=== PATIENT | male | born 1965 | race African-American/Black ===

== ENCOUNTER 2017-09-08 05:21 | Inpatient (IN) | payer MEDICARE, MEDICAID ==
[~2017-09-08] VITALS: Ht 170.2 cm; Wt 111.8 kg
[2017-09-08] VITALS (56 sets, daily range): BP systolic 77–166; BP diastolic 42–109
[~2017-09-08 05:21] MED LIST: ASPI-1158; FUROSEMIDE; GLYBURIDE; LISINOPRIL
[2017-09-08] MEDS ORDERED: SODIUM CHLORIDE 0.9% 500 ML IV ONE (05:36)
[2017-09-08] MEDS ORDERED: ONDANSETRON HCL 4MG/2ML VIAL IV STA (05:36)
[2017-09-08] MEDS ORDERED: PHENYTOIN SODIUM 500 MG in SODIUM CHLORIDE 0.9% 50 ML IV ONE (06:15)
[2017-09-08] MEDS ORDERED: NICARDIPINE 100 MG in SODIUM CHLORIDE 0.9% 60 ML IV PRN ×2 (06:15→07:30)
[2017-09-08] MEDS ORDERED: LABETALOL 5MG/ML SYR 20 MG/4 ML SYRINGE IV ONE (06:15)
[2017-09-08] MEDS ORDERED: NICARDIPINE 100 MG in SODIUM CHLORIDE 0.9% 60 ML IV ONE (06:30)
[2017-09-08] MEDS ORDERED: DEXAMETHASONE 10 MG/ML VIAL IV ONE (06:30)
[2017-09-08 06:32] LABS: BASOPHILS % 0.7 % (0.0-2.0); EOSINOPHILS % 0.8 % (0.0-5.0); HEMATOCRIT. 33.3 % (42.0-52.0); HEMOGLOBIN. 11.5 g/dL (14.0-18.0); LYMPHOCYTES % 12.9 % (20.0-50.0); MEAN CORPUSCULAR HEMOGLOBIN 35.4 pg (28.0-32.0); MEAN PLATELET VOLUME 8.3 fl (7.4-10.4); MONOCYTES % 6.3 % (2.0-8.0); NEUTROPHILS % 79.3 % (40.0-76.0); PLATELET 152 x1000/uL (130-400); RED BLOOD CELL COUNT 3.26 mill/uL (4.7-6.1); RED CELL DISTRIBUTION WIDTH 16.7 % (11.6-14.6)
[2017-09-08 06:33] LABS: INR 1.1; PROTHROMBIN TIME 11.7 sec (9.4-11.6)
[2017-09-08 06:52] LABS: CARBON DIOXIDE 28 mEq/L (21-32); CHLORIDE 96 mEq/L (98-107); CREATINE KINASE 124 IU/L (39-308); ETHANOL BLOOD < 10 mg/dL; LDL CHOLESTEROL 98 mg/dL (5-100); TROPONIN I < 0.02 ng/mL (0.00-0.04)
[2017-09-08] MEDS ORDERED: FENTANYL CITRATE/PF 50MCG/ML 2ML VIAL IV ONE (07:00)
[2017-09-08] MEDS ORDERED: ONDANSETRON HCL 4MG/2ML VIAL IV PRN ×2 (07:30→14:15)
[2017-09-08 08:12] LABS: CLARITY URINE CLEAR (CLEAR); COLOR URINE YELLOW (YELLOW); KETONES URINE NEGATIVE (NEGATIVE); LEUKOCYTE ESTERASE URINE NEGATIVE (NEGATIVE); NITRITE URINE NEGATIVE (NEGATIVE); OCCULT BLOOD URINE TRACE (NEGATIVE); PH URINE 8.5 (4.5-8.0); PROTEIN URINE 3+ (NEGATIVE); SPECIFIC GRAVITY URINE 1.011 (1.005-1.030); UROBILINOGEN URINE 0.2 E.U./dL (0.2-1.0)
[2017-09-08] MEDS: DEXT 5%/LACTATED RINGERS 1,000 ML IV SCH (08:49)
[2017-09-08] MEDS ORDERED: DEXTROSE 50% WATER 50ML SYRINGE IV PRN (09:00)
[2017-09-08 09:28] LABS: *AMPHETAMINES SCREEN URINE NEGATIVE (NEGATIVE); *BARBITURATES SCREEN URINE NEGATIVE (NEGATIVE); *BENZODIAZEPINES SCREEN URINE NEGATIVE (NEGATIVE); *COCAINE SCREEN URINE NEGATIVE (NEGATIVE); CANNABINOID URINE SCREEN NEGATIVE (NEGATIVE); METHADONE URINE SCREEN NEGATIVE (NEGATIVE); OPIATES URINE SCREEN PRESUMTIVE POSITIVE (NEGATIVE); PHENCYCLIDINE URINE SCREEN NEGATIVE (NEGATIVE)
[2017-09-08] MEDS: PANTOPRAZOLE SODIUM 40 MG/VIAL IV SCH (11:12)
[2017-09-08] MEDS: MORPHINE SULFATE 2 MG/ML CPJ (NOT FOR IM USE) IV PRN ×2 (11:17→23:51)
[2017-09-08] MEDS: BLOOD SUGAR DIAGNOSTIC STRIP TEST SCH ×4 (11:30→21:00)
[2017-09-08 12:24] LABS: BG BASE EXCESS -2.2 mmol/L (-2.0-2.0); BG CARBOXYHEMOGLOBIN 0.7 % (0.5-1.5); BG DEOXYHEMOGLOBIN 11.1 % (0.0-5.0); BG FRACTION INSPIRED OXYGEN 21; BG HCO3 ACT 23.6 mmol/L (22.0-26.0); BG METHEMOGLOBIN 0.8 % (0.0-1.5); BG OXYGEN SATURATION 88.7 % (92.0-98.5); BG OXYHEMOGLOBIN 87.4 % (94.0-97.0); BG PCO2 44.3 mmHg (35.0-45.0); BG PH 7.344 (7.350-7.450); BG PO2 63.3 mmHg (75.0-100.0); BG SAMPLE SITE RIGHT RADIAL; BG TOTAL HEMOGLOBIN 11.6 g/dL (12.0-18.0); BG VENT MODE ROOM AIR
[2017-09-08] MEDS: NICARDIPINE 100 MG in SODIUM CHLORIDE 0.9% 60 ML IV PRN ×2 (13:13→21:35)
[2017-09-08] MEDS: DEXAMETHASONE 4MG/ML 1ML VIAL IV SCH ×3 (13:48→23:31)
[2017-09-08] MEDS: PHENYTOIN SODIUM 250MG/5ML VIAL IV SCH ×2 (13:51→23:27)
[2017-09-08] MEDS: INSULIN LISPRO 100 UNITS/ML SUBCUT SCH ×3 (13:51→23:34)
[2017-09-08] MEDS ORDERED: SODIUM POLYSTYRENE SULFONATE 15 G/60 ML BOT PR NR (15:15)
[2017-09-08] MEDS ORDERED: INSULIN REGULAR (HUMULIN R) UD 100 UNITS/ML SYR IV NR ×2 (17:15→18:30)
[2017-09-08] MEDS ORDERED: DEXTROSE 50% WATER 50ML SYRINGE IV NR (17:15)
[2017-09-08] MEDS ORDERED: CALCIUM GLUCONATE 1,000 MG in DEXT 5% WATER 90 ML IV NR (17:15)
[2017-09-09] VITALS (90 sets, daily range): BP systolic 76–187; BP diastolic 29–134
[2017-09-09] MEDS: DEXT 5%/LACTATED RINGERS 1,000 ML IV SCH ×3 (03:30→23:30)
[2017-09-09] MEDS: PHENYTOIN SODIUM 250MG/5ML VIAL IV SCH ×3 (05:20→22:13)
[2017-09-09] MEDS: DEXAMETHASONE 4MG/ML 1ML VIAL IV SCH ×3 (05:20→18:07)
[2017-09-09] MEDS: BLOOD SUGAR DIAGNOSTIC STRIP TEST SCH ×4 (05:42→21:00)
[2017-09-09 05:55] LABS: HEMATOCRIT. 29.4 % (42.0-52.0); HEMOGLOBIN. 10.2 g/dL (14.0-18.0); MEAN CORPUSCULAR VOLUME 100.2 fL (80.0-94.0); MEAN PLATELET VOLUME 9.1 fl (7.4-10.4); PLATELET 150 x1000/uL (130-400); RED BLOOD CELL COUNT 2.93 mill/uL (4.7-6.1); RED CELL DISTRIBUTION WIDTH 16.4 % (11.6-14.6)
[2017-09-09] MEDS: INSULIN LISPRO 100 UNITS/ML SUBCUT SCH ×4 (06:24→22:14)
[2017-09-09 06:37] LABS: CARBON DIOXIDE 24 mEq/L (21-32); CHLORIDE 97 mEq/L (98-107)
[2017-09-09 07:18] LABS: PHOSPHORUS 8.7 mg/dL (2.5-4.9)
[2017-09-09] MEDS ORDERED: IPRATROPIUM/ALBUTEROL 0.5-3(2.5)MG/3ML NEB HHN PRN (08:30)
[2017-09-09] MEDS ORDERED: IOHEXOL-350 100 ML BOTTLE ONE (09:03)
[2017-09-09] MEDS: BUDESONIDE 0.5MG/2ML NEB HHN SCH ×2 (09:05→20:33)
[2017-09-09] MEDS: IPRATROPIUM/ALBUTEROL 0.5-3(2.5)MG/3ML NEB HHN SCH ×3 (09:05→20:34)
[2017-09-09] MEDS: PANTOPRAZOLE SODIUM 40 MG/VIAL IV SCH (10:08)
[2017-09-09] MEDS: NICARDIPINE 100 MG in SODIUM CHLORIDE 0.9% 60 ML IV PRN ×2 (13:27→20:22)
[2017-09-09] MEDS: CLONIDINE 0.1MG TABLET PO PRN (18:06)
[2017-09-09 18:56] LABS: ATYPICAL LYMPHOCYTES 2; PLATELET ESTIMATE NORMAL
[2017-09-09] MEDS: MORPHINE SULFATE 2 MG/ML CPJ (NOT FOR IM USE) IV PRN (23:57)
[2017-09-10] VITALS (89 sets, daily range): BP systolic 78–177; BP diastolic 26–120
[2017-09-10] MEDS: DEXAMETHASONE 4MG/ML 1ML VIAL IV SCH ×4 (00:29→17:43)
[2017-09-10] MEDS: IPRATROPIUM/ALBUTEROL 0.5-3(2.5)MG/3ML NEB HHN SCH ×4 (02:03→20:47)
[2017-09-10] MEDS: DEXT 5%/LACTATED RINGERS 1,000 ML IV SCH (04:25)
[2017-09-10 05:54] LABS: HEMATOCRIT. 27.6 % (42.0-52.0); HEMOGLOBIN. 9.4 g/dL (14.0-18.0); MEAN CORPUSCULAR HEMOGLOBIN 34.6 pg (28.0-32.0); MEAN CORPUSCULAR VOLUME 101.4 fL (80.0-94.0); MEAN PLATELET VOLUME 8.7 fl (7.4-10.4); PLATELET 125 x1000/uL (130-400); RED BLOOD CELL COUNT 2.72 mill/uL (4.7-6.1); RED CELL DISTRIBUTION WIDTH 16.5 % (11.6-14.6)
[2017-09-10] MEDS: PHENYTOIN SODIUM 250MG/5ML VIAL IV SCH ×3 (06:41→21:38)
[2017-09-10] MEDS: BLOOD SUGAR DIAGNOSTIC STRIP TEST SCH ×4 (06:48→21:38)
[2017-09-10] MEDS: INSULIN LISPRO 100 UNITS/ML SUBCUT SCH ×4 (06:52→21:44)
[2017-09-10] MEDS: BUDESONIDE 0.5MG/2ML NEB HHN SCH ×2 (08:45→20:48)
[2017-09-10] MEDS: PANTOPRAZOLE SODIUM 40 MG/VIAL IV SCH (09:30)
[2017-09-10] MEDS: AMLODIPINE 5MG TABLET PO SCH (09:30)
[2017-09-10] MEDS ORDERED: SODIUM POLYSTYRENE SULFONATE 15 G/60 ML BOT PO NR (10:30)
[2017-09-10 14:01] LABS: PLATELET ESTIMATE SLIGHTLY DECREASED
[2017-09-10] MEDS: CLONIDINE 0.1MG TABLET PO PRN (14:34)
[2017-09-10] MEDS ORDERED: LORAZEPAM 2MG/ML CPJ IV PRN (17:33)
[2017-09-10] MEDS: LEVETIRACETAM 500MG PREMIX 100 ML IV SCH (18:19)
[2017-09-10] MEDS: MORPHINE SULFATE 2 MG/ML CPJ (NOT FOR IM USE) IV PRN (19:37)
[2017-09-10] MEDS ORDERED: PHENYTOIN SODIUM EXTENDED 100MG CAPSULE PO SCH (22:00)
[2017-09-11] VITALS (92 sets, daily range): BP systolic 88–206; BP diastolic 40–118
[2017-09-11] MEDS: DEXAMETHASONE 4MG/ML 1ML VIAL IV SCH ×5 (00:30→23:34)
[2017-09-11] MEDS: MORPHINE SULFATE 2 MG/ML CPJ (NOT FOR IM USE) IV PRN ×2 (01:23→13:29)
[2017-09-11] MEDS: IPRATROPIUM/ALBUTEROL 0.5-3(2.5)MG/3ML NEB HHN SCH ×4 (01:26→20:29)
[2017-09-11] MEDS: PHENYTOIN SODIUM 250MG/5ML VIAL IV SCH (05:08)
[2017-09-11 05:24] LABS: HEMATOCRIT. 31.8 % (42.0-52.0); HEMOGLOBIN. 10.5 g/dL (14.0-18.0); MEAN CORPUSCULAR HEMOGLOBIN 33.5 pg (28.0-32.0); MEAN CORPUSCULAR VOLUME 100.9 fL (80.0-94.0); MEAN PLATELET VOLUME 9.2 fl (7.4-10.4); PLATELET 137 x1000/uL (130-400); RED BLOOD CELL COUNT 3.15 mill/uL (4.7-6.1); RED CELL DISTRIBUTION WIDTH 16.3 % (11.6-14.6)
[2017-09-11] MEDS: LEVETIRACETAM 500MG PREMIX 100 ML IV SCH ×2 (06:23→17:34)
[2017-09-11] MEDS: BLOOD SUGAR DIAGNOSTIC STRIP TEST SCH ×4 (06:23→21:09)
[2017-09-11] MEDS: INSULIN LISPRO 100 UNITS/ML SUBCUT SCH ×4 (06:36→21:58)
[2017-09-11 07:41] LABS: PLATELET ESTIMATE NORMAL
[2017-09-11] MEDS: BUDESONIDE 0.5MG/2ML NEB HHN SCH ×2 (07:54→20:29)
[2017-09-11] MEDS: AMLODIPINE 5MG TABLET PO SCH (09:00)
[2017-09-11 09:30] LABS: BG CARBOXYHEMOGLOBIN 0.3 % (0.5-1.5); BG DEOXYHEMOGLOBIN 5.4 % (0.0-5.0); BG FRACTION INSPIRED OXYGEN 21; BG HCO3 ACT 22.2 mmol/L (22.0-26.0); BG METHEMOGLOBIN 0.3 % (0.0-1.5); BG OXYGEN SATURATION 94.6 % (92.0-98.5); BG PCO2 40.3 mmHg (35.0-45.0); BG PH 7.359 (7.350-7.450); BG PO2 81.2 mmHg (75.0-100.0); BG SAMPLE SITE RIGHT RADIAL; BG VENT MODE ROOM AIR
[2017-09-11] MEDS: PANTOPRAZOLE SODIUM 40 MG/VIAL IV SCH (09:35)
[2017-09-11] MEDS ORDERED: PHENYTOIN SODIUM 500 MG in SODIUM CHLORIDE 0.9% 50 ML IV NR (14:30)
[2017-09-11] MEDS: PHENYTOIN SODIUM 100MG/2ML VIAL IV SCH ×2 (16:45→21:57)
[2017-09-12] VITALS (99 sets, daily range): BP systolic 82–178; BP diastolic 33–121
[2017-09-12] MEDS: IPRATROPIUM/ALBUTEROL 0.5-3(2.5)MG/3ML NEB HHN SCH ×4 (00:42→20:02)
[2017-09-12] MEDS: PHENYTOIN SODIUM 100MG/2ML VIAL IV SCH ×3 (05:20→21:21)
[2017-09-12] MEDS: DEXAMETHASONE 4MG/ML 1ML VIAL IV SCH ×3 (05:20→17:01)
[2017-09-12] MEDS: BLOOD SUGAR DIAGNOSTIC STRIP TEST SCH ×4 (05:37→21:35)
[2017-09-12 05:58] LABS: HEMATOCRIT. 29.9 % (42.0-52.0); MEAN CORPUSCULAR HEMOGLOBIN 33.5 pg (28.0-32.0); MEAN CORPUSCULAR VOLUME 100.7 fL (80.0-94.0); MEAN PLATELET VOLUME 9.1 fl (7.4-10.4); PLATELET 124 x1000/uL (130-400); RED BLOOD CELL COUNT 2.97 mill/uL (4.7-6.1)
[2017-09-12] MEDS: LEVETIRACETAM 500MG PREMIX 100 ML IV SCH (06:09)
[2017-09-12] MEDS: INSULIN LISPRO 100 UNITS/ML SUBCUT SCH ×4 (06:09→21:43)
[2017-09-12] MEDS: MORPHINE SULFATE 2 MG/ML CPJ (NOT FOR IM USE) IV PRN (06:32)
[2017-09-12] MEDS: CLONIDINE 0.1MG TABLET PO PRN (06:33)
[2017-09-12] MEDS: BUDESONIDE 0.5MG/2ML NEB HHN SCH (08:19)
[2017-09-12 08:53] LABS: BG BASE EXCESS -1.5 mmol/L (-2.0-2.0); BG CARBOXYHEMOGLOBIN 0.4 % (0.5-1.5); BG DEOXYHEMOGLOBIN 5.9 % (0.0-5.0); BG HCO3 ACT 24.8 mmol/L (22.0-26.0); BG METHEMOGLOBIN 0.3 % (0.0-1.5); BG OXYGEN SATURATION 94.1 % (92.0-98.5); BG OXYHEMOGLOBIN 93.4 % (94.0-97.0); BG PCO2 48.3 mmHg (35.0-45.0); BG PH 7.328 (7.350-7.450); BG PO2 78.8 mmHg (75.0-100.0); BG SAMPLE SITE RIGHT BRACHIAL; BG TOTAL HEMOGLOBIN 11.2 g/dL (12.0-18.0); BG VENT MODE ROOM AIR
[2017-09-12] MEDS: AMLODIPINE 5MG TABLET PO SCH (09:00)
[2017-09-12 09:07] LABS: PLATELET ESTIMATE SLIGHTLY DECREASED
[2017-09-12] MEDS ORDERED: ACETAMINOPHEN 650MG SUPP PR PRN ×2 (09:30→09:45)
[2017-09-12] MEDS: PANTOPRAZOLE SODIUM 40 MG/VIAL IV SCH (10:23)
[2017-09-12] MEDS ORDERED: LEVETIRACETAM 500MG PREMIX 100 ML IV SCH (14:15)
[2017-09-12] MEDS ORDERED: LEVETIRACETAM 1,000 MG in SODIUM CHLORIDE 0.9% 100 ML IV SCH (14:30)
[2017-09-12] MEDS ORDERED: PHENYTOIN SODIUM 500 MG in SODIUM CHLORIDE 0.9% 50 ML IV NR (16:30)
[2017-09-12] MEDS: LEVETIRACETAM 1000MG PREMIX 100 ML IV SCH (21:21)
[2017-09-13] VITALS (106 sets, daily range): BP systolic 59–208; BP diastolic 39–111
[2017-09-13] MEDS: IPRATROPIUM/ALBUTEROL 0.5-3(2.5)MG/3ML NEB HHN SCH ×3 (01:59→20:41)
[2017-09-13] MEDS ORDERED: LEVETIRACETAM 1,000 MG in SODIUM CHLORIDE 0.9% 100 ML IV SCH ×2 (02:30→22:00)
[2017-09-13] MEDS ORDERED: SODIUM CHLORIDE 0.9% IV NR (04:30)
[2017-09-13] MEDS ORDERED: PHENYTOIN SODIUM IV NR (04:30)
[2017-09-13] MEDS: BLOOD SUGAR DIAGNOSTIC STRIP TEST SCH ×4 (05:56→21:16)
[2017-09-13] MEDS: PHENYTOIN SODIUM 100MG/2ML VIAL IV SCH ×3 (05:58→22:06)
[2017-09-13] MEDS: INSULIN LISPRO 100 UNITS/ML SUBCUT SCH ×4 (05:59→21:53)
[2017-09-13] MEDS ORDERED: SODIUM BICARBONATE 4% (2.4MEQ) 5ML VIAL IV ONE (07:21)
[2017-09-13 08:28] LABS: PHOSPHORUS 9.4 mg/dL (2.5-4.9)
[2017-09-13] MEDS: LEVETIRACETAM 1000MG PREMIX 100 ML IV SCH (08:30)
[2017-09-13] MEDS: DEXAMETHASONE 4MG/ML 1ML VIAL IV SCH ×2 (08:58→21:01)
[2017-09-13] MEDS: PANTOPRAZOLE SODIUM 40 MG/VIAL IV SCH (08:59)
[2017-09-13] MEDS: AMLODIPINE 5MG TABLET PO SCH (09:00)
[2017-09-13 10:38] LABS: INR 1.2; PROTHROMBIN TIME 12.4 sec (9.4-11.6)
[2017-09-13] MEDS ORDERED: LIDOCAINE 1%/EPI 1:200,000 10 ML VIAL IJ ONE (10:52)
[2017-09-13] MEDS ORDERED: GELATIN SPONGE,ABSORBABLE SZ 100 ONE (10:52)
[2017-09-13] MEDS ORDERED: THROMBIN (BOVINE) 5000 UNITS/VIAL TOP ONE (10:52)
[2017-09-13] MEDS ORDERED: PHENYTOIN SODIUM 250MG/5ML VIAL IV ONE (10:53)
[2017-09-13] MEDS ORDERED: NORMAL SALINE 0.9% 10 ML SYR ONE (10:53)
[2017-09-13] MEDS ORDERED: BACITRACIN ZINC 15GM TUBE TOP ONE (10:53)
[2017-09-13] MEDS ORDERED: BACITRACIN 50,000 UNITS/VIAL ONE (10:53)
[2017-09-13] MEDS ORDERED: PHENYTOIN SODIUM 500 MG in SODIUM CHLORIDE 0.9% 50 ML IV SCH (11:00)
[2017-09-13] MEDS ORDERED: PROPOFOL 200MG/20ML VIAL IV ONE (11:04)
[2017-09-13] MEDS ORDERED: CEFAZOLIN SODIUM 1000MG/VIAL ONE (11:37)
[2017-09-13] MEDS ORDERED: SODIUM CHLORIDE 0.9% 10ML VIAL ONE (11:37)
[2017-09-13] MEDS ORDERED: MIDAZOLAM HCL 2 MG/2 ML VIAL ONE (11:44)
[2017-09-13] MEDS ORDERED: FENTANYL CITRATE/PF 50MCG/ML 5ML VIAL ONE (11:47)
[2017-09-13] MEDS ORDERED: ONDANSETRON HCL 4MG/2ML VIAL ONE (12:13)
[2017-09-13] MEDS ORDERED: ROCURONIUM BROMIDE 10MG/ML VIAL 5ML IV ONE (12:32)
[2017-09-13] MEDS: NICARDIPINE 100 MG in SODIUM CHLORIDE 0.9% 60 ML IV PRN (13:11)
[2017-09-13] MEDS ORDERED: MORPHINE SULFATE 10 MG/ML CPJ ONE (13:28)
[2017-09-13] MEDS ORDERED: HYDRALAZINE 20MG/ML VIAL ONE (13:28)
[2017-09-13] MEDS ORDERED: HYDRALAZINE 20MG/ML VIAL IV ONE (13:30)
[2017-09-13] MEDS ORDERED: MORPHINE SULFATE 2 MG/ML CPJ (NOT FOR IM USE) IV PRN (13:30)
[2017-09-13] MEDS: PROPOFOL 10MG/ML 100ML 100 ML IV PRN ×3 (13:40→20:57)
[2017-09-13] MEDS ORDERED: CEFAZOLIN SODIUM 1000MG/VIAL IV SCH (14:00)
[2017-09-13 14:08] LABS: BG BASE EXCESS -5.4 mmol/L (-2.0-2.0); BG CARBOXYHEMOGLOBIN 0.4 % (0.5-1.5); BG DEOXYHEMOGLOBIN 6.5 % (0.0-5.0); BG FRACTION INSPIRED OXYGEN 50; BG HCO3 ACT 18.6 mmol/L (22.0-26.0); BG METHEMOGLOBIN 0.1 % (0.0-1.5); BG OXYGEN SATURATION 93.5 % (92.0-98.5); BG PCO2 31.3 mmHg (35.0-45.0); BG PH 7.392 (7.350-7.450); BG PO2 72.1 mmHg (75.0-100.0); BG SAMPLE SITE RIGHT BRACHIAL; BG TIDAL VOLUME(mL) 600 mL; BG TOTAL HEMOGLOBIN 11.1 g/dL (12.0-18.0); BG VENT MODE VENT - A/C; BG VENT RATE 14 set
[2017-09-13] MEDS: FENTANYL CITRATE/PF 500 MCG in SODIUM CHLORIDE 0.9% 40 ML IV PRN (20:30)
[2017-09-14] VITALS (94 sets, daily range): BP systolic 90–162; BP diastolic 48–85
[2017-09-14] MEDS: PROPOFOL 10MG/ML 100ML 100 ML IV PRN ×4 (00:07→08:53)
[2017-09-14] MEDS: IPRATROPIUM/ALBUTEROL 0.5-3(2.5)MG/3ML NEB HHN SCH ×4 (02:31→20:23)
[2017-09-14 05:29] LABS: BASOPHILS % 0.1 % (0.0-2.0); EOSINOPHILS % 0.2 % (0.0-5.0); HEMOGLOBIN. 9.3 g/dL (14.0-18.0); LYMPHOCYTES % 7.4 % (20.0-50.0); MEAN CORPUSCULAR HEMOGLOBIN 33.1 pg (28.0-32.0); MEAN CORPUSCULAR VOLUME 99.3 fL (80.0-94.0); MEAN PLATELET VOLUME 9.1 fl (7.4-10.4); MONOCYTES % 4.4 % (2.0-8.0); NEUTROPHILS % 87.9 % (40.0-76.0); PLATELET 129 x1000/uL (130-400); RED BLOOD CELL COUNT 2.82 mill/uL (4.7-6.1); RED CELL DISTRIBUTION WIDTH 15.8 % (11.6-14.6)
[2017-09-14] MEDS: PHENYTOIN SODIUM 100MG/2ML VIAL IV SCH ×3 (06:51→21:18)
[2017-09-14] MEDS: NICARDIPINE 100 MG in SODIUM CHLORIDE 0.9% 60 ML IV PRN (06:52)
[2017-09-14] MEDS: BLOOD SUGAR DIAGNOSTIC STRIP TEST SCH ×5 (06:57→23:45)
[2017-09-14] MEDS: INSULIN LISPRO 100 UNITS/ML SUBCUT SCH ×4 (07:00→23:54)
[2017-09-14 07:48] LABS: PHOSPHORUS 8.1 mg/dL (2.5-4.9)
[2017-09-14] MEDS: FENTANYL CITRATE/PF 500 MCG in SODIUM CHLORIDE 0.9% 40 ML IV PRN ×2 (08:55→18:42)
[2017-09-14] MEDS: DEXAMETHASONE 4MG/ML 1ML VIAL IV SCH ×2 (08:56→20:30)
[2017-09-14] MEDS: LEVETIRACETAM 1000MG PREMIX 100 ML IV SCH ×2 (08:56→20:30)
[2017-09-14] MEDS: AMLODIPINE 5MG TABLET PO SCH (09:00)
[2017-09-14] MEDS: CEFAZOLIN 1000MG PREMIX 50 ML IV SCH (10:00)
[2017-09-14] MEDS: PANTOPRAZOLE SODIUM 40 MG/VIAL IV SCH (11:15)
[2017-09-14] MEDS ORDERED: MIDAZOLAM HCL 100 MG in DEXT 5% WATER 80 ML IV PRN (11:45)
[2017-09-14 12:16] LABS: BG CARBOXYHEMOGLOBIN 0.3 % (0.5-1.5); BG DEOXYHEMOGLOBIN 4.4 % (0.0-5.0); BG FRACTION INSPIRED OXYGEN 50; BG HCO3 ACT 22.3 mmol/L (22.0-26.0); BG METHEMOGLOBIN 0.3 % (0.0-1.5); BG OXYGEN SATURATION 95.6 % (92.0-98.5); BG PCO2 28.7 mmHg (35.0-45.0); BG PH 7.509 (7.350-7.450); BG SAMPLE SITE RIGHT RADIAL; BG TIDAL VOLUME(mL) 500 mL; BG TOTAL HEMOGLOBIN 10.7 g/dL (12.0-18.0); BG VENT MODE VENT - A/C; BG VENT RATE 14 set
[2017-09-14] MEDS: MIDAZOLAM HCL 100 MG in SODIUM CHLORIDE 0.9% 80 ML IV PRN ×2 (12:52→21:26)
[2017-09-15] VITALS (97 sets, daily range): BP systolic 102–165; BP diastolic 39–77
[2017-09-15] MEDS: IPRATROPIUM/ALBUTEROL 0.5-3(2.5)MG/3ML NEB HHN SCH ×2 (01:45→20:27)
[2017-09-15] MEDS: FENTANYL CITRATE/PF 500 MCG in SODIUM CHLORIDE 0.9% 40 ML IV PRN (02:37)
[2017-09-15 05:49] LABS: BASOPHILS % 0.1 % (0.0-2.0); EOSINOPHILS % 0.7 % (0.0-5.0); HEMATOCRIT. 27.3 % (42.0-52.0); HEMOGLOBIN. 9.1 g/dL (14.0-18.0); LYMPHOCYTES % 8.8 % (20.0-50.0); MEAN CORPUSCULAR HEMOGLOBIN 32.9 pg (28.0-32.0); MEAN CORPUSCULAR VOLUME 98.7 fL (80.0-94.0); MEAN PLATELET VOLUME 9.5 fl (7.4-10.4); NEUTROPHILS % 86.4 % (40.0-76.0); PLATELET 121 x1000/uL (130-400); RED BLOOD CELL COUNT 2.76 mill/uL (4.7-6.1); RED CELL DISTRIBUTION WIDTH 16.3 % (11.6-14.6)
[2017-09-15] MEDS: BLOOD SUGAR DIAGNOSTIC STRIP TEST SCH ×4 (06:07→23:48)
[2017-09-15] MEDS: PHENYTOIN SODIUM 100MG/2ML VIAL IV SCH ×3 (06:09→21:11)
[2017-09-15] MEDS: INSULIN LISPRO 100 UNITS/ML SUBCUT SCH ×4 (06:09→23:48)
[2017-09-15 06:11] LABS: PHOSPHORUS 6.9 mg/dL (2.5-4.9)
[2017-09-15] MEDS: NICARDIPINE 100 MG in SODIUM CHLORIDE 0.9% 60 ML IV PRN (08:30)
[2017-09-15] MEDS: AMLODIPINE 5MG TABLET PO SCH (09:00)
[2017-09-15] MEDS: LEVETIRACETAM 1000MG PREMIX 100 ML IV SCH ×2 (09:12→21:13)
[2017-09-15] MEDS: PANTOPRAZOLE SODIUM 40 MG/VIAL IV SCH (09:12)
[2017-09-15] MEDS: DEXAMETHASONE 4MG/ML 1ML VIAL IV SCH ×2 (09:13→20:40)
[2017-09-15] MEDS: CEFAZOLIN 1000MG PREMIX 50 ML IV SCH (10:40)
[2017-09-15] MEDS ORDERED: CLOPIDOGREL 75MG TABLET PO ONE (13:45)
[2017-09-15] MEDS: METRONIDAZOLE 500 MG PREMIX 100 ML IV SCH ×2 (14:00→21:11)
[2017-09-15] MEDS: CEFEPIME 2,000 MG in DEXTROSE 5% WATER 50 ML IV SCH (20:40)
[2017-09-16] VITALS (84 sets, daily range): BP systolic 111–168; BP diastolic 50–96
[2017-09-16] MEDS: IPRATROPIUM/ALBUTEROL 0.5-3(2.5)MG/3ML NEB HHN SCH ×4 (03:14→21:05)
[2017-09-16] MEDS: METRONIDAZOLE 500 MG PREMIX 100 ML IV SCH ×3 (05:28→21:50)
[2017-09-16] MEDS: PHENYTOIN SODIUM 100MG/2ML VIAL IV SCH ×3 (05:28→21:35)
[2017-09-16] MEDS: BLOOD SUGAR DIAGNOSTIC STRIP TEST SCH ×3 (05:29→18:15)
[2017-09-16] MEDS: INSULIN LISPRO 100 UNITS/ML SUBCUT SCH ×3 (05:29→18:00)
[2017-09-16 05:44] LABS: BASOPHILS % 0.3 % (0.0-2.0); EOSINOPHILS % 2.4 % (0.0-5.0); HEMATOCRIT. 27.2 % (42.0-52.0); HEMOGLOBIN. 9.2 g/dL (14.0-18.0); LYMPHOCYTES % 7.7 % (20.0-50.0); MEAN CORPUSCULAR VOLUME 99.9 fL (80.0-94.0); MEAN PLATELET VOLUME 9.6 fl (7.4-10.4); MONOCYTES % 4.3 % (2.0-8.0); NEUTROPHILS % 85.3 % (40.0-76.0); PLATELET 114 x1000/uL (130-400); RED BLOOD CELL COUNT 2.72 mill/uL (4.7-6.1); RED CELL DISTRIBUTION WIDTH 16.4 % (11.6-14.6)
[2017-09-16 06:11] LABS: PHOSPHORUS 7.5 mg/dL (2.5-4.9)
[2017-09-16 08:37] LABS: BG BASE EXCESS -0.9 mmol/L (-2.0-2.0); BG CARBOXYHEMOGLOBIN 0.3 % (0.5-1.5); BG DEOXYHEMOGLOBIN 2.3 % (0.0-5.0); BG METHEMOGLOBIN 0.3 % (0.0-1.5); BG OXYGEN SATURATION 97.7 % (92.0-98.5); BG OXYHEMOGLOBIN 97.1 % (94.0-97.0); BG PCO2 30.1 mmHg (35.0-45.0); BG PH 7.482 (7.350-7.450); BG PO2 107.4 mmHg (75.0-100.0); BG SAMPLE SITE RIGHT RADIAL; BG TIDAL VOLUME(mL) 500 mL; BG TOTAL HEMOGLOBIN 9.2 g/dL (12.0-18.0); BG VENT MODE VENT - A/C
[2017-09-16 08:40] LABS: BG FRACTION INSPIRED OXYGEN 50; BG VENT RATE 14 set
[2017-09-16 08:41] LABS: BG PEEP (cmH2O) 5 cmH2O; BG TOTAL RESPIRATORY RATE 22 b/min
[2017-09-16] MEDS: AMLODIPINE 5MG TABLET PO SCH (09:00)
[2017-09-16] MEDS ORDERED: CLOPIDOGREL 75MG TABLET PO SCH (09:00)
[2017-09-16] MEDS: DEXAMETHASONE 4MG/ML 1ML VIAL IV SCH ×2 (09:12→21:35)
[2017-09-16] MEDS: LEVETIRACETAM 1000MG PREMIX 100 ML IV SCH ×2 (09:12→21:07)
[2017-09-16] MEDS: CEFEPIME 2,000 MG in DEXTROSE 5% WATER 50 ML IV SCH (20:00)
[2017-09-16] MEDS: NICARDIPINE 100 MG in SODIUM CHLORIDE 0.9% 60 ML IV PRN (20:19)
[2017-09-16] MEDS ORDERED: MORPHINE SULFATE 2 MG/ML CPJ (NOT FOR IM USE) IV PRN (21:30)
[2017-09-16] MEDS: FENTANYL CITRATE/PF 500 MCG in SODIUM CHLORIDE 0.9% 40 ML IV PRN (22:43)
[2017-09-17] VITALS (94 sets, daily range): BP systolic 98–160; BP diastolic 47–93
[2017-09-17] MEDS: BLOOD SUGAR DIAGNOSTIC STRIP TEST SCH ×4 (00:54→18:47)
[2017-09-17] MEDS: INSULIN LISPRO 100 UNITS/ML SUBCUT SCH ×4 (00:54→18:47)
[2017-09-17] MEDS: IPRATROPIUM/ALBUTEROL 0.5-3(2.5)MG/3ML NEB HHN SCH ×4 (02:20→20:41)
[2017-09-17] MEDS: METRONIDAZOLE 500 MG PREMIX 100 ML IV SCH ×3 (06:47→22:22)
[2017-09-17] MEDS: PHENYTOIN SODIUM 100MG/2ML VIAL IV SCH ×3 (06:50→22:22)
[2017-09-17] MEDS: FENTANYL CITRATE/PF 500 MCG in SODIUM CHLORIDE 0.9% 40 ML IV PRN (08:40)
[2017-09-17] MEDS: AMLODIPINE 5MG TABLET PO SCH (08:45)
[2017-09-17] MEDS: DEXAMETHASONE 4MG/ML 1ML VIAL IV SCH ×2 (08:53→22:22)
[2017-09-17] MEDS: LEVETIRACETAM 1000MG PREMIX 100 ML IV SCH ×2 (08:54→21:19)
[2017-09-17 11:48] LABS: BG BASE EXCESS -1.9 mmol/L (-2.0-2.0); BG CARBOXYHEMOGLOBIN 0.3 % (0.5-1.5); BG FRACTION INSPIRED OXYGEN 40; BG HCO3 ACT 23.7 mmol/L (22.0-26.0); BG METHEMOGLOBIN 0.3 % (0.0-1.5); BG OXYHEMOGLOBIN 95.4 % (94.0-97.0); BG PO2 95.7 mmHg (75.0-100.0); BG PRESSURE SUPPORT 8; BG SAMPLE SITE RIGHT RADIAL; BG TOTAL HEMOGLOBIN 10.5 g/dL (12.0-18.0); BG VENT MODE VENT - CPAP
[2017-09-17] MEDS: RACEPINEPHRINE 2.25% 0.5ML NEB VIAL HHN PRN (12:39)
[2017-09-17] MEDS: NICARDIPINE 100 MG in SODIUM CHLORIDE 0.9% 60 ML IV PRN (13:28)
[2017-09-17] MEDS ORDERED: LORAZEPAM 2MG/ML CPJ IV PRN (17:15)
[2017-09-17] MEDS ORDERED: DEXAMETHASONE 4MG TABLET PO SCH (18:00)
[2017-09-17] MEDS: CEFEPIME 2,000 MG in DEXTROSE 5% WATER 50 ML IV SCH (20:22)
[2017-09-18] VITALS (96 sets, daily range): BP systolic 100–167; BP diastolic 54–94
[2017-09-18] MEDS: INSULIN LISPRO 100 UNITS/ML SUBCUT SCH ×4 (00:55→17:27)
[2017-09-18] MEDS: BLOOD SUGAR DIAGNOSTIC STRIP TEST SCH ×4 (00:55→17:23)
[2017-09-18] MEDS: IPRATROPIUM/ALBUTEROL 0.5-3(2.5)MG/3ML NEB HHN SCH ×4 (02:15→19:53)
[2017-09-18] MEDS: FENTANYL CITRATE/PF 500 MCG in SODIUM CHLORIDE 0.9% 40 ML IV PRN (04:01)
[2017-09-18 04:42] LABS: BASOPHILS % 0.4 % (0.0-2.0); HEMATOCRIT. 28.2 % (42.0-52.0); HEMOGLOBIN. 9.3 g/dL (14.0-18.0); LYMPHOCYTES % 7.5 % (20.0-50.0); MEAN CORPUSCULAR HEMOGLOBIN 32.7 pg (28.0-32.0); MEAN CORPUSCULAR VOLUME 99.6 fL (80.0-94.0); MEAN PLATELET VOLUME 9.2 fl (7.4-10.4); MONOCYTES % 7.3 % (2.0-8.0); NEUTROPHILS % 79.8 % (40.0-76.0); PLATELET 115 x1000/uL (130-400); RED BLOOD CELL COUNT 2.83 mill/uL (4.7-6.1); RED CELL DISTRIBUTION WIDTH 16.1 % (11.6-14.6)
[2017-09-18] MEDS: METRONIDAZOLE 500 MG PREMIX 100 ML IV SCH ×3 (05:23→22:54)
[2017-09-18] MEDS: PHENYTOIN SODIUM 100MG/2ML VIAL IV SCH ×2 (05:23→13:05)
[2017-09-18 07:57] LABS: BG BASE EXCESS -2.6 mmol/L (-2.0-2.0); BG CARBOXYHEMOGLOBIN 0.3 % (0.5-1.5); BG FRACTION INSPIRED OXYGEN 40; BG HCO3 ACT 23.2 mmol/L (22.0-26.0); BG OXYHEMOGLOBIN 95.7 % (94.0-97.0); BG PCO2 43.9 mmHg (35.0-45.0); BG PRESSURE SUPPORT 6; BG SAMPLE SITE RIGHT RADIAL; BG TIDAL VOLUME(mL) 500 mL; BG VENT MODE VENT - SIMV; BG VENT RATE 8 set
[2017-09-18] MEDS: AMLODIPINE 5MG TABLET PO SCH (08:29)
[2017-09-18] MEDS: DEXAMETHASONE 4MG/ML 1ML VIAL IV SCH ×2 (09:07→21:45)
[2017-09-18] MEDS: LEVETIRACETAM 1000MG PREMIX 100 ML IV SCH (09:08)
[2017-09-18 14:40] LABS: BG BASE EXCESS -1.1 mmol/L (-2.0-2.0); BG CARBOXYHEMOGLOBIN 0.3 % (0.5-1.5); BG DEOXYHEMOGLOBIN 4.9 % (0.0-5.0); BG FRACTION INSPIRED OXYGEN 40; BG HCO3 ACT 24.3 mmol/L (22.0-26.0); BG METHEMOGLOBIN 0.3 % (0.0-1.5); BG OXYGEN SATURATION 95.1 % (92.0-98.5); BG OXYHEMOGLOBIN 94.5 % (94.0-97.0); BG PCO2 43.3 mmHg (35.0-45.0); BG PH 7.367 (7.350-7.450); BG PO2 82.6 mmHg (75.0-100.0); BG PRESSURE SUPPORT 8; BG SAMPLE SITE RIGHT RADIAL; BG TOTAL HEMOGLOBIN 10.8 g/dL (12.0-18.0); BG VENT MODE VENT - CPAP
[2017-09-18] MEDS: RACEPINEPHRINE 2.25% 0.5ML NEB VIAL HHN PRN ×2 (15:36→20:16)
[2017-09-18 16:30] LABS: BG BASE EXCESS 1.7 mmol/L (-2.0-2.0); BG CARBOXYHEMOGLOBIN 0.3 % (0.5-1.5); BG DEOXYHEMOGLOBIN 4.1 % (0.0-5.0); BG FRACTION INSPIRED OXYGEN 50; BG HCO3 ACT 27.1 mmol/L (22.0-26.0); BG METHEMOGLOBIN 0.1 % (0.0-1.5); BG OXYGEN SATURATION 95.9 % (92.0-98.5); BG OXYHEMOGLOBIN 95.5 % (94.0-97.0); BG PCO2 46.3 mmHg (35.0-45.0); BG PH 7.386 (7.350-7.450); BG PO2 86.2 mmHg (75.0-100.0); BG SAMPLE SITE RIGHT RADIAL; BG TOTAL HEMOGLOBIN 10.7 g/dL (12.0-18.0); BG VENT MODE MASK - VENTI
[2017-09-18] MEDS ORDERED: MORPHINE SULFATE 10 MG/ML CPJ IV PRN (20:30)
[2017-09-18] MEDS: CEFEPIME 2,000 MG in DEXTROSE 5% WATER 50 ML IV SCH (20:37)
[2017-09-18] MEDS: LEVETIRACETAM 500MG/5ML CUP PO SCH (21:45)
[2017-09-18] MEDS: PHENYTOIN 100 MG/4 ML UDC NG SCH (22:53)
[2017-09-19] VITALS (79 sets, daily range): BP systolic 97–154; BP diastolic 24–102
[2017-09-19] MEDS: IPRATROPIUM/ALBUTEROL 0.5-3(2.5)MG/3ML NEB HHN SCH ×7 (00:14→23:58)
[2017-09-19] MEDS: BLOOD SUGAR DIAGNOSTIC STRIP TEST SCH ×5 (00:38→23:43)
[2017-09-19] MEDS: INSULIN LISPRO 100 UNITS/ML SUBCUT SCH ×5 (00:41→23:49)
[2017-09-19] MEDS: METRONIDAZOLE 500 MG PREMIX 100 ML IV SCH ×3 (05:00→22:27)
[2017-09-19] MEDS: PHENYTOIN 100 MG/4 ML UDC NG SCH ×3 (05:00→22:26)
[2017-09-19 05:34] LABS: BASOPHILS % 0.4 % (0.0-2.0); EOSINOPHILS % 4.7 % (0.0-5.0); HEMOGLOBIN. 9.8 g/dL (14.0-18.0); LYMPHOCYTES % 12.5 % (20.0-50.0); MEAN CORPUSCULAR HEMOGLOBIN 32.6 pg (28.0-32.0); MEAN CORPUSCULAR VOLUME 100.2 fL (80.0-94.0); MEAN PLATELET VOLUME 9.2 fl (7.4-10.4); MONOCYTES % 8.8 % (2.0-8.0); NEUTROPHILS % 73.6 % (40.0-76.0); PLATELET 129 x1000/uL (130-400); RED BLOOD CELL COUNT 2.99 mill/uL (4.7-6.1); RED CELL DISTRIBUTION WIDTH 16.2 % (11.6-14.6)
[2017-09-19] MEDS: LEVETIRACETAM 500MG/5ML CUP PO SCH ×2 (09:13→21:19)
[2017-09-19] MEDS: AMLODIPINE 5MG TABLET PO SCH (09:14)
[2017-09-19] MEDS: DEXAMETHASONE 4MG/ML 1ML VIAL IV SCH ×2 (09:15→22:27)
[2017-09-19 12:18] LABS: BG DEOXYHEMOGLOBIN 5.5 % (0.0-5.0); BG FRACTION INSPIRED OXYGEN 35; BG HCO3 ACT 26.9 mmol/L (22.0-26.0); BG METHEMOGLOBIN 0.2 % (0.0-1.5); BG OXYGEN SATURATION 94.5 % (92.0-98.5); BG OXYHEMOGLOBIN 94.3 % (94.0-97.0); BG PCO2 48.7 mmHg (35.0-45.0); BG PO2 78.9 mmHg (75.0-100.0); BG SAMPLE SITE RIGHT RADIAL; BG TOTAL HEMOGLOBIN 10.3 g/dL (12.0-18.0); BG VENT MODE MASK - VENTI
[2017-09-19] MEDS: CEFEPIME 2,000 MG in DEXTROSE 5% WATER 50 ML IV SCH (21:19)
[2017-09-20] VITALS (66 sets, daily range): BP systolic 91–186; BP diastolic 45–117
[2017-09-20] MEDS: IPRATROPIUM/ALBUTEROL 0.5-3(2.5)MG/3ML NEB HHN SCH ×5 (04:08→20:44)
[2017-09-20 04:37] LABS: BASOPHILS % 0.5 % (0.0-2.0); EOSINOPHILS % 4.9 % (0.0-5.0); HEMATOCRIT. 29.4 % (42.0-52.0); HEMOGLOBIN. 9.5 g/dL (14.0-18.0); LYMPHOCYTES % 8.2 % (20.0-50.0); MEAN CORPUSCULAR HEMOGLOBIN 32.4 pg (28.0-32.0); MEAN CORPUSCULAR VOLUME 100.5 fL (80.0-94.0); MEAN PLATELET VOLUME 9.3 fl (7.4-10.4); NEUTROPHILS % 79.4 % (40.0-76.0); PLATELET 114 x1000/uL (130-400); RED BLOOD CELL COUNT 2.92 mill/uL (4.7-6.1); RED CELL DISTRIBUTION WIDTH 16.3 % (11.6-14.6)
[2017-09-20 04:53] LABS: PHOSPHORUS 7.1 mg/dL (2.5-4.9)
[2017-09-20] MEDS: METRONIDAZOLE 500 MG PREMIX 100 ML IV SCH ×3 (05:54→22:38)
[2017-09-20] MEDS: PHENYTOIN 100 MG/4 ML UDC NG SCH ×3 (05:54→22:38)
[2017-09-20] MEDS: BLOOD SUGAR DIAGNOSTIC STRIP TEST SCH ×3 (05:55→18:20)
[2017-09-20] MEDS: INSULIN LISPRO 100 UNITS/ML SUBCUT SCH ×3 (05:55→18:21)
[2017-09-20] MEDS: AMLODIPINE 5MG TABLET PO SCH (09:29)
[2017-09-20] MEDS: LEVETIRACETAM 500MG/5ML CUP PO SCH ×2 (09:29→21:11)
[2017-09-20] MEDS: CEFEPIME 2,000 MG in DEXTROSE 5% WATER 50 ML IV SCH (21:11)
[2017-09-21] VITALS (38 sets, daily range): BP systolic 105–196; BP diastolic 44–106
[2017-09-21] MEDS: BLOOD SUGAR DIAGNOSTIC STRIP TEST SCH ×5 (00:02→23:35)
[2017-09-21] MEDS: INSULIN LISPRO 100 UNITS/ML SUBCUT SCH ×5 (00:06→23:44)
[2017-09-21] MEDS: IPRATROPIUM/ALBUTEROL 0.5-3(2.5)MG/3ML NEB HHN SCH ×6 (01:04→19:57)
[2017-09-21 05:42] LABS: BASOPHILS % 0.4 % (0.0-2.0); EOSINOPHILS % 4.5 % (0.0-5.0); HEMOGLOBIN. 9.1 g/dL (14.0-18.0); LYMPHOCYTES % 10.3 % (20.0-50.0); MEAN CORPUSCULAR HEMOGLOBIN 32.4 pg (28.0-32.0); MEAN CORPUSCULAR VOLUME 99.5 fL (80.0-94.0); MEAN PLATELET VOLUME 9.4 fl (7.4-10.4); MONOCYTES % 9.3 % (2.0-8.0); NEUTROPHILS % 75.5 % (40.0-76.0); PLATELET 121 x1000/uL (130-400); RED BLOOD CELL COUNT 2.82 mill/uL (4.7-6.1)
[2017-09-21] MEDS: PHENYTOIN 100 MG/4 ML UDC NG SCH ×3 (05:59→21:23)
[2017-09-21] MEDS: METRONIDAZOLE 500 MG PREMIX 100 ML IV SCH ×3 (06:00→20:55)
[2017-09-21 08:11] LABS: BG BASE EXCESS 1.1 mmol/L (-2.0-2.0); BG CARBOXYHEMOGLOBIN 0.1 % (0.5-1.5); BG DEOXYHEMOGLOBIN 1.9 % (0.0-5.0); BG FRACTION INSPIRED OXYGEN 35; BG HCO3 ACT 26.2 mmol/L (22.0-26.0); BG METHEMOGLOBIN 0.5 % (0.0-1.5); BG OXYGEN SATURATION 98.1 % (92.0-98.5); BG OXYHEMOGLOBIN 97.5 % (94.0-97.0); BG PCO2 44.2 mmHg (35.0-45.0); BG PH 7.391 (7.350-7.450); BG SAMPLE SITE RIGHT RADIAL; BG TOTAL HEMOGLOBIN 8.5 g/dL (12.0-18.0); BG VENT MODE MASK - VENTI
[2017-09-21] MEDS: AMLODIPINE 5MG TABLET PO SCH ×2 (09:18→20:54)
[2017-09-21] MEDS: CLONIDINE 0.1MG TABLET PO PRN (09:18)
[2017-09-21] MEDS: LEVETIRACETAM 500MG/5ML CUP PO SCH ×2 (09:18→20:54)
[2017-09-21] MEDS: LOSARTAN POTASSIUM 50 MG TABLET PO SCH (10:09)
[2017-09-21] MEDS: CEFEPIME 2,000 MG in DEXTROSE 5% WATER 50 ML IV SCH (20:06)
[2017-09-22] VITALS (12 sets, daily range): BP systolic 106–171; BP diastolic 54–80
[2017-09-22] MEDS: IPRATROPIUM/ALBUTEROL 0.5-3(2.5)MG/3ML NEB HHN SCH ×6 (00:35→20:48)
[2017-09-22] MEDS: PHENYTOIN 100 MG/4 ML UDC NG SCH ×3 (04:35→22:00)
[2017-09-22] MEDS: METRONIDAZOLE 500 MG PREMIX 100 ML IV SCH ×3 (04:35→21:53)
[2017-09-22] MEDS: BLOOD SUGAR DIAGNOSTIC STRIP TEST SCH ×4 (06:00→23:58)
[2017-09-22] MEDS: INSULIN LISPRO 100 UNITS/ML SUBCUT SCH ×3 (06:19→18:39)
[2017-09-22 06:43] LABS: BASOPHILS % 0.7 % (0.0-2.0); EOSINOPHILS % 5.3 % (0.0-5.0); HEMATOCRIT. 27.6 % (42.0-52.0); HEMOGLOBIN. 9.2 g/dL (14.0-18.0); LYMPHOCYTES % 11.5 % (20.0-50.0); MEAN CORPUSCULAR HEMOGLOBIN 33.5 pg (28.0-32.0); MEAN CORPUSCULAR VOLUME 100.3 fL (80.0-94.0); MONOCYTES % 8.8 % (2.0-8.0); NEUTROPHILS % 73.7 % (40.0-76.0); PLATELET 108 x1000/uL (130-400); RED BLOOD CELL COUNT 2.75 mill/uL (4.7-6.1); RED CELL DISTRIBUTION WIDTH 15.9 % (11.6-14.6)
[2017-09-22 08:32] LABS: BG BASE EXCESS 0.5 mmol/L (-2.0-2.0); BG CARBOXYHEMOGLOBIN 0.1 % (0.5-1.5); BG DEOXYHEMOGLOBIN 2.5 % (0.0-5.0); BG FRACTION INSPIRED OXYGEN 35; BG HCO3 ACT 26.4 mmol/L (22.0-26.0); BG METHEMOGLOBIN 0.4 % (0.0-1.5); BG OXYGEN SATURATION 97.5 % (92.0-98.5); BG PCO2 48.5 mmHg (35.0-45.0); BG PH 7.353 (7.350-7.450); BG PO2 110.8 mmHg (75.0-100.0); BG SAMPLE SITE RIGHT RADIAL; BG TOTAL HEMOGLOBIN 9.5 g/dL (12.0-18.0); BG VENT MODE MASK - VENTI
[2017-09-22] MEDS: AMLODIPINE 5MG TABLET PO SCH ×2 (09:00→21:00)
[2017-09-22] MEDS: LOSARTAN POTASSIUM 50 MG TABLET PO SCH (09:00)
[2017-09-22] MEDS: LEVETIRACETAM 500MG/5ML CUP PO SCH ×2 (09:00→21:00)
[2017-09-22] MEDS: LEVETIRACETAM 500MG PREMIX 100 ML IV PRN (16:05)
[2017-09-22 17:56] LABS: BG BASE EXCESS 1.6 mmol/L (-2.0-2.0); BG DEOXYHEMOGLOBIN 4.7 % (0.0-5.0); BG METHEMOGLOBIN 0.3 % (0.0-1.5); BG OXYGEN SATURATION 95.3 % (92.0-98.5); BG PCO2 46.3 mmHg (35.0-45.0); BG PH 7.384 (7.350-7.450); BG PO2 83.4 mmHg (75.0-100.0); BG SAMPLE SITE RIGHT RADIAL; BG TOTAL HEMOGLOBIN 10.3 g/dL (12.0-18.0); BG VENT MODE MASK - VENTI
[2017-09-22] MEDS: CEFEPIME 2,000 MG in DEXTROSE 5% WATER 50 ML IV SCH (20:27)
[2017-09-22] MEDS: DEXT 5%/0.45% NACL 1000ML 1,000 ML IV SCH (20:28)
[2017-09-23] VITALS (16 sets, daily range): BP systolic 110–169; BP diastolic 53–91
[2017-09-23] MEDS: INSULIN LISPRO 100 UNITS/ML SUBCUT SCH ×5 (00:23→23:49)
[2017-09-23] MEDS: IPRATROPIUM/ALBUTEROL 0.5-3(2.5)MG/3ML NEB HHN SCH ×6 (00:51→20:58)
[2017-09-23] MEDS: BLOOD SUGAR DIAGNOSTIC STRIP TEST SCH ×4 (06:00→23:34)
[2017-09-23] MEDS: PHENYTOIN 100 MG/4 ML UDC NG SCH ×3 (06:00→21:55)
[2017-09-23 06:43] LABS: BASOPHILS % 0.7 % (0.0-2.0); EOSINOPHILS % 4.2 % (0.0-5.0); HEMATOCRIT. 28.3 % (42.0-52.0); HEMOGLOBIN. 9.4 g/dL (14.0-18.0); LYMPHOCYTES % 14.1 % (20.0-50.0); MEAN CORPUSCULAR HEMOGLOBIN 33.2 pg (28.0-32.0); MEAN CORPUSCULAR VOLUME 99.8 fL (80.0-94.0); MEAN PLATELET VOLUME 9.5 fl (7.4-10.4); MONOCYTES % 9.8 % (2.0-8.0); NEUTROPHILS % 71.2 % (40.0-76.0); PLATELET 110 x1000/uL (130-400); RED BLOOD CELL COUNT 2.84 mill/uL (4.7-6.1); RED CELL DISTRIBUTION WIDTH 16.1 % (11.6-14.6)
[2017-09-23] MEDS: METRONIDAZOLE 500 MG PREMIX 100 ML IV SCH ×3 (07:36→21:13)
[2017-09-23] MEDS: LEVETIRACETAM 500MG/5ML CUP PO SCH ×2 (09:00→21:00)
[2017-09-23] MEDS: AMLODIPINE 5MG TABLET PO SCH ×2 (09:00→21:00)
[2017-09-23] MEDS: LOSARTAN POTASSIUM 50 MG TABLET PO SCH (09:00)
[2017-09-23] MEDS: LEVETIRACETAM 500MG PREMIX 100 ML IV PRN (12:52)
[2017-09-23] MEDS: CEFEPIME 2,000 MG in DEXTROSE 5% WATER 50 ML IV SCH (21:02)
[2017-09-23] MEDS: PANTOPRAZOLE SODIUM 40 MG/VIAL IV SCH (21:12)
[2017-09-24] VITALS (17 sets, daily range): BP systolic 85–180; BP diastolic 56–104
[2017-09-24] MEDS: IPRATROPIUM/ALBUTEROL 0.5-3(2.5)MG/3ML NEB HHN SCH ×7 (00:51→23:59)
[2017-09-24] MEDS: BLOOD SUGAR DIAGNOSTIC STRIP TEST SCH ×4 (06:00→23:32)
[2017-09-24] MEDS: PHENYTOIN 100 MG/4 ML UDC NG SCH ×3 (06:00→21:34)
[2017-09-24] MEDS: METRONIDAZOLE 500 MG PREMIX 100 ML IV SCH ×2 (06:54→14:00)
[2017-09-24] MEDS: INSULIN LISPRO 100 UNITS/ML SUBCUT SCH ×4 (07:03→23:32)
[2017-09-24 07:05] LABS: INR 1.2; PROTHROMBIN TIME 12.5 sec (9.4-11.6)
[2017-09-24 07:36] LABS: HEMATOCRIT. 26.9 % (42.0-52.0); MEAN CORPUSCULAR HEMOGLOBIN 33.4 pg (28.0-32.0); MEAN CORPUSCULAR VOLUME 99.7 fL (80.0-94.0); MEAN PLATELET VOLUME 8.9 fl (7.4-10.4); PLATELET 105 x1000/uL (130-400); RED CELL DISTRIBUTION WIDTH 15.8 % (11.6-14.6)
[2017-09-24] MEDS: PANTOPRAZOLE SODIUM 40 MG/VIAL IV SCH ×2 (08:47→21:34)
[2017-09-24] MEDS: LOSARTAN POTASSIUM 50 MG TABLET PO SCH (08:55)
[2017-09-24] MEDS: LEVETIRACETAM 500MG/5ML CUP PO SCH ×2 (08:56→21:34)
[2017-09-24] MEDS: AMLODIPINE 5MG TABLET PO SCH ×2 (08:56→21:34)
[2017-09-24 12:39] LABS: NUCLEATED RED BLOOD CELLS 1 /100 WBC
[2017-09-24 12:40] LABS: PLATELET ESTIMATE SLIGHTLY DECREASED
[2017-09-24] MEDS ORDERED: GELATIN SPONGE,ABSORBABLE SZ 100 ONE (13:37)
[2017-09-24] MEDS ORDERED: MIDAZOLAM HCL 5 MG/5 ML VIAL ONE (15:38)
[2017-09-24] MEDS ORDERED: FENTANYL CITRATE/PF 50MCG/ML 2ML VIAL ONE (15:38)
[2017-09-24] MEDS ORDERED: MIDAZOLAM HCL 5 MG/5 ML VIAL IV PRN (15:45)
[2017-09-24] MEDS: CEFEPIME 2,000 MG in DEXTROSE 5% WATER 50 ML IV SCH (21:32)
[2017-09-25] VITALS (10 sets, daily range): BP systolic 112–171; BP diastolic 62–85
[2017-09-25] MEDS: METRONIDAZOLE 500 MG PREMIX 100 ML IV SCH ×4 (01:44→21:46)
[2017-09-25] MEDS: DEXT 5%/0.45% NACL 1000ML 1,000 ML IV SCH ×2 (02:17→21:48)
[2017-09-25] MEDS: IPRATROPIUM/ALBUTEROL 0.5-3(2.5)MG/3ML NEB HHN SCH ×5 (04:55→20:22)
[2017-09-25] MEDS: BLOOD SUGAR DIAGNOSTIC STRIP TEST SCH ×4 (05:46→23:15)
[2017-09-25] MEDS: INSULIN LISPRO 100 UNITS/ML SUBCUT SCH ×4 (05:46→23:26)
[2017-09-25] MEDS: PHENYTOIN 100 MG/4 ML UDC NG SCH ×3 (05:46→21:45)
[2017-09-25] MEDS ORDERED: SODIUM CHLORIDE 0.9% 10ML VIAL ONE (08:07)
[2017-09-25] MEDS ORDERED: SIMETHICONE 40 MG/0.6 ML 30ML ONE (08:07)
[2017-09-25] MEDS: PANTOPRAZOLE SODIUM 40 MG/VIAL IV SCH ×2 (08:18→21:44)
[2017-09-25] MEDS: LEVETIRACETAM 500MG/5ML CUP PO SCH ×2 (08:18→21:45)
[2017-09-25] MEDS: LOSARTAN POTASSIUM 50 MG TABLET PO SCH (08:18)
[2017-09-25] MEDS: AMLODIPINE 5MG TABLET PO SCH ×2 (08:18→21:44)
[2017-09-25] MEDS: METOCLOPRAMIDE HCL 10MG/2ML VIAL IV SCH ×3 (12:30→23:15)
[2017-09-25] MEDS: CEFEPIME 2,000 MG in DEXTROSE 5% WATER 50 ML IV SCH (21:43)
[2017-09-26] VITALS (8 sets, daily range): BP systolic 120–178; BP diastolic 66–80
[2017-09-26] MEDS: IPRATROPIUM/ALBUTEROL 0.5-3(2.5)MG/3ML NEB HHN SCH ×6 (00:09→20:36)
[2017-09-26] MEDS: METRONIDAZOLE 500 MG PREMIX 100 ML IV SCH ×2 (05:57→14:15)
[2017-09-26] MEDS: PHENYTOIN 100 MG/4 ML UDC NG SCH ×3 (05:57→21:20)
[2017-09-26] MEDS: METOCLOPRAMIDE HCL 10MG/2ML VIAL IV SCH ×4 (05:57→23:20)
[2017-09-26] MEDS: BLOOD SUGAR DIAGNOSTIC STRIP TEST SCH ×4 (06:11→23:16)
[2017-09-26] MEDS: INSULIN LISPRO 100 UNITS/ML SUBCUT SCH ×4 (06:23→23:21)
[2017-09-26 07:13] LABS: EOSINOPHILS % 4.1 % (0.0-5.0); HEMATOCRIT. 26.4 % (42.0-52.0); HEMOGLOBIN. 8.9 g/dL (14.0-18.0); LYMPHOCYTES % 15.8 % (20.0-50.0); MEAN CORPUSCULAR HEMOGLOBIN 33.6 pg (28.0-32.0); MEAN CORPUSCULAR VOLUME 99.6 fL (80.0-94.0); MEAN PLATELET VOLUME 9.8 fl (7.4-10.4); MONOCYTES % 8.2 % (2.0-8.0); NEUTROPHILS % 70.9 % (40.0-76.0); PLATELET 122 x1000/uL (130-400); RED BLOOD CELL COUNT 2.65 mill/uL (4.7-6.1); RED CELL DISTRIBUTION WIDTH 15.8 % (11.6-14.6)
[2017-09-26] MEDS: AMLODIPINE 5MG TABLET PO SCH ×2 (08:44→20:23)
[2017-09-26] MEDS: LOSARTAN POTASSIUM 50 MG TABLET PO SCH (08:44)
[2017-09-26] MEDS: LEVETIRACETAM 500MG/5ML CUP PO SCH ×2 (08:48→20:22)
[2017-09-26] MEDS: PANTOPRAZOLE SODIUM 40 MG/VIAL IV SCH ×2 (08:48→20:30)
[2017-09-26] MEDS: CLONIDINE 0.1MG TABLET PO PRN (12:46)
[2017-09-26] MEDS: CEFEPIME 2,000 MG in DEXTROSE 5% WATER 50 ML IV SCH (20:22)
[2017-09-26] MEDS: METRONIDAZOLE 500MG TABLET NG SCH (21:20)
[2017-09-26] MEDS: DEXT 5%/0.45% NACL 1000ML 1,000 ML IV SCH (23:31)
[2017-09-27] VITALS (14 sets, daily range): BP systolic 135–174; BP diastolic 69–89
[2017-09-27] MEDS: IPRATROPIUM/ALBUTEROL 0.5-3(2.5)MG/3ML NEB HHN SCH ×6 (00:28→20:50)
[2017-09-27] MEDS: PHENYTOIN 100 MG/4 ML UDC NG SCH ×3 (05:35→20:54)
[2017-09-27] MEDS: METRONIDAZOLE 500MG TABLET NG SCH ×3 (05:35→20:54)
[2017-09-27] MEDS: BLOOD SUGAR DIAGNOSTIC STRIP TEST SCH ×3 (05:35→18:12)
[2017-09-27] MEDS: METOCLOPRAMIDE HCL 10MG/2ML VIAL IV SCH ×3 (05:35→18:15)
[2017-09-27] MEDS: INSULIN LISPRO 100 UNITS/ML SUBCUT SCH ×3 (05:37→18:15)
[2017-09-27 07:47] LABS: BASOPHILS % 1.2 % (0.0-2.0); EOSINOPHILS % 4.8 % (0.0-5.0); HEMATOCRIT. 27.8 % (42.0-52.0); HEMOGLOBIN. 9.2 g/dL (14.0-18.0); LYMPHOCYTES % 14.8 % (20.0-50.0); MEAN CORPUSCULAR HEMOGLOBIN 32.5 pg (28.0-32.0); MEAN CORPUSCULAR VOLUME 98.6 fL (80.0-94.0); MEAN PLATELET VOLUME 10.3 fl (7.4-10.4); MONOCYTES % 6.3 % (2.0-8.0); NEUTROPHILS % 72.9 % (40.0-76.0); PLATELET 130 x1000/uL (130-400); RED BLOOD CELL COUNT 2.82 mill/uL (4.7-6.1); RED CELL DISTRIBUTION WIDTH 15.7 % (11.6-14.6)
[2017-09-27] MEDS: PANTOPRAZOLE SODIUM 40 MG/VIAL IV SCH ×2 (09:12→20:31)
[2017-09-27] MEDS: LOSARTAN POTASSIUM 50 MG TABLET PO SCH (09:12)
[2017-09-27] MEDS: AMLODIPINE 5MG TABLET PO SCH ×2 (09:12→20:31)
[2017-09-27] MEDS: LEVETIRACETAM 500MG/5ML CUP PO SCH ×2 (09:13→20:31)
[2017-09-27 11:34] LABS: BG BASE EXCESS 0.9 mmol/L (-2.0-2.0); BG CARBOXYHEMOGLOBIN 0.3 % (0.5-1.5); BG DEOXYHEMOGLOBIN 5.2 % (0.0-5.0); BG FRACTION INSPIRED OXYGEN 21; BG HCO3 ACT 25.7 mmol/L (22.0-26.0); BG METHEMOGLOBIN 0.3 % (0.0-1.5); BG OXYGEN SATURATION 94.8 % (92.0-98.5); BG OXYHEMOGLOBIN 94.2 % (94.0-97.0); BG PCO2 41.8 mmHg (35.0-45.0); BG PH 7.406 (7.350-7.450); BG PO2 76.7 mmHg (75.0-100.0); BG SAMPLE SITE RIGHT BRACHIAL; BG TOTAL HEMOGLOBIN 9.9 g/dL (12.0-18.0); BG VENT MODE ROOM AIR
[2017-09-27] MEDS: CEFEPIME 2,000 MG in DEXTROSE 5% WATER 50 ML IV SCH (20:31)
[2017-09-28] VITALS (23 sets, daily range): BP systolic 119–190; BP diastolic 61–96
[2017-09-28] MEDS: IPRATROPIUM/ALBUTEROL 0.5-3(2.5)MG/3ML NEB HHN SCH ×6 (00:35→20:42)
[2017-09-28] MEDS: BLOOD SUGAR DIAGNOSTIC STRIP TEST SCH ×4 (00:35→18:00)
[2017-09-28] MEDS: METOCLOPRAMIDE HCL 10MG/2ML VIAL IV SCH ×4 (00:41→17:53)
[2017-09-28] MEDS: INSULIN LISPRO 100 UNITS/ML SUBCUT SCH ×4 (00:41→17:59)
[2017-09-28] MEDS: CLONIDINE 0.1MG TABLET PO PRN ×3 (04:38→18:54)
[2017-09-28] MEDS: PHENYTOIN 100 MG/4 ML UDC NG SCH ×3 (05:08→21:50)
[2017-09-28] MEDS: METRONIDAZOLE 500MG TABLET NG SCH ×3 (05:08→21:51)
[2017-09-28 07:51] LABS: HEMATOCRIT. 28.3 % (42.0-52.0); HEMOGLOBIN. 9.6 g/dL (14.0-18.0); MEAN CORPUSCULAR HEMOGLOBIN 34.8 pg (28.0-32.0); MEAN CORPUSCULAR VOLUME 103.2 fL (80.0-94.0); PLATELET 118 x1000/uL (130-400); RED BLOOD CELL COUNT 2.75 mill/uL (4.7-6.1); RED CELL DISTRIBUTION WIDTH 15.7 % (11.6-14.6)
[2017-09-28] MEDS: PANTOPRAZOLE SODIUM 40 MG/VIAL IV SCH ×2 (08:52→21:50)
[2017-09-28] MEDS: LEVETIRACETAM 500MG/5ML CUP PO SCH ×2 (08:53→21:51)
[2017-09-28] MEDS: LOSARTAN POTASSIUM 50 MG TABLET PO SCH (08:53)
[2017-09-28] MEDS: AMLODIPINE 5MG TABLET PO SCH ×2 (08:54→21:51)
[2017-09-28 09:40] LABS: VITAMIN B12 SERUM 1770 pg/mL (211-911)
[2017-09-28 14:52] LABS: PLATELET ESTIMATE SLIGHTLY DECREASED
[2017-09-28] MEDS: CEFEPIME 2,000 MG in DEXTROSE 5% WATER 50 ML IV SCH (20:29)
[2017-09-29] VITALS (16 sets, daily range): BP systolic 100–185; BP diastolic 44–96
[2017-09-29] MEDS: METOCLOPRAMIDE HCL 10MG/2ML VIAL IV SCH ×4 (00:17→17:40)
[2017-09-29] MEDS: INSULIN LISPRO 100 UNITS/ML SUBCUT SCH ×4 (00:18→18:33)
[2017-09-29] MEDS: BLOOD SUGAR DIAGNOSTIC STRIP TEST SCH ×4 (00:19→18:11)
[2017-09-29] MEDS: IPRATROPIUM/ALBUTEROL 0.5-3(2.5)MG/3ML NEB HHN SCH ×6 (00:47→20:23)
[2017-09-29] MEDS: PHENYTOIN 100 MG/4 ML UDC NG SCH ×3 (05:59→21:37)
[2017-09-29] MEDS: METRONIDAZOLE 500MG TABLET NG SCH ×3 (05:59→21:37)
[2017-09-29] MEDS: CLONIDINE 0.1MG TABLET PO PRN (05:59)
[2017-09-29] MEDS: PANTOPRAZOLE SODIUM 40 MG/VIAL IV SCH ×3 (09:00→21:37)
[2017-09-29] MEDS: AMLODIPINE 5MG TABLET PO SCH ×2 (09:00→21:38)
[2017-09-29] MEDS: LOSARTAN POTASSIUM 50 MG TABLET PO SCH (09:00)
[2017-09-29] MEDS: LEVETIRACETAM 500MG/5ML CUP PO SCH ×3 (09:00→21:37)
[2017-09-29] MEDS ORDERED: PHENYTOIN SODIUM 500 MG in SODIUM CHLORIDE 0.9% 50 ML IV NR (16:00)
[2017-09-29] MEDS ORDERED: INSULIN DETEMIR UD 100 UNITS/ML SYR SUBCUT SCH (22:00)
[2017-09-29] MEDS: CEFEPIME 2,000 MG in DEXTROSE 5% WATER 50 ML IV SCH (22:03)
[2017-09-30] VITALS (14 sets, daily range): BP systolic 129–186; BP diastolic 51–96
[2017-09-30] MEDS: METOCLOPRAMIDE HCL 10MG/2ML VIAL IV SCH ×4 (00:49→17:58)
[2017-09-30] MEDS: INSULIN LISPRO 100 UNITS/ML SUBCUT SCH ×4 (00:50→18:01)
[2017-09-30] MEDS: BLOOD SUGAR DIAGNOSTIC STRIP TEST SCH ×4 (00:51→17:50)
[2017-09-30] MEDS: IPRATROPIUM/ALBUTEROL 0.5-3(2.5)MG/3ML NEB HHN SCH ×5 (04:03→15:22)
[2017-09-30] MEDS: PHENYTOIN 100 MG/4 ML UDC NG SCH (05:33)
[2017-09-30 07:09] LABS: BASOPHILS % 1.5 % (0.0-2.0); EOSINOPHILS % 7.6 % (0.0-5.0); HEMATOCRIT. 28.3 % (42.0-52.0); HEMOGLOBIN. 9.8 g/dL (14.0-18.0); LYMPHOCYTES % 13.1 % (20.0-50.0); MEAN CORPUSCULAR HEMOGLOBIN 34.5 pg (28.0-32.0); MEAN CORPUSCULAR VOLUME 99.4 fL (80.0-94.0); MEAN PLATELET VOLUME 9.5 fl (7.4-10.4); MONOCYTES % 7.7 % (2.0-8.0); NEUTROPHILS % 70.1 % (40.0-76.0); PLATELET 146 x1000/uL (130-400); RED BLOOD CELL COUNT 2.84 mill/uL (4.7-6.1); RED CELL DISTRIBUTION WIDTH 16.2 % (11.6-14.6)
[2017-09-30] MEDS: LOSARTAN POTASSIUM 50 MG TABLET PO SCH (10:08)
[2017-09-30] MEDS: PANTOPRAZOLE SODIUM 40 MG/VIAL IV SCH (10:08)
[2017-09-30] MEDS: AMLODIPINE 5MG TABLET PO SCH (10:08)
[2017-09-30] MEDS: LEVETIRACETAM 500MG/5ML CUP PO SCH (10:08)
[2017-09-30] MEDS: CLONIDINE 0.1MG TABLET PO PRN (11:43)
[2017-09-30] MEDS ORDERED: PHENYTOIN 100 MG/4 ML UDC NG SCH (17:00)
== END 2017-09-30 23:06 | DRG 853 ==
LOC: ER 05:21 → EDBEDREQTM 06:25 → EDBEDREQSVC 06:25 → EDBEDREQ 06:25 → ENRESERV 06:37 → EDBEDREQTM 06:54 → EDBEDREQ 06:54 → MICUNO 06:55 → EDBEDREQ 06:57 → MICUSO 11:30 → 5EST 09-21 17:10
PROVIDERS: ADMIT Internal Medicine Nephrology; ATTEND Internal Medicine Nephrology
PROC: 5A09457 Assistance with Respiratory Ventilation, 24-96 Consecutive Hours, Continuous Positive Airway Pressure (ICD-10-PCS; 2017-09-09)
PROC: 5A1D70Z Performance of Urinary Filtration, Intermittent, Less than 6 Hours Per Day (ICD-10-PCS; 2017-09-09)
PROC: 5A1D70Z Performance of Urinary Filtration, Intermittent, Less than 6 Hours Per Day (ICD-10-PCS; 2017-09-11)
PROC: 5A1955Z Respiratory Ventilation, Greater than 96 Consecutive Hours (ICD-10-PCS; 2017-09-13)
PROC: 0BH17EZ Insertion of Endotracheal Airway into Trachea, Via Natural or Artificial Opening (ICD-10-PCS; 2017-09-13)
PROC: 00U207Z Supplement Dura Mater with Autologous Tissue Substitute, Open Approach (ICD-10-PCS; 2017-09-13)
PROC: 02HV33Z Insertion of Infusion Device into Superior Vena Cava, Percutaneous Approach (ICD-10-PCS; 2017-09-13)
PROC: B548ZZA Ultrasonography of Superior Vena Cava, Guidance (ICD-10-PCS; 2017-09-13)
PROC: 009700Z Drainage of Cerebral Hemisphere with Drainage Device, Open Approach (ICD-10-PCS; principal; 2017-09-13 11:00)
PROC: 5A1D70Z Performance of Urinary Filtration, Intermittent, Less than 6 Hours Per Day (ICD-10-PCS; 2017-09-14)
PROC: 5A1D70Z Performance of Urinary Filtration, Intermittent, Less than 6 Hours Per Day (ICD-10-PCS; 2017-09-16)
PROC: 5A1D70Z Performance of Urinary Filtration, Intermittent, Less than 6 Hours Per Day (ICD-10-PCS; 2017-09-18)
PROC: 5A1D70Z Performance of Urinary Filtration, Intermittent, Less than 6 Hours Per Day (ICD-10-PCS; 2017-09-22)
PROC: 0DH64UZ Insertion of Feeding Device into Stomach, Percutaneous Endoscopic Approach (ICD-10-PCS; 2017-09-24)
PROC: 5A1D70Z Performance of Urinary Filtration, Intermittent, Less than 6 Hours Per Day (ICD-10-PCS; 2017-09-24)
PROC: 5A1D70Z Performance of Urinary Filtration, Intermittent, Less than 6 Hours Per Day (ICD-10-PCS; 2017-09-26)
PROC: 5A1D70Z Performance of Urinary Filtration, Intermittent, Less than 6 Hours Per Day (ICD-10-PCS; 2017-09-29)
PROC: 5A1D70Z Performance of Urinary Filtration, Intermittent, Less than 6 Hours Per Day (ICD-10-PCS; 2017-09-30)
DX: A41.9 Sepsis, unspecified organism (principal); J96.01 Acute respiratory failure with hypoxia; J69.0 Pneumonitis due to inhalation of food and vomit; G93.40 Encephalopathy, unspecified; I13.2 Hypertensive heart and chronic kidney disease with heart failure and with stage 5 chronic kidney disease, or end stage renal disease; N18.6 End stage renal disease; S06.340A Traumatic hemorrhage of right cerebrum without loss of consciousness, initial encounter; I69.354 Hemiplegia and hemiparesis following cerebral infarction affecting left non-dominant side; E87.0 Hyperosmolality and hypernatremia; Z68.41 Body mass index [BMI] 40.0-44.9, adult; E46 Unspecified protein-calorie malnutrition; J84.9 Interstitial pulmonary disease, unspecified; R47.01 Aphasia; W19.XXXA Unspecified fall, initial encounter; Z99.2 Dependence on renal dialysis; E66.01 Morbid (severe) obesity due to excess calories; D53.9 Nutritional anemia, unspecified; D63.8 Anemia in other chronic diseases classified elsewhere; E11.22 Type 2 diabetes mellitus with diabetic chronic kidney disease; E78.1 Pure hyperglyceridemia; E83.39 Other disorders of phosphorus metabolism; E87.5 Hyperkalemia; F17.210 Nicotine dependence, cigarettes, uncomplicated; H70.91 Unspecified mastoiditis, right ear; I50.9 Heart failure, unspecified; R47.1 Dysarthria and anarthria; M24.50 Contracture, unspecified joint; S06.300A Unspecified focal traumatic brain injury without loss of consciousness, initial encounter; I70.0 Atherosclerosis of aorta; J32.3 Chronic sphenoidal sinusitis; R13.12 Dysphagia, oropharyngeal phase; R29.810 Facial weakness; R62.7 Adult failure to thrive; Z79.82 Long term (current) use of aspirin; Z82.3 Family history of stroke; Z91.14 Patient's other noncompliance with medication regimen; Z71.6 Tobacco abuse counseling; Y93.89 Activity, other specified; Y92.89 Other specified places as the place of occurrence of the external cause; Y99.8 Other external cause status
CPT/HCPCS: 36415; 36569; 36600; 70450; 70496; 71010; 71045; 73030; 74000; 76700; 76937; 80048; 80051; 80053; 80076; 80185; 80305; 81001; 82330; 82375; 82550; 82607; 82805; 82962; 83036; 83605; 83690; 83721; 83735; 83880; 83970; 84100; 84443; 84478; 84484; 85025; 85610; 85730; 86850; 86900; 88304; 92610; 93005; 93970; 93971; 94003; 94640; 94660; 94664; 96365; 96367; 96375; 97110; 97162; 97166; 97530; 99152; 99291; A4216; A6261; C1713; C1725; C9113; G0482; J0360; J0610; J0690; J0692; J1100; J1165; J1815; J1953; J2060; J2250; J2270; J2405; J2704; J2765; J3010; J3490; J7030; J7040; J7050; J7060; J7620; J7626; Q9967

== ENCOUNTER 2017-10-22 17:30 | Inpatient (IN) | payer MEDICARE, MEDICAID ==
[~2017-10-22] VITALS: Ht 170.2 cm; Wt 105.4 kg
[2017-10-22] MEDS ORDERED: METOCLOPRAMIDE 10MG/10 ML UDC PO PRN (18:45)
[2017-10-22] MEDS ORDERED: DEXTROSE 50% WATER 50ML SYRINGE IV PRN (18:45)
[2017-10-22] MEDS ORDERED: LORAZEPAM 2MG/ML CPJ IV PRN (18:45)
[2017-10-22] MEDS ORDERED: CLONIDINE 0.1MG TABLET GT PRN (18:45)
[2017-10-22 20:00] VITALS: BP_SYST 123; BP_SYST 142; BP_DIAS 68; BP_DIAS 71
[2017-10-22] MEDS: BLOOD SUGAR DIAGNOSTIC STRIP TEST SCH (21:05)
[2017-10-22] MEDS: LEVETIRACETAM 500MG/5ML CUP GT SCH (21:53)
[2017-10-22] MEDS: AMLODIPINE 5MG TABLET GT SCH (21:53)
[2017-10-22] MEDS: INSULIN GLARGINE UD 100 UNITS/ML SYR SUBCUT SCH (22:31)
[2017-10-22] MEDS: INSULIN LISPRO 100 UNITS/ML SUBCUT SCH (22:31)
[2017-10-23] MEDS: BLOOD SUGAR DIAGNOSTIC STRIP TEST SCH ×4 (05:41→21:56)
[2017-10-23] MEDS: INSULIN LISPRO 100 UNITS/ML SUBCUT SCH ×4 (05:42→21:00)
[2017-10-23 07:06] LABS: BASOPHILS % 1.3 % (0.0-2.0); EOSINOPHILS % 8.7 % (0.0-5.0); HEMATOCRIT. 26.6 % (42.0-52.0); HEMOGLOBIN. 9.1 g/dL (14.0-18.0); LYMPHOCYTES % 14.6 % (20.0-50.0); MEAN CORPUSCULAR HEMOGLOBIN 33.4 pg (28.0-32.0); MEAN CORPUSCULAR VOLUME 97.4 fL (80.0-94.0); MEAN PLATELET VOLUME 8.1 fl (7.4-10.4); MONOCYTES % 7.6 % (2.0-8.0); NEUTROPHILS % 67.8 % (40.0-76.0); PLATELET 182 x1000/uL (130-400); RED BLOOD CELL COUNT 2.73 mill/uL (4.7-6.1); RED CELL DISTRIBUTION WIDTH 16.1 % (11.6-14.6)
[2017-10-23 07:27] LABS: PREALBUMIN 32.1 mg/dL (20.0-40.0)
[2017-10-23 08:00] VITALS: BP 130/79
[2017-10-23] MEDS: LEVETIRACETAM 500MG/5ML CUP GT SCH ×2 (11:44→22:03)
[2017-10-23] MEDS: LOSARTAN POTASSIUM 50 MG TABLET GT SCH (11:46)
[2017-10-23] MEDS: AMLODIPINE 5MG TABLET GT SCH ×2 (11:46→22:03)
[2017-10-23] MEDS: INSULIN GLARGINE UD 100 UNITS/ML SYR SUBCUT SCH ×2 (11:54→22:04)
[2017-10-23] MEDS: LACTULOSE 20G/30ML UDC PO SCH ×2 (17:35→22:02)
[2017-10-23] MEDS: DOCUSATE SODIUM 100MG CAPSULE PO SCH (17:45)
[2017-10-23 19:52] LABS: AMMONIA < 25 uMol/L (<32)
[2017-10-23 20:00] VITALS: BP 114/63
[2017-10-23] MEDS: POLYETHYLENE GLYCOL 3350 (17GM) 1 DOSE PACK PO SCH (22:02)
[2017-10-23] MEDS: ACETAMINOPHEN 500MG TABLET PO PRN (23:14)
[2017-10-24] MEDS ORDERED: GLYB5TAB7 PO (03:28)
[2017-10-24] MEDS ORDERED: HYDR-4134 PO (03:28)
[2017-10-24] MEDS ORDERED: CINA30 PO (03:28)
[2017-10-24] MEDS ORDERED: LISI40TA4 PO (03:28)
[2017-10-24] MEDS ORDERED: CALC667C PO (03:28)
[2017-10-24] MEDS ORDERED: ASPI-1159 PO (03:28)
[2017-10-24] MEDS ORDERED: SUCR500T PO (03:28)
[2017-10-24] MEDS: BLOOD SUGAR DIAGNOSTIC STRIP TEST SCH ×4 (05:51→21:16)
[2017-10-24] MEDS: INSULIN LISPRO 100 UNITS/ML SUBCUT SCH ×4 (06:47→21:17)
[2017-10-24 07:33] LABS: BASOPHILS % 0.9 % (0.0-2.0); EOSINOPHILS % 7.3 % (0.0-5.0); HEMATOCRIT. 27.2 % (42.0-52.0); HEMOGLOBIN. 9.3 g/dL (14.0-18.0); LYMPHOCYTES % 13.3 % (20.0-50.0); MEAN CORPUSCULAR HEMOGLOBIN 33.3 pg (28.0-32.0); MEAN CORPUSCULAR VOLUME 97.1 fL (80.0-94.0); MEAN PLATELET VOLUME 8.2 fl (7.4-10.4); MONOCYTES % 8.2 % (2.0-8.0); NEUTROPHILS % 70.3 % (40.0-76.0); PLATELET 171 x1000/uL (130-400)
[2017-10-24] MEDS: TRAMADOL 50MG TABLET PO PRN (07:45)
[2017-10-24 07:47] LABS: CHLORIDE 98 mEq/L (98-107)
[2017-10-24 08:12] LABS: TOTAL IRON BINDING CAPACITY 167 ug/dL (250-450)
[2017-10-24 08:47] VITALS: BP 129/90
[2017-10-24] MEDS: LOSARTAN POTASSIUM 50 MG TABLET GT SCH (08:55)
[2017-10-24] MEDS: LEVETIRACETAM 500MG/5ML CUP GT SCH ×2 (08:56→21:13)
[2017-10-24] MEDS: AMLODIPINE 5MG TABLET GT SCH ×2 (08:56→21:15)
[2017-10-24] MEDS: DOCUSATE SODIUM 100MG CAPSULE PO SCH ×2 (08:56→17:40)
[2017-10-24] MEDS: LACTULOSE 20G/30ML UDC PO SCH ×5 (08:56→21:00)
[2017-10-24] MEDS: INSULIN GLARGINE UD 100 UNITS/ML SYR SUBCUT SCH ×2 (11:07→21:17)
[2017-10-24 12:45] LABS: FOLIC ACID (FOLATE) SERUM 8.7 ng/mL (>5.38)
[2017-10-24] MEDS: SEVELAMER CARBONATE 800 MG TABLET PO SCH (17:40)
[2017-10-24 20:00] VITALS: BP 124/64
[2017-10-24] MEDS: POLYETHYLENE GLYCOL 3350 (17GM) 1 DOSE PACK PO SCH (21:00)
[2017-10-24] MEDS: ACETAMINOPHEN 500MG TABLET PO PRN (23:13)
[2017-10-25] MEDS: BLOOD SUGAR DIAGNOSTIC STRIP TEST SCH ×4 (06:34→21:00)
[2017-10-25] MEDS: INSULIN LISPRO 100 UNITS/ML SUBCUT SCH ×4 (06:43→21:00)
[2017-10-25] MEDS: LEVETIRACETAM 500MG/5ML CUP GT SCH ×2 (08:52→22:20)
[2017-10-25] MEDS: LOSARTAN POTASSIUM 50 MG TABLET GT SCH (08:52)
[2017-10-25] MEDS: DOCUSATE SODIUM 100MG CAPSULE PO SCH ×2 (08:52→17:32)
[2017-10-25] MEDS: AMLODIPINE 5MG TABLET GT SCH ×2 (08:52→22:20)
[2017-10-25] MEDS: SEVELAMER CARBONATE 800 MG TABLET PO SCH ×3 (08:52→17:31)
[2017-10-25] MEDS: TRAMADOL 50MG TABLET PO PRN (08:59)
[2017-10-25 09:00] VITALS: BP 132/75
[2017-10-25] MEDS: LACTULOSE 20G/30ML UDC PO SCH ×3 (09:00→17:00)
[2017-10-25 09:20] LABS: EOSINOPHILS % 7.8 % (0.0-5.0); HEMOGLOBIN. 9.7 g/dL (14.0-18.0); LYMPHOCYTES % 15.8 % (20.0-50.0); MEAN CORPUSCULAR HEMOGLOBIN 32.7 pg (28.0-32.0); MEAN CORPUSCULAR VOLUME 97.6 fL (80.0-94.0); MEAN PLATELET VOLUME 8.2 fl (7.4-10.4); MONOCYTES % 5.8 % (2.0-8.0); NEUTROPHILS % 69.6 % (40.0-76.0); PLATELET 173 x1000/uL (130-400); RED BLOOD CELL COUNT 2.97 mill/uL (4.7-6.1); RED CELL DISTRIBUTION WIDTH 15.8 % (11.6-14.6)
[2017-10-25] MEDS ORDERED: METO-539 PO (09:56)
[2017-10-25] MEDS: INSULIN GLARGINE UD 100 UNITS/ML SYR SUBCUT SCH ×2 (11:25→22:28)
[2017-10-25] MEDS: ACETAMINOPHEN 500MG TABLET PO PRN (18:17)
[2017-10-25 19:54] VITALS: BP 128/52
[2017-10-25] MEDS: POLYETHYLENE GLYCOL 3350 (17GM) 1 DOSE PACK PO SCH (21:00)
[2017-10-26] MEDS: METOCLOPRAMIDE 10MG/10 ML UDC GT PRN (01:53)
[2017-10-26] MEDS: BLOOD SUGAR DIAGNOSTIC STRIP TEST SCH ×4 (06:02→21:00)
[2017-10-26] MEDS: INSULIN LISPRO 100 UNITS/ML SUBCUT SCH ×4 (06:13→21:00)
[2017-10-26 06:18] LABS: EOSINOPHILS % 7.3 % (0.0-5.0); HEMATOCRIT. 28.1 % (42.0-52.0); HEMOGLOBIN. 9.6 g/dL (14.0-18.0); MEAN CORPUSCULAR HEMOGLOBIN 33.1 pg (28.0-32.0); MEAN CORPUSCULAR VOLUME 97.6 fL (80.0-94.0); MEAN PLATELET VOLUME 7.9 fl (7.4-10.4); MONOCYTES % 6.6 % (2.0-8.0); NEUTROPHILS % 72.1 % (40.0-76.0); PLATELET 173 x1000/uL (130-400); RED BLOOD CELL COUNT 2.88 mill/uL (4.7-6.1); RED CELL DISTRIBUTION WIDTH 16.1 % (11.6-14.6)
[2017-10-26 07:44] LABS: PHOSPHORUS 7.4 mg/dL (2.5-4.9)
[2017-10-26 08:23] VITALS: BP 153/72
[2017-10-26] MEDS: DOCUSATE SODIUM 100MG CAPSULE PO SCH ×2 (10:48→16:20)
[2017-10-26] MEDS: CINACALCET HCL 30MG TABLET PO SCH (10:49)
[2017-10-26] MEDS: AMLODIPINE 5MG TABLET GT SCH ×2 (10:49→22:02)
[2017-10-26] MEDS: LOSARTAN POTASSIUM 50 MG TABLET GT SCH (10:50)
[2017-10-26] MEDS: LEVETIRACETAM 500MG/5ML CUP GT SCH ×2 (10:50→22:01)
[2017-10-26] MEDS: INSULIN GLARGINE UD 100 UNITS/ML SYR SUBCUT SCH ×2 (10:57→22:12)
[2017-10-26] MEDS: SEVELAMER CARBONATE 800 MG TABLET PO SCH ×2 (12:24→16:20)
[2017-10-26 20:00] VITALS: BP 125/60
[2017-10-26] MEDS: POLYETHYLENE GLYCOL 3350 (17GM) 1 DOSE PACK PO SCH (22:02)
[2017-10-27] MEDS: BLOOD SUGAR DIAGNOSTIC STRIP TEST SCH ×4 (06:44→21:46)
[2017-10-27 08:00] VITALS: BP 130/82
[2017-10-27] MEDS: LOSARTAN POTASSIUM 50 MG TABLET GT SCH (08:50)
[2017-10-27] MEDS: FOLIC ACID/VITAMIN B COMP W-C TABLET PO SCH (08:50)
[2017-10-27] MEDS: AMLODIPINE 5MG TABLET GT SCH ×2 (08:50→21:48)
[2017-10-27] MEDS: SEVELAMER CARBONATE 800 MG TABLET PO SCH ×3 (08:50→18:10)
[2017-10-27] MEDS: LEVETIRACETAM 500MG/5ML CUP GT SCH ×2 (08:50→21:46)
[2017-10-27] MEDS: DOCUSATE SODIUM 100MG CAPSULE PO SCH ×2 (08:50→18:10)
[2017-10-27] MEDS: CINACALCET HCL 30MG TABLET PO SCH (08:50)
[2017-10-27] MEDS: INSULIN LISPRO 100 UNITS/ML SUBCUT SCH ×4 (09:00→21:00)
[2017-10-27] MEDS: INSULIN GLARGINE UD 100 UNITS/ML SYR SUBCUT SCH ×2 (11:14→22:03)
[2017-10-27] MEDS: ACETAMINOPHEN 500MG TABLET PO PRN (11:21)
[2017-10-27 20:00] VITALS: BP 117/60
[2017-10-27] MEDS: POLYETHYLENE GLYCOL 3350 (17GM) 1 DOSE PACK PO SCH (21:00)
[2017-10-27] MEDS: MUPIROCIN 2% OINT 22GM NS SCH (21:46)
[2017-10-27] MEDS: TRAMADOL 50MG TABLET PO PRN (23:51)
[2017-10-28] MEDS: INSULIN LISPRO 100 UNITS/ML SUBCUT SCH ×4 (06:31→21:00)
[2017-10-28] MEDS: BLOOD SUGAR DIAGNOSTIC STRIP TEST SCH ×4 (06:31→21:23)
[2017-10-28 08:19] VITALS: BP 142/75
[2017-10-28] MEDS: LEVETIRACETAM 500MG/5ML CUP GT SCH ×2 (09:30→21:22)
[2017-10-28] MEDS: DOCUSATE SODIUM 100MG CAPSULE PO SCH ×2 (09:31→18:52)
[2017-10-28] MEDS: CINACALCET HCL 30MG TABLET PO SCH (09:31)
[2017-10-28] MEDS: FOLIC ACID/VITAMIN B COMP W-C TABLET PO SCH (09:31)
[2017-10-28] MEDS: SEVELAMER CARBONATE 800 MG TABLET PO SCH ×3 (09:31→18:52)
[2017-10-28] MEDS: LOSARTAN POTASSIUM 50 MG TABLET GT SCH (09:32)
[2017-10-28] MEDS: MUPIROCIN 2% OINT 22GM NS SCH ×2 (09:32→21:24)
[2017-10-28] MEDS: AMLODIPINE 5MG TABLET GT SCH ×2 (09:32→21:22)
[2017-10-28] MEDS: INSULIN GLARGINE UD 100 UNITS/ML SYR SUBCUT SCH ×2 (09:49→21:28)
[2017-10-28 13:11] LABS: 25-HYDROXY VITAMIN D3 16 ng/mL (.)
[2017-10-28] MEDS: DIPHENHYDRAMINE 50MG/ML VIAL IV PRN (16:24)
[2017-10-28] MEDS: HYDROCODONE/ACETAMINOPHEN 5/325MG TABLET PO PRN (18:52)
[2017-10-28] MEDS ORDERED: GABAPENTIN 100MG CAPSULE PO SCH (21:00)
[2017-10-28] MEDS: POLYETHYLENE GLYCOL 3350 (17GM) 1 DOSE PACK PO SCH (21:22)
[2017-10-28] MEDS: METOCLOPRAMIDE 10MG/10 ML UDC GT PRN (23:01)
[2017-10-28 23:23] VITALS: BP 128/70
[2017-10-29] MEDS: ACETAMINOPHEN 500MG TABLET PO PRN (04:02)
[2017-10-29] MEDS: INSULIN LISPRO 100 UNITS/ML SUBCUT SCH ×4 (07:24→20:45)
[2017-10-29] MEDS: BLOOD SUGAR DIAGNOSTIC STRIP TEST SCH ×4 (07:24→20:45)
[2017-10-29 08:00] VITALS: BP 135/78
[2017-10-29] MEDS: DOCUSATE SODIUM 100MG CAPSULE PO SCH ×2 (09:35→17:54)
[2017-10-29] MEDS: LEVETIRACETAM 500MG/5ML CUP GT SCH ×2 (09:35→20:44)
[2017-10-29] MEDS: CINACALCET HCL 30MG TABLET PO SCH (09:35)
[2017-10-29] MEDS: AMLODIPINE 5MG TABLET GT SCH ×2 (09:35→20:44)
[2017-10-29] MEDS: LOSARTAN POTASSIUM 50 MG TABLET GT SCH (09:35)
[2017-10-29] MEDS: FOLIC ACID/VITAMIN B COMP W-C TABLET PO SCH (09:35)
[2017-10-29] MEDS: SEVELAMER CARBONATE 800 MG TABLET PO SCH ×3 (09:35→17:55)
[2017-10-29] MEDS: INSULIN GLARGINE UD 100 UNITS/ML SYR SUBCUT SCH ×2 (09:57→22:12)
[2017-10-29] MEDS: MUPIROCIN 2% OINT 22GM NS SCH ×2 (09:58→20:44)
[2017-10-29 10:00] VITALS: BP 117/64
[2017-10-29] MEDS: HYDROCODONE/ACETAMINOPHEN 5/325MG TABLET PO PRN ×2 (10:02→22:10)
[2017-10-29 20:00] VITALS: BP 137/71
[2017-10-29] MEDS: POLYETHYLENE GLYCOL 3350 (17GM) 1 DOSE PACK PO SCH (20:45)
[2017-10-29 20:48] VITALS: BP 137/71
[2017-10-29] MEDS ORDERED: GABAPENTIN 300MG CAPSULE PO SCH (21:00)
[2017-10-30] MEDS: BLOOD SUGAR DIAGNOSTIC STRIP TEST SCH ×4 (05:42→21:59)
[2017-10-30] MEDS: INSULIN LISPRO 100 UNITS/ML SUBCUT SCH ×4 (05:42→22:03)
[2017-10-30 06:42] LABS: BASOPHILS % 1.1 % (0.0-2.0); EOSINOPHILS % 5.6 % (0.0-5.0); HEMATOCRIT. 28.4 % (42.0-52.0); HEMOGLOBIN. 9.7 g/dL (14.0-18.0); LYMPHOCYTES % 17.7 % (20.0-50.0); MEAN CORPUSCULAR HEMOGLOBIN 33.3 pg (28.0-32.0); MEAN CORPUSCULAR VOLUME 97.6 fL (80.0-94.0); MEAN PLATELET VOLUME 8.3 fl (7.4-10.4); MONOCYTES % 6.8 % (2.0-8.0); NEUTROPHILS % 68.8 % (40.0-76.0); PLATELET 192 x1000/uL (130-400); RED BLOOD CELL COUNT 2.91 mill/uL (4.7-6.1); RED CELL DISTRIBUTION WIDTH 16.1 % (11.6-14.6)
[2017-10-30] MEDS: ACETAMINOPHEN 500MG TABLET PO PRN (06:45)
[2017-10-30 08:18] VITALS: BP 118/62
[2017-10-30] MEDS: FOLIC ACID/VITAMIN B COMP W-C TABLET PO SCH (08:50)
[2017-10-30] MEDS: CINACALCET HCL 30MG TABLET PO SCH (08:50)
[2017-10-30] MEDS: LEVETIRACETAM 500MG/5ML CUP GT SCH ×2 (08:50→21:58)
[2017-10-30] MEDS: DOCUSATE SODIUM 100MG CAPSULE PO SCH ×2 (08:51→17:46)
[2017-10-30] MEDS: SEVELAMER CARBONATE 800 MG TABLET PO SCH ×4 (08:51→17:46)
[2017-10-30] MEDS: MUPIROCIN 2% OINT 22GM NS SCH ×2 (08:52→22:01)
[2017-10-30] MEDS: LOSARTAN POTASSIUM 50 MG TABLET GT SCH (09:00)
[2017-10-30] MEDS: AMLODIPINE 5MG TABLET GT SCH ×2 (09:00→21:58)
[2017-10-30] MEDS: INSULIN GLARGINE UD 100 UNITS/ML SYR SUBCUT SCH ×2 (11:09→22:02)
[2017-10-30] MEDS: METOCLOPRAMIDE 10MG/10 ML UDC GT PRN (17:47)
[2017-10-30 18:55] VITALS: BP 133/70
[2017-10-30] MEDS: HYDROCODONE/ACETAMINOPHEN 5/325MG TABLET PO PRN (19:03)
[2017-10-30] MEDS: GABAPENTIN 300MG CAPSULE PO SCH ×2 (20:09→21:57)
[2017-10-30] MEDS: SIMETHICONE 80MG TABLET CHEW PO PRN ×2 (20:10→20:29)
[2017-10-30] MEDS: POLYETHYLENE GLYCOL 3350 (17GM) 1 DOSE PACK PO SCH (21:00)
[2017-10-31] MEDS: BLOOD SUGAR DIAGNOSTIC STRIP TEST SCH ×4 (05:51→21:12)
[2017-10-31] MEDS: ACETAMINOPHEN 500MG TABLET PO PRN (05:52)
[2017-10-31] MEDS: INSULIN LISPRO 100 UNITS/ML SUBCUT SCH ×4 (06:06→21:00)
[2017-10-31 06:21] LABS: BASOPHILS % 0.8 % (0.0-2.0); EOSINOPHILS % 5.2 % (0.0-5.0); HEMATOCRIT. 30.3 % (42.0-52.0); HEMOGLOBIN. 10.1 g/dL (14.0-18.0); LYMPHOCYTES % 16.7 % (20.0-50.0); MEAN CORPUSCULAR HEMOGLOBIN 32.9 pg (28.0-32.0); MEAN CORPUSCULAR VOLUME 98.3 fL (80.0-94.0); MEAN PLATELET VOLUME 8.1 fl (7.4-10.4); MONOCYTES % 6.3 % (2.0-8.0); PLATELET 199 x1000/uL (130-400); RED BLOOD CELL COUNT 3.08 mill/uL (4.7-6.1); RED CELL DISTRIBUTION WIDTH 16.4 % (11.6-14.6)
[2017-10-31 08:00] VITALS: BP 125/57
[2017-10-31] MEDS: LOSARTAN POTASSIUM 50 MG TABLET GT SCH (09:00)
[2017-10-31] MEDS: AMLODIPINE 5MG TABLET GT SCH (09:00)
[2017-10-31] MEDS: DOCUSATE SODIUM 100MG CAPSULE PO SCH ×2 (09:52→16:52)
[2017-10-31] MEDS: FOLIC ACID/VITAMIN B COMP W-C TABLET PO SCH (09:53)
[2017-10-31] MEDS: SEVELAMER CARBONATE 800 MG TABLET PO SCH ×3 (09:54→16:55)
[2017-10-31] MEDS: CINACALCET HCL 30MG TABLET PO SCH (09:55)
[2017-10-31] MEDS: LEVETIRACETAM 500MG/5ML CUP GT SCH ×2 (09:56→21:07)
[2017-10-31] MEDS: MUPIROCIN 2% OINT 22GM NS SCH (10:00)
[2017-10-31] MEDS: INSULIN GLARGINE UD 100 UNITS/ML SYR SUBCUT SCH ×2 (10:09→21:12)
[2017-10-31] MEDS: DIPHENHYDRAMINE 50MG/ML VIAL IV PRN (10:40)
[2017-10-31] MEDS: HYDROCODONE/ACETAMINOPHEN 5/325MG TABLET PO PRN ×2 (15:48→21:08)
[2017-10-31 20:00] VITALS: BP 104/62
[2017-10-31] MEDS: POLYETHYLENE GLYCOL 3350 (17GM) 1 DOSE PACK PO SCH (21:00)
[2017-10-31] MEDS: GABAPENTIN 400MG CAPSULE PO SCH (21:08)
[2017-11-01] MEDS: MUPIROCIN 2% OINT 22GM NS SCH ×3 (01:53→20:52)
[2017-11-01 05:59] LABS: BASOPHILS % 0.9 % (0.0-2.0); EOSINOPHILS % 4.3 % (0.0-5.0); HEMATOCRIT. 26.2 % (42.0-52.0); HEMOGLOBIN. 8.7 g/dL (14.0-18.0); LYMPHOCYTES % 20.3 % (20.0-50.0); MEAN CORPUSCULAR HEMOGLOBIN 32.6 pg (28.0-32.0); MEAN CORPUSCULAR VOLUME 98.3 fL (80.0-94.0); NEUTROPHILS % 66.5 % (40.0-76.0); PLATELET 184 x1000/uL (130-400); RED BLOOD CELL COUNT 2.67 mill/uL (4.7-6.1); RED CELL DISTRIBUTION WIDTH 15.9 % (11.6-14.6)
[2017-11-01] MEDS: INSULIN LISPRO 100 UNITS/ML SUBCUT SCH ×4 (06:17→20:53)
[2017-11-01] MEDS: BLOOD SUGAR DIAGNOSTIC STRIP TEST SCH ×4 (06:17→20:53)
[2017-11-01] MEDS: TRAMADOL 50MG TABLET PO PRN ×2 (06:40→13:07)
[2017-11-01 08:00] VITALS: BP 118/65
[2017-11-01] MEDS: LOSARTAN POTASSIUM 50 MG TABLET GT SCH (08:35)
[2017-11-01] MEDS: FOLIC ACID/VITAMIN B COMP W-C TABLET PO SCH (08:41)
[2017-11-01] MEDS: DOCUSATE SODIUM 100MG CAPSULE PO SCH ×2 (08:41→17:20)
[2017-11-01] MEDS: CINACALCET HCL 30MG TABLET PO SCH (08:41)
[2017-11-01] MEDS: LEVETIRACETAM 500MG/5ML CUP GT SCH ×2 (08:42→20:52)
[2017-11-01] MEDS: SEVELAMER CARBONATE 800 MG TABLET PO SCH ×3 (08:42→17:20)
[2017-11-01] MEDS: INSULIN GLARGINE UD 100 UNITS/ML SYR SUBCUT SCH ×2 (11:07→21:31)
[2017-11-01] MEDS: HYDROCODONE/ACETAMINOPHEN 5/325MG TABLET PO PRN (17:21)
[2017-11-01 20:00] VITALS: BP 139/74
[2017-11-01] MEDS: POLYETHYLENE GLYCOL 3350 (17GM) 1 DOSE PACK PO SCH (20:52)
[2017-11-01] MEDS: GABAPENTIN 400MG CAPSULE PO SCH (20:53)
[2017-11-02] MEDS: TRAMADOL 50MG TABLET PO PRN ×2 (03:55→17:24)
[2017-11-02] MEDS: BLOOD SUGAR DIAGNOSTIC STRIP TEST SCH ×4 (05:55→21:52)
[2017-11-02] MEDS: INSULIN LISPRO 100 UNITS/ML SUBCUT SCH ×4 (05:55→21:00)
[2017-11-02 07:03] LABS: BASOPHILS % 1.1 % (0.0-2.0); HEMOGLOBIN. 8.7 g/dL (14.0-18.0); LYMPHOCYTES % 19.3 % (20.0-50.0); MEAN CORPUSCULAR HEMOGLOBIN 33.4 pg (28.0-32.0); MEAN PLATELET VOLUME 8.2 fl (7.4-10.4); MONOCYTES % 7.9 % (2.0-8.0); NEUTROPHILS % 65.7 % (40.0-76.0); PLATELET 198 x1000/uL (130-400); RED BLOOD CELL COUNT 2.62 mill/uL (4.7-6.1)
[2017-11-02 08:00] VITALS: BP 123/64
[2017-11-02] MEDS: SEVELAMER CARBONATE 800 MG TABLET PO SCH ×3 (08:08→17:23)
[2017-11-02] MEDS: CINACALCET HCL 30MG TABLET PO SCH (08:08)
[2017-11-02] MEDS: DOCUSATE SODIUM 100MG CAPSULE PO SCH ×2 (08:09→17:23)
[2017-11-02] MEDS: FOLIC ACID/VITAMIN B COMP W-C TABLET PO SCH (08:09)
[2017-11-02] MEDS: LEVETIRACETAM 500MG/5ML CUP GT SCH ×2 (08:13→21:52)
[2017-11-02] MEDS: HYDROCODONE/ACETAMINOPHEN 5/325MG TABLET PO PRN (10:15)
[2017-11-02] MEDS: METOCLOPRAMIDE 10MG/10 ML UDC GT PRN (10:15)
[2017-11-02] MEDS: INSULIN GLARGINE UD 100 UNITS/ML SYR SUBCUT SCH ×2 (10:25→22:00)
[2017-11-02 20:00] VITALS: BP 126/62
[2017-11-02] MEDS: GABAPENTIN 400MG CAPSULE PO SCH (21:51)
[2017-11-02] MEDS: POLYETHYLENE GLYCOL 3350 (17GM) 1 DOSE PACK PO SCH (21:52)
[2017-11-03] MEDS: ACETAMINOPHEN 500MG TABLET PO PRN (01:36)
[2017-11-03] MEDS: BLOOD SUGAR DIAGNOSTIC STRIP TEST SCH ×4 (05:52→21:31)
[2017-11-03] MEDS: INSULIN LISPRO 100 UNITS/ML SUBCUT SCH ×4 (05:54→21:00)
[2017-11-03 08:11] VITALS: BP 127/68
[2017-11-03] MEDS: SEVELAMER CARBONATE 800 MG TABLET PO SCH ×3 (08:48→17:55)
[2017-11-03] MEDS: CINACALCET HCL 30MG TABLET PO SCH (08:48)
[2017-11-03] MEDS: FOLIC ACID/VITAMIN B COMP W-C TABLET PO SCH (08:48)
[2017-11-03] MEDS: LEVETIRACETAM 500MG/5ML CUP GT SCH ×2 (08:49→21:30)
[2017-11-03] MEDS: DOCUSATE SODIUM 100MG CAPSULE PO SCH ×2 (08:49→17:55)
[2017-11-03] MEDS: TRAMADOL 50MG TABLET PO PRN ×2 (08:54→18:00)
[2017-11-03] MEDS: INSULIN GLARGINE UD 100 UNITS/ML SYR SUBCUT SCH ×2 (11:06→21:52)
[2017-11-03] MEDS: DIPHENHYDRAMINE 50MG/ML VIAL IV PRN (18:38)
[2017-11-03 20:00] VITALS: BP 129/69
[2017-11-03] MEDS: POLYETHYLENE GLYCOL 3350 (17GM) 1 DOSE PACK PO SCH (21:30)
[2017-11-03] MEDS: GABAPENTIN 400MG CAPSULE PO SCH (21:30)
[2017-11-03] MEDS: EPOETIN ALFA 10000UNITS/ML VIAL SUBCUT SCH (21:34)
[2017-11-04 03:59] VITALS: BP 128/68
[2017-11-04] MEDS: BLOOD SUGAR DIAGNOSTIC STRIP TEST SCH ×4 (06:40→21:11)
[2017-11-04 07:11] LABS: BASOPHILS % 0.6 % (0.0-2.0); EOSINOPHILS % 4.6 % (0.0-5.0); HEMATOCRIT. 26.1 % (42.0-52.0); HEMOGLOBIN. 8.6 g/dL (14.0-18.0); LYMPHOCYTES % 13.1 % (20.0-50.0); MEAN CORPUSCULAR HEMOGLOBIN 32.3 pg (28.0-32.0); MEAN CORPUSCULAR VOLUME 98.4 fL (80.0-94.0); MONOCYTES % 5.1 % (2.0-8.0); NEUTROPHILS % 76.6 % (40.0-76.0); PLATELET 212 x1000/uL (130-400); RED BLOOD CELL COUNT 2.66 mill/uL (4.7-6.1); RED CELL DISTRIBUTION WIDTH 16.4 % (11.6-14.6)
[2017-11-04 08:09] VITALS: BP 129/63
[2017-11-04] MEDS: INSULIN LISPRO 100 UNITS/ML SUBCUT SCH ×4 (09:00→21:00)
[2017-11-04] MEDS: FOLIC ACID/VITAMIN B COMP W-C TABLET PO SCH (09:10)
[2017-11-04] MEDS: DOCUSATE SODIUM 100MG CAPSULE PO SCH ×2 (09:11→16:36)
[2017-11-04] MEDS: CINACALCET HCL 30MG TABLET PO SCH (09:11)
[2017-11-04] MEDS: LEVETIRACETAM 500MG/5ML CUP GT SCH ×2 (09:15→21:08)
[2017-11-04] MEDS: SEVELAMER CARBONATE 800 MG TABLET PO SCH ×3 (09:16→16:36)
[2017-11-04] MEDS: INSULIN GLARGINE UD 100 UNITS/ML SYR SUBCUT SCH ×2 (09:23→21:26)
[2017-11-04] MEDS: TRAMADOL 50MG TABLET PO PRN ×2 (09:34→19:06)
[2017-11-04 20:00] VITALS: BP 130/80
[2017-11-04] MEDS: POLYETHYLENE GLYCOL 3350 (17GM) 1 DOSE PACK PO SCH (21:10)
[2017-11-04] MEDS: GABAPENTIN 400MG CAPSULE PO SCH (21:11)
[2017-11-05] MEDS: INSULIN LISPRO 100 UNITS/ML SUBCUT SCH ×4 (06:03→21:00)
[2017-11-05] MEDS: BLOOD SUGAR DIAGNOSTIC STRIP TEST SCH ×4 (06:03→21:13)
[2017-11-05 06:50] LABS: BASOPHILS % 1.1 % (0.0-2.0); EOSINOPHILS % 5.9 % (0.0-5.0); HEMATOCRIT. 26.9 % (42.0-52.0); HEMOGLOBIN. 9.1 g/dL (14.0-18.0); LYMPHOCYTES % 20.4 % (20.0-50.0); MEAN CORPUSCULAR HEMOGLOBIN 33.6 pg (28.0-32.0); MEAN CORPUSCULAR VOLUME 99.3 fL (80.0-94.0); MEAN PLATELET VOLUME 7.8 fl (7.4-10.4); MONOCYTES % 5.6 % (2.0-8.0); PLATELET 210 x1000/uL (130-400); RED BLOOD CELL COUNT 2.71 mill/uL (4.7-6.1); RED CELL DISTRIBUTION WIDTH 15.9 % (11.6-14.6)
[2017-11-05 08:00] VITALS: BP 129/70
[2017-11-05] MEDS: DOCUSATE SODIUM 100MG CAPSULE PO SCH ×2 (09:38→16:56)
[2017-11-05] MEDS: SEVELAMER CARBONATE 800 MG TABLET PO SCH ×3 (09:38→16:23)
[2017-11-05] MEDS: FOLIC ACID/VITAMIN B COMP W-C TABLET PO SCH (09:39)
[2017-11-05] MEDS: CINACALCET HCL 30MG TABLET PO SCH (09:40)
[2017-11-05] MEDS: INSULIN GLARGINE UD 100 UNITS/ML SYR SUBCUT SCH ×2 (09:48→21:19)
[2017-11-05] MEDS: LEVETIRACETAM 500MG/5ML CUP GT SCH (10:18)
[2017-11-05] MEDS: ACETAMINOPHEN 500MG TABLET PO PRN ×2 (10:33→21:21)
[2017-11-05] MEDS: TRAMADOL 50MG TABLET PO PRN (16:22)
[2017-11-05] MEDS: CLOTRIMAZOLE/BETAMETHASONE 1/0.05% CREAM 15GM TOP SCH (18:10)
[2017-11-05 20:00] VITALS: BP 160/73
[2017-11-05] MEDS: POLYETHYLENE GLYCOL 3350 (17GM) 1 DOSE PACK PO SCH (21:00)
[2017-11-05] MEDS: DIPHENHYDRAMINE 50MG/ML VIAL IV PRN (22:22)
[2017-11-06] MEDS: LEVETIRACETAM 500MG/5ML CUP GT SCH ×3 (01:26→21:16)
[2017-11-06] MEDS: TRAMADOL 50MG TABLET PO PRN ×3 (01:28→21:25)
[2017-11-06] MEDS: EPOETIN ALFA 10000UNITS/ML VIAL SUBCUT SCH (01:28)
[2017-11-06] MEDS: GABAPENTIN 400MG CAPSULE PO SCH ×2 (01:28→21:16)
[2017-11-06] MEDS: BLOOD SUGAR DIAGNOSTIC STRIP TEST SCH ×4 (06:38→21:35)
[2017-11-06] MEDS: INSULIN LISPRO 100 UNITS/ML SUBCUT SCH ×4 (06:38→21:00)
[2017-11-06 08:00] VITALS: BP 132/79
[2017-11-06] MEDS: SEVELAMER CARBONATE 800 MG TABLET PO SCH ×3 (08:34→17:37)
[2017-11-06] MEDS: CLOTRIMAZOLE/BETAMETHASONE 1/0.05% CREAM 15GM TOP SCH ×2 (08:34→21:16)
[2017-11-06] MEDS: CINACALCET HCL 30MG TABLET PO SCH (08:35)
[2017-11-06] MEDS: FOLIC ACID/VITAMIN B COMP W-C TABLET PO SCH (08:35)
[2017-11-06] MEDS: DOCUSATE SODIUM 100MG CAPSULE PO SCH ×2 (08:36→17:37)
[2017-11-06] MEDS: INSULIN GLARGINE UD 100 UNITS/ML SYR SUBCUT SCH ×2 (11:28→21:24)
[2017-11-06 20:00] VITALS: BP 140/67
[2017-11-06] MEDS: POLYETHYLENE GLYCOL 3350 (17GM) 1 DOSE PACK PO SCH (21:00)
[2017-11-07] MEDS: TRAMADOL 50MG TABLET PO PRN ×3 (03:59→19:57)
[2017-11-07] MEDS: BLOOD SUGAR DIAGNOSTIC STRIP TEST SCH ×4 (06:14→21:23)
[2017-11-07] MEDS: INSULIN LISPRO 100 UNITS/ML SUBCUT SCH ×4 (06:52→21:00)
[2017-11-07 06:59] LABS: BASOPHILS % 0.9 % (0.0-2.0); EOSINOPHILS % 3.9 % (0.0-5.0); HEMATOCRIT. 25.9 % (42.0-52.0); HEMOGLOBIN. 8.6 g/dL (14.0-18.0); LYMPHOCYTES % 21.7 % (20.0-50.0); MEAN CORPUSCULAR HEMOGLOBIN 33.5 pg (28.0-32.0); MEAN CORPUSCULAR VOLUME 100.9 fL (80.0-94.0); MEAN PLATELET VOLUME 7.7 fl (7.4-10.4); MONOCYTES % 7.8 % (2.0-8.0); NEUTROPHILS % 65.7 % (40.0-76.0); PLATELET 217 x1000/uL (130-400); RED BLOOD CELL COUNT 2.57 mill/uL (4.7-6.1)
[2017-11-07] MEDS: FOLIC ACID/VITAMIN B COMP W-C TABLET PO SCH (08:26)
[2017-11-07] MEDS: DOCUSATE SODIUM 100MG CAPSULE PO SCH ×2 (08:26→17:35)
[2017-11-07] MEDS: LEVETIRACETAM 500MG/5ML CUP GT SCH (08:27)
[2017-11-07] MEDS: SEVELAMER CARBONATE 800 MG TABLET PO SCH ×3 (08:27→17:35)
[2017-11-07] MEDS: CINACALCET HCL 30MG TABLET PO SCH (08:27)
[2017-11-07 08:32] VITALS: BP 123/74
[2017-11-07] MEDS: CLOTRIMAZOLE/BETAMETHASONE 1/0.05% CREAM 15GM TOP SCH (11:24)
[2017-11-07] MEDS: INSULIN GLARGINE UD 100 UNITS/ML SYR SUBCUT SCH (11:28)
[2017-11-07 20:00] VITALS: BP 121/76
[2017-11-07] MEDS: POLYETHYLENE GLYCOL 3350 (17GM) 1 DOSE PACK PO SCH (21:00)
[2017-11-07] MEDS ORDERED: CLONIDINE 0.1MG TABLET PO PRN (21:26)
[2017-11-07] MEDS ORDERED: METOCLOPRAMIDE 10MG/10 ML UDC PO PRN (21:27)
[2017-11-07] MEDS ORDERED: LEVETIRACETAM 500MG/5ML CUP PO SCH (21:27)
[2017-11-07] MEDS: DIPHENHYDRAMINE 50MG/ML VIAL IV PRN (22:35)
[2017-11-08] MEDS: CLOTRIMAZOLE/BETAMETHASONE 1/0.05% CREAM 15GM TOP SCH ×3 (01:19→21:18)
[2017-11-08] MEDS: LEVETIRACETAM 500MG/5ML CUP PO SCH ×3 (01:20→21:17)
[2017-11-08] MEDS: EPOETIN ALFA 10000UNITS/ML VIAL SUBCUT SCH (01:20)
[2017-11-08] MEDS: GABAPENTIN 400MG CAPSULE PO SCH (01:20)
[2017-11-08] MEDS: INSULIN GLARGINE UD 100 UNITS/ML SYR SUBCUT SCH ×3 (01:21→21:20)
[2017-11-08] MEDS: ACETAMINOPHEN 500MG TABLET PO PRN ×2 (01:58→21:18)
[2017-11-08] MEDS: BLOOD SUGAR DIAGNOSTIC STRIP TEST SCH ×4 (07:06→21:18)
[2017-11-08] MEDS: INSULIN LISPRO 100 UNITS/ML SUBCUT SCH ×4 (07:06→21:00)
[2017-11-08 08:05] VITALS: BP 124/74
[2017-11-08] MEDS: FOLIC ACID/VITAMIN B COMP W-C TABLET PO SCH (08:05)
[2017-11-08] MEDS: DOCUSATE SODIUM 100MG CAPSULE PO SCH ×2 (08:10→17:37)
[2017-11-08] MEDS: TRAMADOL 50MG TABLET PO PRN ×2 (08:11→17:37)
[2017-11-08] MEDS: CINACALCET HCL 30MG TABLET PO SCH (08:11)
[2017-11-08] MEDS: SEVELAMER CARBONATE 800 MG TABLET PO SCH ×3 (08:12→17:38)
[2017-11-08 20:00] VITALS: BP 143/66
[2017-11-08] MEDS: POLYETHYLENE GLYCOL 3350 (17GM) 1 DOSE PACK PO SCH (21:00)
[2017-11-08] MEDS: GABAPENTIN 300MG CAPSULE PO SCH (21:17)
[2017-11-09] MEDS: BLOOD SUGAR DIAGNOSTIC STRIP TEST SCH ×4 (06:43→21:50)
[2017-11-09] MEDS: INSULIN LISPRO 100 UNITS/ML SUBCUT SCH ×4 (06:43→21:00)
[2017-11-09 08:00] VITALS: BP 137/78
[2017-11-09] MEDS: FOLIC ACID/VITAMIN B COMP W-C TABLET PO SCH (08:26)
[2017-11-09] MEDS: DOCUSATE SODIUM 100MG CAPSULE PO SCH ×2 (08:26→17:00)
[2017-11-09] MEDS: CINACALCET HCL 30MG TABLET PO SCH (08:29)
[2017-11-09] MEDS: TRAMADOL 50MG TABLET PO PRN (08:30)
[2017-11-09] MEDS: SEVELAMER CARBONATE 800 MG TABLET PO SCH ×3 (08:30→17:00)
[2017-11-09] MEDS: LEVETIRACETAM 500MG/5ML CUP PO SCH ×2 (08:31→21:49)
[2017-11-09] MEDS: CLOTRIMAZOLE/BETAMETHASONE 1/0.05% CREAM 15GM TOP SCH ×2 (08:35→21:51)
[2017-11-09] MEDS: INSULIN GLARGINE UD 100 UNITS/ML SYR SUBCUT SCH ×2 (11:00→21:51)
[2017-11-09] MEDS: ACETAMINOPHEN 500MG TABLET PO PRN (15:16)
[2017-11-09] MEDS ORDERED: OXYCODONE HCL 5MG TABLET PO PRN (16:15)
[2017-11-09 20:00] VITALS: BP 129/70
[2017-11-09] MEDS: POLYETHYLENE GLYCOL 3350 (17GM) 1 DOSE PACK PO SCH (21:00)
[2017-11-09] MEDS: GABAPENTIN 300MG CAPSULE PO SCH (21:49)
[2017-11-10 07:06] LABS: BASOPHILS % 0.9 % (0.0-2.0); EOSINOPHILS % 3.2 % (0.0-5.0); HEMOGLOBIN. 9.2 g/dL (14.0-18.0); LYMPHOCYTES % 15.4 % (20.0-50.0); MEAN CORPUSCULAR HEMOGLOBIN 33.6 pg (28.0-32.0); MEAN CORPUSCULAR VOLUME 98.6 fL (80.0-94.0); MEAN PLATELET VOLUME 7.7 fl (7.4-10.4); MONOCYTES % 8.8 % (2.0-8.0); NEUTROPHILS % 71.7 % (40.0-76.0); PLATELET 195 x1000/uL (130-400); RED BLOOD CELL COUNT 2.74 mill/uL (4.7-6.1); RED CELL DISTRIBUTION WIDTH 16.3 % (11.6-14.6)
[2017-11-10 07:20] LABS: CHLORIDE 98 mEq/L (98-107)
[2017-11-10] MEDS: BLOOD SUGAR DIAGNOSTIC STRIP TEST SCH ×4 (07:20→21:00)
[2017-11-10] MEDS: INSULIN LISPRO 100 UNITS/ML SUBCUT SCH ×4 (07:21→21:00)
[2017-11-10 08:00] VITALS: BP 136/65
[2017-11-10] MEDS: SEVELAMER CARBONATE 800 MG TABLET PO SCH ×3 (08:26→16:42)
[2017-11-10] MEDS: FOLIC ACID/VITAMIN B COMP W-C TABLET PO SCH (08:27)
[2017-11-10] MEDS: LEVETIRACETAM 500MG/5ML CUP PO SCH (08:27)
[2017-11-10] MEDS: DOCUSATE SODIUM 100MG CAPSULE PO SCH ×2 (08:27→16:42)
[2017-11-10] MEDS: CINACALCET HCL 30MG TABLET PO SCH (08:27)
[2017-11-10] MEDS: CLOTRIMAZOLE/BETAMETHASONE 1/0.05% CREAM 15GM TOP SCH (08:29)
[2017-11-10] MEDS: INSULIN GLARGINE UD 100 UNITS/ML SYR SUBCUT SCH (11:25)
[2017-11-10 20:00] VITALS: BP 160/80
[2017-11-10] MEDS: DIPHENHYDRAMINE 50MG/ML VIAL IV PRN (20:49)
[2017-11-10] MEDS ORDERED: EPOETIN ALFA 10000UNITS/ML VIAL SUBCUT SCH (21:00)
[2017-11-10] MEDS: POLYETHYLENE GLYCOL 3350 (17GM) 1 DOSE PACK PO SCH (21:00)
[2017-11-11] VITALS: BP 129/70
[2017-11-11] MEDS: GABAPENTIN 300MG CAPSULE PO SCH (00:20)
[2017-11-11] MEDS: LEVETIRACETAM 500MG/5ML CUP PO SCH ×2 (00:20→09:24)
[2017-11-11] MEDS: CLOTRIMAZOLE/BETAMETHASONE 1/0.05% CREAM 15GM TOP SCH ×2 (00:22→09:00)
[2017-11-11] MEDS: INSULIN GLARGINE UD 100 UNITS/ML SYR SUBCUT SCH ×2 (00:30→11:27)
[2017-11-11] MEDS: BLOOD SUGAR DIAGNOSTIC STRIP TEST SCH ×2 (07:14→11:15)
[2017-11-11] MEDS: INSULIN LISPRO 100 UNITS/ML SUBCUT SCH ×2 (07:14→13:00)
[2017-11-11 08:37] VITALS: BP 138/64
[2017-11-11] MEDS: DOCUSATE SODIUM 100MG CAPSULE PO SCH (09:24)
[2017-11-11] MEDS: CINACALCET HCL 30MG TABLET PO SCH (09:24)
[2017-11-11] MEDS: FOLIC ACID/VITAMIN B COMP W-C TABLET PO SCH (09:24)
[2017-11-11] MEDS: SEVELAMER CARBONATE 800 MG TABLET PO SCH ×2 (09:24→13:48)
[2017-11-11 15:03] VITALS: BP 138/64
[2017-11-11] MEDS: ACETAMINOPHEN 500MG TABLET PO PRN (15:25)
== END 2017-11-11 16:00 | DRG 82 ==
PROVIDERS: ADMIT Physical Medicine & Rehabilitation Spinal Cord Injury Medicine; ATTEND Family Medicine Adult Medicine
PROC: 5A1D70Z Performance of Urinary Filtration, Intermittent, Less than 6 Hours Per Day (ICD-10-PCS; principal; 2017-10-30)
PROC: 5A1D70Z Performance of Urinary Filtration, Intermittent, Less than 6 Hours Per Day (ICD-10-PCS; 2017-11-03)
PROC: 5A1D70Z Performance of Urinary Filtration, Intermittent, Less than 6 Hours Per Day (ICD-10-PCS; 2017-11-10)
DX: S06.349A Traumatic hemorrhage of right cerebrum with loss of consciousness of unspecified duration, initial encounter (principal); J96.00 Acute respiratory failure, unspecified whether with hypoxia or hypercapnia; E44.0 Moderate protein-calorie malnutrition; E11.22 Type 2 diabetes mellitus with diabetic chronic kidney disease; E83.39 Other disorders of phosphorus metabolism; R13.10 Dysphagia, unspecified; N18.6 End stage renal disease; I12.0 Hypertensive chronic kidney disease with stage 5 chronic kidney disease or end stage renal disease; N25.81 Secondary hyperparathyroidism of renal origin; R47.01 Aphasia; I69.354 Hemiplegia and hemiparesis following cerebral infarction affecting left non-dominant side; W18.39XA Other fall on same level, initial encounter; D63.8 Anemia in other chronic diseases classified elsewhere; R47.02 Dysphasia; R62.7 Adult failure to thrive; R56.9 Unspecified convulsions; L60.3 Nail dystrophy; F41.9 Anxiety disorder, unspecified; E66.9 Obesity, unspecified; F32.9 Major depressive disorder, single episode, unspecified; F06.8 Other specified mental disorders due to known physiological condition; E55.9 Vitamin D deficiency, unspecified; D63.1 Anemia in chronic kidney disease; D53.9 Nutritional anemia, unspecified; B35.3 Tinea pedis; B35.1 Tinea unguium; R47.1 Dysarthria and anarthria; Z98.2 Presence of cerebrospinal fluid drainage device; Z99.2 Dependence on renal dialysis; Z93.1 Gastrostomy status; Z91.81 History of falling; Z87.01 Personal history of pneumonia (recurrent); Z82.3 Family history of stroke; Z72.0 Tobacco use; Z91.19 Patient's noncompliance with other medical treatment and regimen; Z79.899 Other long term (current) drug therapy; Z68.36 Body mass index [BMI] 36.0-36.9, adult
CPT/HCPCS: 36415; 70450; 70544; 70551; 73090; 73100; 73130; 80048; 80051; 80053; 82140; 82270; 82306; 82542; 82607; 82728; 82746; 82962; 83036; 83540; 83550; 83735; 83970; 84100; 84134; 84443; 84630; 85025; 92523; 92610; 93005; 93306; 93970; 97110; 97112; 97116; 97127; 97150; 97163; 97167; 97530; 97535; A6261; G0515; J0885; J1200; J1815; J7030; J8597

== ENCOUNTER 2017-11-12 20:30 | Inpatient (IN) | payer MEDICARE, MEDICAID ==
[~2017-11-12] VITALS: Ht 172.7 cm; Wt 97.5 kg
[2017-11-12] MEDS ORDERED: SODIUM CHLORIDE 0.9% 1,000 ML IV ONE (20:52)
[2017-11-12] MEDS ORDERED: ASPIRIN 81MG TABLET PO ONE (21:00)
[2017-11-12 21:29] LABS: EOSINOPHILS % 2.1 % (0.0-5.0); HEMATOCRIT. 31.9 % (42.0-52.0); HEMOGLOBIN. 10.7 g/dL (14.0-18.0); LYMPHOCYTES % 17.2 % (20.0-50.0); MEAN CORPUSCULAR HEMOGLOBIN 33.2 pg (28.0-32.0); MEAN CORPUSCULAR VOLUME 99.1 fL (80.0-94.0); MEAN PLATELET VOLUME 7.3 fl (7.4-10.4); MONOCYTES % 7.7 % (2.0-8.0); PLATELET 187 x1000/uL (130-400); RED BLOOD CELL COUNT 3.22 mill/uL (4.7-6.1)
[2017-11-12 21:38] LABS: D-DIMER 0.73 mg/L FEU (<0.50); INR 1.1; PROTHROMBIN TIME 11.2 sec (9.4-11.6)
[2017-11-12 21:50] LABS: CHLORIDE 95 mEq/L (98-107); ETHANOL BLOOD < 10 mg/dL; TROPONIN I < 0.02 ng/mL (0.00-0.04)
[2017-11-13] MEDS ORDERED: HYDROCODONE/ACETAMINOPHEN 10/325MG TABLET PO ONE (01:00)
[2017-11-13 02:30] VITALS: BP 145/72
[2017-11-13] MEDS ORDERED: CALC667T5 PO (03:01)
[2017-11-13] MEDS ORDERED: ASPI-1158 PO (03:01)
[2017-11-13] MEDS ORDERED: LISI40TA4 PO (03:01)
[2017-11-13] MEDS ORDERED: AMLO5TAB4 PO (03:01)
[2017-11-13] MEDS ORDERED: TRAZ-129 PO (03:01)
[2017-11-13] MEDS ORDERED: GLYB5TAB7 PO (03:01)
[2017-11-13] MEDS ORDERED: CINA60 PO (03:01)
[2017-11-13 04:00] VITALS: BP 153/60
[2017-11-13] MEDS ORDERED: DEXTROSE 50% WATER 50ML SYRINGE IV PRN (04:30)
[2017-11-13] MEDS: BLOOD SUGAR DIAGNOSTIC STRIP TEST SCH ×4 (06:27→21:49)
[2017-11-13] MEDS: INSULIN LISPRO 100 UNITS/ML SUBCUT SCH ×4 (06:27→21:00)
[2017-11-13 08:00] VITALS: BP 130/65
[2017-11-13] MEDS: ASPIRIN 81MG EC TABLET PO SCH (08:41)
[2017-11-13] MEDS: GLYBURIDE 5MG TABLET PO SCH ×2 (08:41→17:00)
[2017-11-13] MEDS: CINACALCET HCL 60MG TABLET PO SCH (08:41)
[2017-11-13] MEDS: CALCIUM ACETATE 667MG CAPSULE PO SCH ×3 (08:41→18:42)
[2017-11-13] MEDS: AMLODIPINE 5MG TABLET PO SCH (08:41)
[2017-11-13] MEDS: LISINOPRIL 40MG TABLET PO SCH ×2 (08:42→21:49)
[2017-11-13] MEDS: ENOXAPARIN 30MG/0.3ML SYR SUBCUT SCH (08:42)
[2017-11-13] MEDS: MORPHINE SULFATE 4 MG/ML CPJ (NOT FOR IM USE) IV PRN ×2 (08:48→13:00)
[2017-11-13] MEDS ORDERED: CALCIUM ACETATE 1334 MG PO SCH (09:00)
[2017-11-13 12:00] VITALS: BP 126/71
[2017-11-13] MEDS: ONDANSETRON HCL 4MG/2ML VIAL IV PRN ×2 (12:54→22:06)
[2017-11-13 13:14] LABS: TROPONIN I 0.14 ng/mL (0.00-0.04)
[2017-11-13 16:00] VITALS: BP 108/50
[2017-11-13] MEDS: LIDOCAINE 5% PATCH TOP SCH (16:43)
[2017-11-13 20:00] VITALS: BP 95/53
[2017-11-13] MEDS: ACETAMINOPHEN WITH CODEINE 300/60MG TABLET PO PRN (21:57)
[2017-11-14] VITALS: BP 108/53
[2017-11-14 04:00] VITALS: BP 96/48
[2017-11-14] MEDS: ACETAMINOPHEN WITH CODEINE 300/60MG TABLET PO PRN (04:04)
[2017-11-14 06:48] LABS: BASOPHILS % 0.7 % (0.0-2.0); EOSINOPHILS % 2.6 % (0.0-5.0); HEMATOCRIT. 27.9 % (42.0-52.0); HEMOGLOBIN. 9.4 g/dL (14.0-18.0); LYMPHOCYTES % 26.2 % (20.0-50.0); MEAN CORPUSCULAR HEMOGLOBIN 33.1 pg (28.0-32.0); MEAN CORPUSCULAR VOLUME 98.4 fL (80.0-94.0); MEAN PLATELET VOLUME 7.8 fl (7.4-10.4); MONOCYTES % 9.3 % (2.0-8.0); NEUTROPHILS % 61.2 % (40.0-76.0); PLATELET 170 x1000/uL (130-400); RED BLOOD CELL COUNT 2.84 mill/uL (4.7-6.1); RED CELL DISTRIBUTION WIDTH 16.4 % (11.6-14.6)
[2017-11-14] MEDS: INSULIN LISPRO 100 UNITS/ML SUBCUT SCH ×4 (06:53→22:08)
[2017-11-14] MEDS: BLOOD SUGAR DIAGNOSTIC STRIP TEST SCH ×4 (06:53→22:08)
[2017-11-14 08:00] VITALS: BP 92/42
[2017-11-14] MEDS: CALCIUM ACETATE 667MG CAPSULE PO SCH ×3 (08:41→17:28)
[2017-11-14] MEDS: LIDOCAINE 5% PATCH TOP SCH (09:00)
[2017-11-14] MEDS: ASPIRIN 81MG EC TABLET PO SCH (09:00)
[2017-11-14] MEDS: ENOXAPARIN 30MG/0.3ML SYR SUBCUT SCH (09:00)
[2017-11-14] MEDS: AMLODIPINE 5MG TABLET PO SCH (09:00)
[2017-11-14] MEDS: GLYBURIDE 5MG TABLET PO SCH ×2 (09:00→17:00)
[2017-11-14] MEDS: LISINOPRIL 40MG TABLET PO SCH ×2 (09:00→22:06)
[2017-11-14] MEDS: CINACALCET HCL 60MG TABLET PO SCH (09:00)
[2017-11-14 12:00] VITALS: BP 122/72
[2017-11-14 16:00] VITALS: BP_SYST 84; BP_SYST 85; BP_DIAS 45
[2017-11-14] MEDS ORDERED: SODIUM CHLORIDE 0.9% 500 ML IV ONE (17:45)
[2017-11-14 20:00] VITALS: BP 102/45
[2017-11-14] MEDS: TRAMADOL 50MG TABLET PO PRN (22:11)
[2017-11-15] VITALS: BP 104/57
[2017-11-15] MEDS: ACETAMINOPHEN WITH CODEINE 300/60MG TABLET PO PRN ×3 (00:49→15:35)
[2017-11-15 07:02] LABS: BASOPHILS % 0.8 % (0.0-2.0); EOSINOPHILS % 3.2 % (0.0-5.0); HEMATOCRIT. 30.9 % (42.0-52.0); HEMOGLOBIN. 10.1 g/dL (14.0-18.0); MEAN CORPUSCULAR HEMOGLOBIN 32.6 pg (28.0-32.0); MEAN CORPUSCULAR VOLUME 99.4 fL (80.0-94.0); MEAN PLATELET VOLUME 7.3 fl (7.4-10.4); MONOCYTES % 7.2 % (2.0-8.0); NEUTROPHILS % 61.8 % (40.0-76.0); PLATELET 175 x1000/uL (130-400); RED CELL DISTRIBUTION WIDTH 16.3 % (11.6-14.6)
[2017-11-15] MEDS: BLOOD SUGAR DIAGNOSTIC STRIP TEST SCH ×4 (07:40→21:04)
[2017-11-15] MEDS: INSULIN LISPRO 100 UNITS/ML SUBCUT SCH ×4 (07:50→21:00)
[2017-11-15 08:00] VITALS: BP 104/63
[2017-11-15] MEDS: CALCIUM ACETATE 667MG CAPSULE PO SCH ×3 (08:14→18:29)
[2017-11-15] MEDS: AMLODIPINE 5MG TABLET PO SCH (09:00)
[2017-11-15] MEDS: LISINOPRIL 40MG TABLET PO SCH ×2 (09:00→21:00)
[2017-11-15] MEDS: ENOXAPARIN 30MG/0.3ML SYR SUBCUT SCH (09:56)
[2017-11-15] MEDS: GLYBURIDE 5MG TABLET PO SCH ×2 (09:57→17:10)
[2017-11-15] MEDS: LIDOCAINE 5% PATCH TOP SCH (09:57)
[2017-11-15] MEDS: ASPIRIN 81MG EC TABLET PO SCH (09:57)
[2017-11-15] MEDS: CINACALCET HCL 60MG TABLET PO SCH (10:06)
[2017-11-15 12:00] VITALS: BP 102/74
[2017-11-15 16:00] VITALS: BP 101/59
[2017-11-15 20:30] VITALS: BP 100/57
[2017-11-15] MEDS ORDERED: METOCLOPRAMIDE HCL 10MG/2ML VIAL IV ONE (23:15)
[2017-11-15] MEDS ORDERED: METOCLOPRAMIDE HCL 10MG TABLET PO NR (23:26)
[2017-11-16 00:03] VITALS: BP 97/68
[2017-11-16] MEDS: ONDANSETRON HCL 4MG/2ML VIAL IV PRN ×2 (00:13→09:15)
[2017-11-16] MEDS: ACETAMINOPHEN WITH CODEINE 300/60MG TABLET PO PRN ×2 (00:14→21:43)
[2017-11-16 04:00] VITALS: BP 117/57
[2017-11-16 05:34] LABS: BASOPHILS % 0.8 % (0.0-2.0); EOSINOPHILS % 3.2 % (0.0-5.0); HEMATOCRIT. 31.4 % (42.0-52.0); HEMOGLOBIN. 10.6 g/dL (14.0-18.0); LYMPHOCYTES % 25.5 % (20.0-50.0); MEAN CORPUSCULAR HEMOGLOBIN 33.5 pg (28.0-32.0); MEAN CORPUSCULAR VOLUME 99.2 fL (80.0-94.0); MEAN PLATELET VOLUME 7.6 fl (7.4-10.4); NEUTROPHILS % 64.5 % (40.0-76.0); PLATELET 189 x1000/uL (130-400); RED BLOOD CELL COUNT 3.17 mill/uL (4.7-6.1); RED CELL DISTRIBUTION WIDTH 16.1 % (11.6-14.6)
[2017-11-16] MEDS: BLOOD SUGAR DIAGNOSTIC STRIP TEST SCH ×4 (05:47→20:53)
[2017-11-16] MEDS: INSULIN LISPRO 100 UNITS/ML SUBCUT SCH ×4 (07:41→20:53)
[2017-11-16 08:00] VITALS: BP 105/66
[2017-11-16] MEDS: CALCIUM ACETATE 667MG CAPSULE PO SCH ×3 (08:10→18:10)
[2017-11-16] MEDS: AMLODIPINE 5MG TABLET PO SCH (09:00)
[2017-11-16] MEDS: LIDOCAINE 5% PATCH TOP SCH (09:00)
[2017-11-16] MEDS: CINACALCET HCL 60MG TABLET PO SCH (09:00)
[2017-11-16] MEDS: ASPIRIN 81MG EC TABLET PO SCH (09:00)
[2017-11-16] MEDS: LISINOPRIL 40MG TABLET PO SCH ×2 (09:00→20:27)
[2017-11-16] MEDS: GLYBURIDE 5MG TABLET PO SCH ×2 (09:00→17:22)
[2017-11-16] MEDS: ENOXAPARIN 30MG/0.3ML SYR SUBCUT SCH (09:15)
[2017-11-16 12:00] VITALS: BP 99/60
[2017-11-16] MEDS ORDERED: LACTULOSE 20G/30ML UDC PO SCH (12:45)
[2017-11-16] MEDS ORDERED: IPRATROPIUM/ALBUTEROL 0.5-3(2.5)MG/3ML NEB HHN PRN (14:00)
[2017-11-16 16:30] VITALS: BP 105/56
[2017-11-16] MEDS: METOCLOPRAMIDE HCL 5MG TABLET PO SCH (16:36)
[2017-11-16 20:00] VITALS: BP 110/53
[2017-11-16] MEDS: GUAIFENESIN 600MG ER TABLET PO SCH (21:37)
[2017-11-17] VITALS: BP 100/52
[2017-11-17] MEDS: METOCLOPRAMIDE HCL 5MG TABLET PO SCH ×2 (00:17→06:13)
[2017-11-17] MEDS: MORPHINE SULFATE 4 MG/ML CPJ (NOT FOR IM USE) IV PRN (03:02)
[2017-11-17] MEDS: ACETAMINOPHEN WITH CODEINE 300/60MG TABLET PO PRN (03:47)
[2017-11-17 04:00] VITALS: BP 103/51
[2017-11-17] MEDS: BLOOD SUGAR DIAGNOSTIC STRIP TEST SCH ×4 (06:14→21:42)
[2017-11-17 07:08] LABS: BASOPHILS % 0.4 % (0.0-2.0); EOSINOPHILS % 2.6 % (0.0-5.0); HEMATOCRIT. 32.1 % (42.0-52.0); HEMOGLOBIN. 10.5 g/dL (14.0-18.0); MEAN CORPUSCULAR HEMOGLOBIN 32.9 pg (28.0-32.0); MEAN CORPUSCULAR VOLUME 100.2 fL (80.0-94.0); MEAN PLATELET VOLUME 7.7 fl (7.4-10.4); MONOCYTES % 6.2 % (2.0-8.0); NEUTROPHILS % 68.8 % (40.0-76.0); PLATELET 190 x1000/uL (130-400); RED CELL DISTRIBUTION WIDTH 16.3 % (11.6-14.6)
[2017-11-17 07:43] LABS: PHOSPHORUS 6.5 mg/dL (2.5-4.9)
[2017-11-17] MEDS: INSULIN LISPRO 100 UNITS/ML SUBCUT SCH ×4 (07:47→21:00)
[2017-11-17 08:00] VITALS: BP 109/72
[2017-11-17] MEDS: CALCIUM ACETATE 667MG CAPSULE PO SCH ×3 (08:10→18:10)
[2017-11-17] MEDS: LIDOCAINE 5% PATCH TOP SCH (09:00)
[2017-11-17] MEDS: DOCUSATE SODIUM 250MG CAPSULE PO SCH (09:00)
[2017-11-17] MEDS: GUAIFENESIN 600MG ER TABLET PO SCH ×2 (09:00→21:46)
[2017-11-17] MEDS: CINACALCET HCL 60MG TABLET PO SCH (09:00)
[2017-11-17] MEDS: AMLODIPINE 5MG TABLET PO SCH (09:00)
[2017-11-17] MEDS: LISINOPRIL 40MG TABLET PO SCH ×2 (09:00→21:00)
[2017-11-17] MEDS: ASPIRIN 81MG EC TABLET PO SCH (09:00)
[2017-11-17] MEDS: GLYBURIDE 5MG TABLET PO SCH ×2 (09:00→17:00)
[2017-11-17 12:00] VITALS: BP 109/56
[2017-11-17] MEDS ORDERED: SORBITOL 70% SOLN 30ML PO SCH (12:30)
[2017-11-17] MEDS: METOCLOPRAMIDE HCL 10MG/2ML VIAL IV SCH ×2 (13:57→22:00)
[2017-11-17] MEDS: ENOXAPARIN 30MG/0.3ML SYR SUBCUT SCH (14:02)
[2017-11-17] MEDS: TRAMADOL 50MG TABLET PO PRN (14:36)
[2017-11-17 16:00] VITALS: BP 132/51
[2017-11-17] MEDS ORDERED: LIDOCAINE HCL 1% 20ML VIAL (Pyxis) INJ INFIL PRN (17:45)
[2017-11-17] MEDS ORDERED: DIPHENHYDRAMINE 50MG/ML VIAL IV NR (18:15)
[2017-11-17 20:00] VITALS: BP 91/48
[2017-11-17] MEDS: TRAZODONE HCL 50MG TABLET PO PRN (23:43)
[2017-11-18] VITALS: BP 117/52
[2017-11-18 04:00] VITALS: BP 111/54
[2017-11-18] MEDS: METOCLOPRAMIDE HCL 10MG/2ML VIAL IV SCH (07:04)
[2017-11-18] MEDS: BLOOD SUGAR DIAGNOSTIC STRIP TEST SCH ×4 (07:06→21:46)
[2017-11-18] MEDS: INSULIN LISPRO 100 UNITS/ML SUBCUT SCH ×4 (07:06→21:00)
[2017-11-18 08:00] VITALS: BP 97/52
[2017-11-18] MEDS: LISINOPRIL 40MG TABLET PO SCH ×2 (09:00→21:00)
[2017-11-18] MEDS: AMLODIPINE 5MG TABLET PO SCH (09:00)
[2017-11-18] MEDS: GUAIFENESIN 600MG ER TABLET PO SCH ×2 (09:17→22:15)
[2017-11-18] MEDS: ASPIRIN 81MG EC TABLET PO SCH (09:17)
[2017-11-18] MEDS: DOCUSATE SODIUM 250MG CAPSULE PO SCH (09:17)
[2017-11-18] MEDS: CINACALCET HCL 60MG TABLET PO SCH (09:17)
[2017-11-18] MEDS: ENOXAPARIN 30MG/0.3ML SYR SUBCUT SCH (09:18)
[2017-11-18] MEDS: GLYBURIDE 5MG TABLET PO SCH ×2 (09:21→18:29)
[2017-11-18] MEDS: CALCIUM ACETATE 667MG CAPSULE PO SCH ×3 (09:22→18:29)
[2017-11-18] MEDS: LIDOCAINE 5% PATCH TOP SCH (09:23)
[2017-11-18] MEDS ORDERED: SORBITOL 70% SOLN 30ML PO NR (11:15)
[2017-11-18 12:00] VITALS: BP 119/58
[2017-11-18] MEDS: ACETAMINOPHEN WITH CODEINE 300/60MG TABLET PO PRN (13:46)
[2017-11-18] MEDS: METOCLOPRAMIDE HCL 10MG TABLET PO SCH ×2 (13:48→22:15)
[2017-11-18 16:00] VITALS: BP 120/70
[2017-11-18] MEDS ORDERED: FAMOTIDINE 20MG TABLET PO NR (16:30)
[2017-11-18 20:40] VITALS: BP 98/68
[2017-11-18] MEDS: BISACODYL 5MG TABLET PO PRN (22:15)
[2017-11-18] MEDS: TRAMADOL 50MG TABLET PO PRN (22:24)
[2017-11-18] MEDS: ONDANSETRON HCL 4MG/2ML VIAL IV PRN (22:59)
[2017-11-19] VITALS: BP 132/62
[2017-11-19] MEDS: METOCLOPRAMIDE HCL 10MG TABLET PO SCH (05:42)
[2017-11-19] MEDS: TRAMADOL 50MG TABLET PO PRN ×2 (05:42→12:07)
[2017-11-19 06:00] VITALS: BP 112/57
[2017-11-19] MEDS: BLOOD SUGAR DIAGNOSTIC STRIP TEST SCH ×4 (06:03→21:50)
[2017-11-19 07:41] VITALS: BP 134/61
[2017-11-19] MEDS: INSULIN LISPRO 100 UNITS/ML SUBCUT SCH ×4 (08:10→21:00)
[2017-11-19] MEDS: ASPIRIN 81MG EC TABLET PO SCH (08:57)
[2017-11-19] MEDS: FAMOTIDINE 20MG TABLET PO SCH (08:57)
[2017-11-19] MEDS: AMLODIPINE 5MG TABLET PO SCH (08:57)
[2017-11-19] MEDS: DOCUSATE SODIUM 250MG CAPSULE PO SCH (08:57)
[2017-11-19] MEDS: LISINOPRIL 40MG TABLET PO SCH ×2 (08:57→21:00)
[2017-11-19] MEDS: CINACALCET HCL 60MG TABLET PO SCH (08:58)
[2017-11-19] MEDS: BISACODYL 5MG TABLET PO PRN (08:58)
[2017-11-19] MEDS: GUAIFENESIN 600MG ER TABLET PO SCH ×2 (08:58→21:00)
[2017-11-19] MEDS: CALCIUM ACETATE 667MG CAPSULE PO SCH ×3 (09:00→18:31)
[2017-11-19] MEDS: GLYBURIDE 5MG TABLET PO SCH ×2 (09:00→18:31)
[2017-11-19] MEDS: ENOXAPARIN 30MG/0.3ML SYR SUBCUT SCH (09:01)
[2017-11-19] MEDS: LIDOCAINE 5% PATCH TOP SCH (09:02)
[2017-11-19] MEDS ORDERED: LACTULOSE 20G/30ML UDC PO PRN (13:15)
[2017-11-19] MEDS: METOCLOPRAMIDE HCL 10MG/2ML VIAL IV SCH ×2 (14:37→22:00)
[2017-11-19 16:00] VITALS: BP 105/64
[2017-11-19 20:00] VITALS: BP 101/56
[2017-11-19] MEDS: DIPHENHYDRAMINE 50MG/ML VIAL IV PRN (20:39)
[2017-11-19] MEDS: LACTULOSE 20G/30ML UDC PO SCH (22:02)
[2017-11-20] VITALS: BP 105/59
[2017-11-20] MEDS: LACTULOSE 20G/30ML UDC PO SCH ×3 (03:58→21:29)
[2017-11-20 04:00] VITALS: BP 95/69
[2017-11-20] MEDS: BLOOD SUGAR DIAGNOSTIC STRIP TEST SCH ×4 (05:35→21:24)
[2017-11-20] MEDS: METOCLOPRAMIDE HCL 10MG/2ML VIAL IV SCH ×2 (05:35→13:00)
[2017-11-20] MEDS: ONDANSETRON HCL 4MG/2ML VIAL IV PRN (07:12)
[2017-11-20 07:20] LABS: BASOPHILS % 1.2 % (0.0-2.0); EOSINOPHILS % 4.2 % (0.0-5.0); HEMATOCRIT. 32.1 % (42.0-52.0); HEMOGLOBIN. 10.6 g/dL (14.0-18.0); LYMPHOCYTES % 22.3 % (20.0-50.0); MEAN CORPUSCULAR HEMOGLOBIN 32.8 pg (28.0-32.0); MEAN CORPUSCULAR VOLUME 99.5 fL (80.0-94.0); MEAN PLATELET VOLUME 8.1 fl (7.4-10.4); MONOCYTES % 7.3 % (2.0-8.0); PLATELET 204 x1000/uL (130-400); RED BLOOD CELL COUNT 3.23 mill/uL (4.7-6.1); RED CELL DISTRIBUTION WIDTH 16.5 % (11.6-14.6)
[2017-11-20] MEDS: INSULIN LISPRO 100 UNITS/ML SUBCUT SCH ×4 (07:43→21:00)
[2017-11-20] MEDS: CALCIUM ACETATE 667MG CAPSULE PO SCH ×3 (07:43→18:14)
[2017-11-20 08:00] VITALS: BP 114/86
[2017-11-20] MEDS: ENOXAPARIN 30MG/0.3ML SYR SUBCUT SCH (08:57)
[2017-11-20] MEDS: LIDOCAINE 5% PATCH TOP SCH (08:58)
[2017-11-20] MEDS: LISINOPRIL 40MG TABLET PO SCH ×2 (09:00→21:24)
[2017-11-20] MEDS: AMLODIPINE 5MG TABLET PO SCH (09:00)
[2017-11-20 12:00] VITALS: BP 108/54
[2017-11-20] MEDS: CINACALCET HCL 60MG TABLET PO SCH (12:59)
[2017-11-20] MEDS: FAMOTIDINE 20MG TABLET PO SCH (12:59)
[2017-11-20] MEDS: ASPIRIN 81MG EC TABLET PO SCH (12:59)
[2017-11-20] MEDS: DOCUSATE SODIUM 250MG CAPSULE PO SCH (12:59)
[2017-11-20] MEDS: GUAIFENESIN 600MG ER TABLET PO SCH ×2 (12:59→21:00)
[2017-11-20] MEDS ORDERED: LACTULOSE 20G/30ML UDC PO NR (13:00)
[2017-11-20] MEDS: GLYBURIDE 5MG TABLET PO SCH ×2 (13:02→17:00)
[2017-11-20 16:00] VITALS: BP 128/68
[2017-11-20 20:00] VITALS: BP 131/70
[2017-11-20] MEDS: TRAZODONE HCL 50MG TABLET PO PRN (21:24)
[2017-11-20] MEDS: METOCLOPRAMIDE HCL 10MG TABLET PO SCH (21:29)
[2017-11-21] VITALS: BP 138/64
[2017-11-21 04:00] VITALS: BP 91/56
[2017-11-21] MEDS: LACTULOSE 20G/30ML UDC PO SCH ×3 (06:29→21:03)
[2017-11-21] MEDS: METOCLOPRAMIDE HCL 10MG TABLET PO SCH ×3 (06:29→21:04)
[2017-11-21] MEDS: BLOOD SUGAR DIAGNOSTIC STRIP TEST SCH ×4 (06:41→21:02)
[2017-11-21 07:37] LABS: EOSINOPHILS % 3.8 % (0.0-5.0); HEMATOCRIT. 31.1 % (42.0-52.0); HEMOGLOBIN. 10.1 g/dL (14.0-18.0); LYMPHOCYTES % 20.8 % (20.0-50.0); MEAN CORPUSCULAR HEMOGLOBIN 32.2 pg (28.0-32.0); MEAN CORPUSCULAR VOLUME 99.1 fL (80.0-94.0); MEAN PLATELET VOLUME 8.2 fl (7.4-10.4); MONOCYTES % 8.5 % (2.0-8.0); NEUTROPHILS % 65.9 % (40.0-76.0); PLATELET 202 x1000/uL (130-400); RED BLOOD CELL COUNT 3.14 mill/uL (4.7-6.1); RED CELL DISTRIBUTION WIDTH 16.3 % (11.6-14.6)
[2017-11-21 08:00] VITALS: BP 112/52
[2017-11-21] MEDS: INSULIN LISPRO 100 UNITS/ML SUBCUT SCH ×4 (08:10→21:00)
[2017-11-21] MEDS: DOCUSATE SODIUM 250MG CAPSULE PO SCH (09:00)
[2017-11-21] MEDS: LIDOCAINE 5% PATCH TOP SCH (09:00)
[2017-11-21] MEDS: AMLODIPINE 5MG TABLET PO SCH (09:00)
[2017-11-21] MEDS: LISINOPRIL 40MG TABLET PO SCH ×2 (09:00→21:00)
[2017-11-21 12:00] VITALS: BP 89/50
[2017-11-21] MEDS: CALCIUM ACETATE 667MG CAPSULE PO SCH ×3 (12:27→17:45)
[2017-11-21] MEDS: FAMOTIDINE 20MG TABLET PO SCH (12:28)
[2017-11-21] MEDS: ASPIRIN 81MG EC TABLET PO SCH (12:28)
[2017-11-21] MEDS: GUAIFENESIN 600MG ER TABLET PO SCH ×2 (12:29→21:02)
[2017-11-21] MEDS: CINACALCET HCL 60MG TABLET PO SCH (12:29)
[2017-11-21] MEDS: ACETAMINOPHEN 325MG TABLET PO PRN ×2 (12:29→18:25)
[2017-11-21] MEDS: ENOXAPARIN 30MG/0.3ML SYR SUBCUT SCH (12:30)
[2017-11-21] MEDS: GLYBURIDE 5MG TABLET PO SCH ×2 (13:55→17:00)
[2017-11-21] MEDS ORDERED: METOCLOPRAMIDE HCL 10MG/2ML VIAL IV SCH (14:00)
[2017-11-21 16:00] VITALS: BP 89/49
[2017-11-21 20:00] VITALS: BP 112/60
[2017-11-21] MEDS ORDERED: METOCLOPRAMIDE HCL 10MG/2ML VIAL IV PRN (22:00)
[2017-11-21] MEDS: TRAZODONE HCL 50MG TABLET PO PRN (23:58)
[2017-11-22] VITALS: BP 120/58
[2017-11-22] MEDS: ACETAMINOPHEN 325MG TABLET PO PRN (01:43)
[2017-11-22] MEDS: BISACODYL 5MG TABLET PO PRN (01:48)
[2017-11-22] MEDS: DIPHENHYDRAMINE 50MG/ML VIAL IV PRN (01:48)
[2017-11-22 04:00] VITALS: BP 98/44
[2017-11-22] MEDS: LACTULOSE 20G/30ML UDC PO SCH ×3 (05:30→21:42)
[2017-11-22] MEDS: METOCLOPRAMIDE HCL 10MG TABLET PO SCH ×3 (05:30→21:45)
[2017-11-22] MEDS: ONDANSETRON HCL 4MG/2ML VIAL IV PRN (05:30)
[2017-11-22] MEDS: BLOOD SUGAR DIAGNOSTIC STRIP TEST SCH ×4 (06:41→21:44)
[2017-11-22 08:00] VITALS: BP 98/56
[2017-11-22] MEDS: INSULIN LISPRO 100 UNITS/ML SUBCUT SCH ×4 (08:10→21:44)
[2017-11-22] MEDS: LIDOCAINE 5% PATCH TOP SCH (09:00)
[2017-11-22] MEDS: AMLODIPINE 5MG TABLET PO SCH (09:00)
[2017-11-22] MEDS: LISINOPRIL 40MG TABLET PO SCH ×2 (09:00→21:00)
[2017-11-22] MEDS: ASPIRIN 81MG EC TABLET PO SCH (09:56)
[2017-11-22] MEDS: GUAIFENESIN 600MG ER TABLET PO SCH ×2 (09:56→21:42)
[2017-11-22] MEDS: FAMOTIDINE 20MG TABLET PO SCH (09:56)
[2017-11-22] MEDS: DOCUSATE SODIUM 250MG CAPSULE PO SCH (09:56)
[2017-11-22] MEDS: ENOXAPARIN 30MG/0.3ML SYR SUBCUT SCH (09:57)
[2017-11-22] MEDS: CALCIUM ACETATE 667MG CAPSULE PO SCH ×3 (10:00→18:34)
[2017-11-22] MEDS: CINACALCET HCL 60MG TABLET PO SCH (10:29)
[2017-11-22 12:00] VITALS: BP 107/60
[2017-11-22] MEDS: GLYBURIDE 2.5MG TABLET PO SCH (12:40)
[2017-11-22 16:00] VITALS: BP 115/74
[2017-11-22 20:00] VITALS: BP 102/46
[2017-11-22] MEDS: TRAZODONE HCL 50MG TABLET PO PRN (22:46)
[2017-11-23] VITALS: BP 101/62
[2017-11-23 04:00] VITALS: BP 101/65
[2017-11-23] MEDS: METOCLOPRAMIDE HCL 10MG TABLET PO SCH ×3 (06:07→21:02)
[2017-11-23] MEDS: LACTULOSE 20G/30ML UDC PO SCH ×3 (06:07→22:00)
[2017-11-23] MEDS: BLOOD SUGAR DIAGNOSTIC STRIP TEST SCH ×4 (07:21→21:04)
[2017-11-23 07:54] VITALS: BP 129/74
[2017-11-23] MEDS: INSULIN LISPRO 100 UNITS/ML SUBCUT SCH ×4 (08:10→20:41)
[2017-11-23] MEDS: GLYBURIDE 2.5MG TABLET PO SCH (08:34)
[2017-11-23] MEDS: CALCIUM ACETATE 667MG CAPSULE PO SCH ×3 (08:34→18:13)
[2017-11-23] MEDS: LISINOPRIL 40MG TABLET PO SCH ×2 (08:35→21:02)
[2017-11-23] MEDS: DOCUSATE SODIUM 250MG CAPSULE PO SCH (08:35)
[2017-11-23] MEDS: ASPIRIN 81MG EC TABLET PO SCH (08:35)
[2017-11-23] MEDS: GUAIFENESIN 600MG ER TABLET PO SCH ×2 (08:35→21:01)
[2017-11-23] MEDS: CINACALCET HCL 60MG TABLET PO SCH (08:35)
[2017-11-23] MEDS: ENOXAPARIN 30MG/0.3ML SYR SUBCUT SCH (08:35)
[2017-11-23] MEDS: AMLODIPINE 5MG TABLET PO SCH (08:35)
[2017-11-23] MEDS: FAMOTIDINE 20MG TABLET PO SCH (08:36)
[2017-11-23] MEDS: LIDOCAINE 5% PATCH TOP SCH (08:50)
[2017-11-23 08:55] LABS: EOSINOPHILS % 3.5 % (0.0-5.0); HEMATOCRIT. 30.4 % (42.0-52.0); LYMPHOCYTES % 19.4 % (20.0-50.0); MEAN CORPUSCULAR HEMOGLOBIN 32.5 pg (28.0-32.0); MEAN CORPUSCULAR VOLUME 99.1 fL (80.0-94.0); MEAN PLATELET VOLUME 8.5 fl (7.4-10.4); MONOCYTES % 8.6 % (2.0-8.0); NEUTROPHILS % 67.5 % (40.0-76.0); PLATELET 201 x1000/uL (130-400); RED BLOOD CELL COUNT 3.06 mill/uL (4.7-6.1); RED CELL DISTRIBUTION WIDTH 16.4 % (11.6-14.6)
[2017-11-23 12:12] VITALS: BP 128/69
[2017-11-23 16:17] VITALS: BP 126/72
[2017-11-23 20:00] VITALS: BP 116/71
[2017-11-23] MEDS: TRAZODONE HCL 50MG TABLET PO PRN (21:03)
[2017-11-24] VITALS: BP 118/65
[2017-11-24 04:00] VITALS: BP 118/62
[2017-11-24] MEDS: METOCLOPRAMIDE HCL 10MG TABLET PO SCH ×3 (05:51→21:39)
[2017-11-24] MEDS: LACTULOSE 20G/30ML UDC PO SCH ×3 (05:51→21:39)
[2017-11-24] MEDS: BLOOD SUGAR DIAGNOSTIC STRIP TEST SCH ×4 (07:19→21:31)
[2017-11-24 08:00] VITALS: BP 142/66
[2017-11-24] MEDS: INSULIN LISPRO 100 UNITS/ML SUBCUT SCH ×4 (08:10→21:00)
[2017-11-24] MEDS: ACETAMINOPHEN 325MG TABLET PO PRN ×2 (08:58→18:29)
[2017-11-24] MEDS: BISACODYL 5MG TABLET PO PRN ×2 (08:58→21:39)
[2017-11-24] MEDS: DOCUSATE SODIUM 250MG CAPSULE PO SCH (08:59)
[2017-11-24] MEDS: LISINOPRIL 40MG TABLET PO SCH ×2 (09:00→21:00)
[2017-11-24] MEDS: AMLODIPINE 5MG TABLET PO SCH (09:00)
[2017-11-24] MEDS: LIDOCAINE 5% PATCH TOP SCH (09:00)
[2017-11-24] MEDS: ENOXAPARIN 30MG/0.3ML SYR SUBCUT SCH (09:00)
[2017-11-24] MEDS: ASPIRIN 81MG EC TABLET PO SCH (09:02)
[2017-11-24] MEDS: GUAIFENESIN 600MG ER TABLET PO SCH ×2 (09:02→21:38)
[2017-11-24] MEDS: CINACALCET HCL 60MG TABLET PO SCH (09:02)
[2017-11-24] MEDS: GLYBURIDE 2.5MG TABLET PO SCH (09:02)
[2017-11-24] MEDS: CALCIUM ACETATE 667MG CAPSULE PO SCH ×3 (09:02→18:10)
[2017-11-24] MEDS: FAMOTIDINE 20MG TABLET PO SCH (09:02)
[2017-11-24 12:00] VITALS: BP 136/73
[2017-11-24 16:00] VITALS: BP 102/51
[2017-11-24] MEDS: ONDANSETRON HCL 4MG/2ML VIAL IV PRN (19:49)
[2017-11-24 20:00] VITALS: BP 109/67
[2017-11-24] MEDS: DIPHENHYDRAMINE 50MG/ML VIAL IV PRN (20:21)
[2017-11-25] VITALS: BP 119/44
[2017-11-25 04:00] VITALS: BP 112/68
[2017-11-25] MEDS: LACTULOSE 20G/30ML UDC PO SCH ×2 (06:00→14:00)
[2017-11-25] MEDS: BISACODYL 5MG TABLET PO PRN (06:53)
[2017-11-25] MEDS: METOCLOPRAMIDE HCL 10MG TABLET PO SCH ×2 (06:53→14:00)
[2017-11-25] MEDS: BLOOD SUGAR DIAGNOSTIC STRIP TEST SCH ×3 (06:55→17:40)
[2017-11-25] MEDS: INSULIN LISPRO 100 UNITS/ML SUBCUT SCH ×3 (06:55→18:10)
[2017-11-25 08:00] VITALS: BP 125/50
[2017-11-25] MEDS: LIDOCAINE 5% PATCH TOP SCH (09:00)
[2017-11-25] MEDS: DOCUSATE SODIUM 250MG CAPSULE PO SCH (09:02)
[2017-11-25] MEDS: CALCIUM ACETATE 667MG CAPSULE PO SCH ×3 (09:02→18:10)
[2017-11-25] MEDS: LISINOPRIL 40MG TABLET PO SCH (09:02)
[2017-11-25] MEDS: GUAIFENESIN 600MG ER TABLET PO SCH (09:02)
[2017-11-25] MEDS: ASPIRIN 81MG EC TABLET PO SCH (09:02)
[2017-11-25] MEDS: AMLODIPINE 5MG TABLET PO SCH (09:02)
[2017-11-25] MEDS: GLYBURIDE 2.5MG TABLET PO SCH (09:02)
[2017-11-25] MEDS: FAMOTIDINE 20MG TABLET PO SCH (09:02)
[2017-11-25] MEDS: CINACALCET HCL 60MG TABLET PO SCH (09:02)
[2017-11-25] MEDS: ENOXAPARIN 30MG/0.3ML SYR SUBCUT SCH (09:03)
[2017-11-25 12:00] VITALS: BP 92/65
[2017-11-25 16:00] VITALS: BP 96/51
== END 2017-11-25 18:10 | DRG 291 ==
LOC: ER 21:06 → 7WST 11-13 00:25 → EDBEDREQTM 11-13 00:27 → EDBEDREQ 11-13 00:27 → ENRESERV 11-13 01:00 → 7WST 11-13 20:47
PROVIDERS: ADMIT Internal Medicine Nephrology; ATTEND Internal Medicine Nephrology
PROC: 5A1D70Z Performance of Urinary Filtration, Intermittent, Less than 6 Hours Per Day (ICD-10-PCS; principal; 2017-11-12)
PROC: 5A2204Z Restoration of Cardiac Rhythm, Single (ICD-10-PCS; 2017-11-16)
PROC: 5A1D70Z Performance of Urinary Filtration, Intermittent, Less than 6 Hours Per Day (ICD-10-PCS; 2017-11-17)
PROC: 5A1D70Z Performance of Urinary Filtration, Intermittent, Less than 6 Hours Per Day (ICD-10-PCS; 2017-11-18)
PROC: 5A1D70Z Performance of Urinary Filtration, Intermittent, Less than 6 Hours Per Day (ICD-10-PCS; 2017-11-19)
PROC: 5A1D70Z Performance of Urinary Filtration, Intermittent, Less than 6 Hours Per Day (ICD-10-PCS; 2017-11-21)
DX: I13.2 Hypertensive heart and chronic kidney disease with heart failure and with stage 5 chronic kidney disease, or end stage renal disease (principal); N18.6 End stage renal disease; J84.9 Interstitial pulmonary disease, unspecified; E11.22 Type 2 diabetes mellitus with diabetic chronic kidney disease; K31.84 Gastroparesis; E44.1 Mild protein-calorie malnutrition; E11.43 Type 2 diabetes mellitus with diabetic autonomic (poly)neuropathy; E83.39 Other disorders of phosphorus metabolism; I50.33 Acute on chronic diastolic (congestive) heart failure; I69.354 Hemiplegia and hemiparesis following cerebral infarction affecting left non-dominant side; K56.7 Ileus, unspecified; I47.1 Supraventricular tachycardia; I48.91 Unspecified atrial fibrillation; E83.41 Hypermagnesemia; R13.10 Dysphagia, unspecified; D63.1 Anemia in chronic kidney disease; D53.9 Nutritional anemia, unspecified; K59.00 Constipation, unspecified; J44.9 Chronic obstructive pulmonary disease, unspecified; Z99.2 Dependence on renal dialysis; Z93.1 Gastrostomy status; Z68.32 Body mass index [BMI] 32.0-32.9, adult; Z98.2 Presence of cerebrospinal fluid drainage device; Z91.81 History of falling; Z87.891 Personal history of nicotine dependence; Z79.899 Other long term (current) drug therapy; Z79.82 Long term (current) use of aspirin; Z79.4 Long term (current) use of insulin
CPT/HCPCS: 36415; 71045; 74018; 76700; 78265; 80048; 80053; 80076; 82962; 83036; 83605; 83690; 83735; 83880; 84100; 84443; 84484; 85025; 85379; 85610; 93005; 97112; 97116; 97162; 97530; 99285; A6261; G0482; J1200; J1650; J1815; J2270; J2405; J2765; J7030; J8597

== ENCOUNTER 2017-12-01 09:47 | Inpatient (IN) | payer MEDICARE, MEDICAID ==
[~2017-12-01] VITALS: Ht 167.6 cm; Wt 103.0 kg
[~2017-12-01 09:47] MED LIST changes: +AMLO5TAB4 PO; -ASPI-1158; +ASPI-1158 PO; +CALC667T5 PO; +CINA60 PO; -FUROSEMIDE; +GLYB5TAB7 PO; -GLYBURIDE; +LISI40TA4 PO; -LISINOPRIL; +TRAZ-129 PO
[2017-12-01 10:26] LABS: BASOPHILS % 1.4 % (0.0-2.0); EOSINOPHILS % 2.1 % (0.0-5.0); HEMATOCRIT. 32.7 % (42.0-52.0); HEMOGLOBIN. 10.7 g/dL (14.0-18.0); LYMPHOCYTES % 20.1 % (20.0-50.0); MEAN CORPUSCULAR HEMOGLOBIN 31.9 pg (28.0-32.0); MEAN CORPUSCULAR VOLUME 97.3 fL (80.0-94.0); MEAN PLATELET VOLUME 8.2 fl (7.4-10.4); MONOCYTES % 6.6 % (2.0-8.0); NEUTROPHILS % 69.8 % (40.0-76.0); PLATELET 284 x1000/uL (130-400); RED BLOOD CELL COUNT 3.36 mill/uL (4.7-6.1); RED CELL DISTRIBUTION WIDTH 15.9 % (11.6-14.6)
[2017-12-01 10:33] LABS: INR 1.1; PROTHROMBIN TIME 11.6 sec (9.4-11.6)
[2017-12-01 10:34] LABS: CHLORIDE 97 mEq/L (98-107)
[2017-12-01] MEDS ORDERED: ONDANSETRON HCL 4MG/2ML VIAL ONE (10:53)
[2017-12-01] MEDS ORDERED: ONDANSETRON HCL 4MG/2ML VIAL IV ONE (11:30)
[2017-12-01 12:19] LABS: BG BASE EXCESS 4.8 mmol/L (-2.0-2.0); BG CARBOXYHEMOGLOBIN 1.5 % (0.5-1.5); BG DEOXYHEMOGLOBIN 12.7 % (0.0-5.0); BG HCO3 ACT 30.5 mmol/L (22.0-26.0); BG OXYGEN SATURATION 87.1 % (92.0-98.5); BG OXYHEMOGLOBIN 85.8 % (94.0-97.0); BG PCO2 50.5 mmHg (35.0-45.0); BG PH 7.399 (7.350-7.450); BG PO2 57.8 mmHg (75.0-100.0); BG SAMPLE SITE RIGHT RADIAL; BG TOTAL HEMOGLOBIN 11.7 g/dL (12.0-18.0); BG VENT MODE ROOM AIR
[2017-12-01 14:00] VITALS: BP 134/57
[2017-12-01] MEDS ORDERED: CLONIDINE 0.1MG TABLET PO PRN (14:00)
[2017-12-01] MEDS ORDERED: IPRATROPIUM/ALBUTEROL 0.5-3(2.5)MG/3ML NEB INH PRN (14:00)
[2017-12-01] MEDS ORDERED: ONDANSETRON HCL 4MG/2ML VIAL IV PRN (14:00)
[2017-12-01] MEDS ORDERED: MAGNESIUM/ALUMINUM HYDROXIDE/SIMETHICONE 30ML UDC PO PRN (14:00)
[2017-12-01] MEDS ORDERED: DOCUSATE SODIUM 100MG CAPSULE PO PRN (14:00)
[2017-12-01 15:00] VITALS: BP 134/68
[2017-12-01] MEDS: METOCLOPRAMIDE HCL 10MG TABLET PO SCH ×2 (16:00→17:00)
[2017-12-01] MEDS: DEXT 5%/0.45% NACL 1000ML 1,000 ML IV SCH (17:01)
[2017-12-01] MEDS: LEVETIRACETAM 1000MG/100ML 100 ML IV SCH (18:43)
[2017-12-01 19:09] LABS: ETHANOL BLOOD < 10 mg/dL
[2017-12-01 19:12] LABS: AMMONIA < 10 uMol/L (<32)
[2017-12-01 19:19] LABS: T4 FREE 1.12 ng/dL (0.76-1.46)
[2017-12-01 19:38] LABS: FOLIC ACID (FOLATE) SERUM 11.3 ng/mL (>5.38)
[2017-12-01] MEDS ORDERED: KEPP500 PO (19:58)
[2017-12-01] MEDS ORDERED: BACL-141 PO (19:59)
[2017-12-01] MEDS ORDERED: GABA-290 PO (20:00)
[2017-12-01] MEDS ORDERED: DOCU-150 PO (20:01)
[2017-12-01] MEDS ORDERED: LIDOCAINE PATCH 5% TOP (20:09)
[2017-12-01] MEDS ORDERED: LOV40 SQ (20:09)
[2017-12-01] MEDS ORDERED: FAMO-134 PO (20:11)
[2017-12-01] MEDS ORDERED: LACT10SO6 PO (20:13)
[2017-12-01] MEDS ORDERED: DIPH25CA83 PO (20:14)
[2017-12-01] MEDS ORDERED: ONDA4SOL2 PO (20:15)
[2017-12-01] MEDS ORDERED: ACET-2178 PO (20:17)
[2017-12-01 20:36] VITALS: BP 105/56
[2017-12-01] MEDS: INSULIN LISPRO 100 UNITS/ML SUBCUT SCH (23:37)
[2017-12-01] MEDS ORDERED: DEXTROSE 50% WATER 50ML SYRINGE IV PRN (23:45)
[2017-12-02] VITALS (7 sets, daily range): BP systolic 112–136; BP diastolic 55–67
[2017-12-02] MEDS ORDERED: DEXTROSE 50% WATER 50ML SYRINGE IV PRN
[2017-12-02] MEDS: METOCLOPRAMIDE HCL 10MG/2ML VIAL IV SCH ×2 (06:00)
[2017-12-02] MEDS: INSULIN LISPRO 100 UNITS/ML SUBCUT SCH ×4 (06:00→23:02)
[2017-12-02] MEDS: BLOOD SUGAR DIAGNOSTIC STRIP TEST SCH ×5 (06:39→23:02)
[2017-12-02] MEDS: LEVETIRACETAM 1000MG/100ML 100 ML IV SCH ×2 (06:46→21:15)
[2017-12-02] MEDS: OMEPRAZOLE 20MG CAPSULE EXTENDED RELEASE PO SCH (06:48)
[2017-12-02] MEDS ORDERED: METOCLOPRAMIDE HCL 10MG/2ML VIAL IV PRN (11:15)
[2017-12-02 11:38] LABS: BASOPHILS % 1.1 % (0.0-2.0); EOSINOPHILS % 2.3 % (0.0-5.0); HEMATOCRIT. 34.3 % (42.0-52.0); HEMOGLOBIN. 11.1 g/dL (14.0-18.0); LYMPHOCYTES % 17.8 % (20.0-50.0); MEAN CORPUSCULAR VOLUME 99.1 fL (80.0-94.0); MEAN PLATELET VOLUME 8.5 fl (7.4-10.4); MONOCYTES % 5.6 % (2.0-8.0); NEUTROPHILS % 73.2 % (40.0-76.0); PLATELET 310 x1000/uL (130-400); RED BLOOD CELL COUNT 3.46 mill/uL (4.7-6.1); RED CELL DISTRIBUTION WIDTH 15.8 % (11.6-14.6)
[2017-12-02 12:10] LABS: CHLORIDE 98 mEq/L (98-107)
[2017-12-02 12:34] LABS: PHOSPHORUS 5.1 mg/dL (2.5-4.9)
[2017-12-02] MEDS: DEXT 5%/0.45% NACL 1000ML 1,000 ML IV SCH (14:13)
[2017-12-03] VITALS (12 sets, daily range): BP systolic 92–141; BP diastolic 54–87
[2017-12-03] MEDS: LEVETIRACETAM 1000MG/100ML 100 ML IV SCH ×2 (06:00→18:30)
[2017-12-03] MEDS: BLOOD SUGAR DIAGNOSTIC STRIP TEST SCH ×4 (06:00→23:33)
[2017-12-03] MEDS: INSULIN LISPRO 100 UNITS/ML SUBCUT SCH ×4 (06:00→23:40)
[2017-12-03] MEDS: OMEPRAZOLE 20MG CAPSULE EXTENDED RELEASE PO SCH (07:30)
[2017-12-03] MEDS ORDERED: METOCLOPRAMIDE HCL 10MG/2ML VIAL IV SCH (14:00)
[2017-12-03] MEDS: ENOXAPARIN 40MG/0.4ML SYR SUBCUT SCH ×2 (17:00→17:15)
[2017-12-03] MEDS: METOCLOPRAMIDE HCL 10MG/2ML VIAL IV SCH (17:14)
[2017-12-03] MEDS: DEXT 5%/0.45% NACL 1000ML 1,000 ML IV SCH (18:31)
[2017-12-04] VITALS (12 sets, daily range): BP systolic 97–139; BP diastolic 42–79
[2017-12-04] MEDS ORDERED: MORPHINE SULFATE 4 MG/ML CPJ (NOT FOR IM USE) IV PRN (00:15)
[2017-12-04] MEDS: METOCLOPRAMIDE HCL 10MG/2ML VIAL IV SCH ×3 (03:51→18:10)
[2017-12-04] MEDS: LEVETIRACETAM 1000MG/100ML 100 ML IV SCH (05:41)
[2017-12-04] MEDS: BLOOD SUGAR DIAGNOSTIC STRIP TEST SCH ×3 (05:44→18:11)
[2017-12-04] MEDS: INSULIN LISPRO 100 UNITS/ML SUBCUT SCH ×3 (05:48→18:23)
[2017-12-04] MEDS: OMEPRAZOLE 20MG CAPSULE EXTENDED RELEASE PO SCH (07:30)
[2017-12-04] MEDS: LEVETIRACETAM 1,000 MG in SODIUM CHLORIDE 0.9% 100 ML IV SCH (18:11)
[2017-12-04] MEDS: ENOXAPARIN 40MG/0.4ML SYR SUBCUT SCH (18:24)
[2017-12-04] MEDS: ACETAMINOPHEN 325MG TABLET PO PRN (20:12)
[2017-12-05] VITALS (12 sets, daily range): BP systolic 90–143; BP diastolic 55–88
[2017-12-05] MEDS: INSULIN LISPRO 100 UNITS/ML SUBCUT SCH ×5 (00:55→23:48)
[2017-12-05] MEDS: BLOOD SUGAR DIAGNOSTIC STRIP TEST SCH ×5 (00:55→23:33)
[2017-12-05] MEDS: METOCLOPRAMIDE HCL 10MG/2ML VIAL IV SCH ×3 (01:01→17:49)
[2017-12-05] MEDS: ACETAMINOPHEN 325MG TABLET PO PRN (01:34)
[2017-12-05] MEDS: LEVETIRACETAM 1,000 MG in SODIUM CHLORIDE 0.9% 100 ML IV SCH (05:51)
[2017-12-05 06:29] LABS: BASOPHILS % 0.8 % (0.0-2.0); HEMOGLOBIN. 10.7 g/dL (14.0-18.0); LYMPHOCYTES % 19.2 % (20.0-50.0); MEAN CORPUSCULAR HEMOGLOBIN 32.3 pg (28.0-32.0); MEAN CORPUSCULAR VOLUME 99.7 fL (80.0-94.0); MEAN PLATELET VOLUME 8.1 fl (7.4-10.4); MONOCYTES % 6.5 % (2.0-8.0); NEUTROPHILS % 70.5 % (40.0-76.0); PLATELET 210 x1000/uL (130-400); RED BLOOD CELL COUNT 3.31 mill/uL (4.7-6.1); RED CELL DISTRIBUTION WIDTH 15.7 % (11.6-14.6)
[2017-12-05] MEDS: OMEPRAZOLE 20MG CAPSULE EXTENDED RELEASE PO SCH (06:45)
[2017-12-05 08:05] LABS: PHOSPHORUS 5.6 mg/dL (2.5-4.9)
[2017-12-05] MEDS: DIPHENHYDRAMINE 50MG/ML VIAL IV PRN (10:35)
[2017-12-05] MEDS: HYDROCODONE/ACETAMINOPHEN 5/325MG TABLET PO PRN (11:47)
[2017-12-05] MEDS: HYDROCODONE/ACETAMINOPHEN 10/325MG TABLET PO PRN ×2 (15:56→23:33)
[2017-12-05] MEDS: ENOXAPARIN 40MG/0.4ML SYR SUBCUT SCH (17:48)
[2017-12-05] MEDS: LEVETIRACETAM 1000MG/100ML 100 ML IV SCH (17:52)
[2017-12-05] MEDS: BACLOFEN 10MG TABLET PO SCH (20:51)
[2017-12-05] MEDS: GABAPENTIN 300MG CAPSULE PO SCH (20:51)
[2017-12-06] VITALS (13 sets, daily range): BP systolic 80–121; BP diastolic 48–78
[2017-12-06] MEDS: METOCLOPRAMIDE HCL 10MG/2ML VIAL IV SCH ×3 (01:02→18:06)
[2017-12-06] MEDS: LEVETIRACETAM 1000MG/100ML 100 ML IV SCH ×2 (05:05→18:06)
[2017-12-06] MEDS: BLOOD SUGAR DIAGNOSTIC STRIP TEST SCH ×3 (05:05→18:01)
[2017-12-06] MEDS: INSULIN LISPRO 100 UNITS/ML SUBCUT SCH ×3 (05:14→18:08)
[2017-12-06] MEDS: OMEPRAZOLE 20MG CAPSULE EXTENDED RELEASE PO SCH (06:31)
[2017-12-06] MEDS: HYDROCODONE/ACETAMINOPHEN 10/325MG TABLET PO PRN (06:42)
[2017-12-06 08:13] LABS: BASOPHILS % 0.8 % (0.0-2.0); EOSINOPHILS % 3.5 % (0.0-5.0); HEMATOCRIT. 33.1 % (42.0-52.0); HEMOGLOBIN. 10.8 g/dL (14.0-18.0); LYMPHOCYTES % 20.2 % (20.0-50.0); MEAN CORPUSCULAR HEMOGLOBIN 32.4 pg (28.0-32.0); MEAN CORPUSCULAR VOLUME 99.2 fL (80.0-94.0); MEAN PLATELET VOLUME 8.4 fl (7.4-10.4); MONOCYTES % 7.1 % (2.0-8.0); NEUTROPHILS % 68.4 % (40.0-76.0); PLATELET 206 x1000/uL (130-400); RED BLOOD CELL COUNT 3.34 mill/uL (4.7-6.1); RED CELL DISTRIBUTION WIDTH 15.6 % (11.6-14.6)
[2017-12-06] MEDS: HYDROCODONE/ACETAMINOPHEN 5/325MG TABLET PO PRN ×2 (12:53→18:49)
[2017-12-06] MEDS: ENOXAPARIN 40MG/0.4ML SYR SUBCUT SCH (18:06)
[2017-12-06] MEDS: BACLOFEN 10MG TABLET PO SCH (20:19)
[2017-12-06] MEDS: GABAPENTIN 300MG CAPSULE PO SCH (20:19)
[2017-12-07] VITALS (8 sets, daily range): BP systolic 98–122; BP diastolic 48–96
[2017-12-07] MEDS: METOCLOPRAMIDE HCL 10MG/2ML VIAL IV SCH ×3 (01:07→18:18)
[2017-12-07] MEDS: HYDROCODONE/ACETAMINOPHEN 10/325MG TABLET PO PRN ×2 (01:09→09:57)
[2017-12-07] MEDS: MUPIROCIN 2% OINT 22GM TOP SCH ×3 (06:00→21:51)
[2017-12-07] MEDS: LEVETIRACETAM 1000MG/100ML 100 ML IV SCH ×2 (06:00→18:17)
[2017-12-07] MEDS: INSULIN LISPRO 100 UNITS/ML SUBCUT SCH ×4 (06:00→18:19)
[2017-12-07] MEDS: BLOOD SUGAR DIAGNOSTIC STRIP TEST SCH ×4 (06:01→17:43)
[2017-12-07] MEDS: OMEPRAZOLE 20MG CAPSULE EXTENDED RELEASE PO SCH (09:47)
[2017-12-07 12:29] LABS: BASOPHILS % 0.8 % (0.0-2.0); EOSINOPHILS % 3.9 % (0.0-5.0); HEMATOCRIT. 31.5 % (42.0-52.0); HEMOGLOBIN. 10.4 g/dL (14.0-18.0); LYMPHOCYTES % 21.8 % (20.0-50.0); MEAN CORPUSCULAR HEMOGLOBIN 32.4 pg (28.0-32.0); MEAN PLATELET VOLUME 8.2 fl (7.4-10.4); MONOCYTES % 7.3 % (2.0-8.0); NEUTROPHILS % 66.2 % (40.0-76.0); PLATELET 197 x1000/uL (130-400); RED BLOOD CELL COUNT 3.21 mill/uL (4.7-6.1); RED CELL DISTRIBUTION WIDTH 15.9 % (11.6-14.6)
[2017-12-07] MEDS: ENOXAPARIN 40MG/0.4ML SYR SUBCUT SCH (18:17)
[2017-12-07] MEDS: GABAPENTIN 300MG CAPSULE PO SCH (21:50)
[2017-12-07] MEDS: BACLOFEN 10MG TABLET PO SCH (21:50)
[2017-12-08] VITALS (8 sets, daily range): BP systolic 96–148; BP diastolic 53–77
[2017-12-08] MEDS: HYDROCODONE/ACETAMINOPHEN 10/325MG TABLET PO PRN ×2 (00:29→11:14)
[2017-12-08] MEDS: BLOOD SUGAR DIAGNOSTIC STRIP TEST SCH ×4 (00:33→17:28)
[2017-12-08] MEDS: METOCLOPRAMIDE HCL 10MG/2ML VIAL IV SCH ×3 (01:17→18:17)
[2017-12-08] MEDS: INSULIN LISPRO 100 UNITS/ML SUBCUT SCH ×4 (06:00→18:26)
[2017-12-08] MEDS: HYDROCODONE/ACETAMINOPHEN 5/325MG TABLET PO PRN ×2 (06:01→18:48)
[2017-12-08] MEDS: LEVETIRACETAM 1000MG/100ML 100 ML IV SCH ×2 (06:02→18:17)
[2017-12-08] MEDS: MUPIROCIN 2% OINT 22GM TOP SCH ×4 (06:03→22:58)
[2017-12-08] MEDS: OMEPRAZOLE 20MG CAPSULE EXTENDED RELEASE PO SCH (07:30)
[2017-12-08] MEDS ORDERED: BARIUM SULFATE 176 GM SUSP.RECON ONE (09:09)
[2017-12-08] MEDS: ENOXAPARIN 40MG/0.4ML SYR SUBCUT SCH (18:27)
[2017-12-09] VITALS (9 sets, daily range): BP systolic 113–155; BP diastolic 61–88
[2017-12-09] MEDS: BLOOD SUGAR DIAGNOSTIC STRIP TEST SCH ×4 (00:33→18:00)
[2017-12-09] MEDS: METOCLOPRAMIDE HCL 10MG/2ML VIAL IV SCH ×3 (02:51→19:11)
[2017-12-09] MEDS: HYDROCODONE/ACETAMINOPHEN 5/325MG TABLET PO PRN ×3 (04:54→20:03)
[2017-12-09] MEDS: MUPIROCIN 2% OINT 22GM TOP SCH ×3 (05:08→22:58)
[2017-12-09] MEDS: LEVETIRACETAM 1000MG/100ML 100 ML IV SCH ×2 (05:08→19:10)
[2017-12-09] MEDS: INSULIN LISPRO 100 UNITS/ML SUBCUT SCH ×4 (05:36→18:00)
[2017-12-09 07:50] LABS: BASOPHILS % 0.6 % (0.0-2.0); EOSINOPHILS % 3.1 % (0.0-5.0); HEMATOCRIT. 30.5 % (42.0-52.0); LYMPHOCYTES % 20.9 % (20.0-50.0); MEAN CORPUSCULAR HEMOGLOBIN 32.7 pg (28.0-32.0); MEAN CORPUSCULAR VOLUME 100.1 fL (80.0-94.0); MEAN PLATELET VOLUME 8.6 fl (7.4-10.4); MONOCYTES % 5.7 % (2.0-8.0); NEUTROPHILS % 69.7 % (40.0-76.0); PLATELET 183 x1000/uL (130-400); RED BLOOD CELL COUNT 3.05 mill/uL (4.7-6.1); RED CELL DISTRIBUTION WIDTH 15.9 % (11.6-14.6)
[2017-12-09] MEDS: OMEPRAZOLE 20MG CAPSULE EXTENDED RELEASE PO SCH (09:11)
[2017-12-09] MEDS: ENOXAPARIN 40MG/0.4ML SYR SUBCUT SCH (19:12)
[2017-12-09 19:40] LABS: PHOSPHORUS 4.6 mg/dL (2.5-4.9)
[2017-12-10] VITALS (7 sets, daily range): BP systolic 101–150; BP diastolic 51–91
[2017-12-10] MEDS: METOCLOPRAMIDE HCL 10MG/2ML VIAL IV SCH ×3 (01:09→16:42)
[2017-12-10] MEDS: LEVETIRACETAM 1000MG/100ML 100 ML IV SCH ×2 (05:22→16:42)
[2017-12-10] MEDS: HYDROCODONE/ACETAMINOPHEN 5/325MG TABLET PO PRN ×2 (05:23→23:54)
[2017-12-10] MEDS: MUPIROCIN 2% OINT 22GM TOP SCH ×4 (05:29→22:00)
[2017-12-10] MEDS: INSULIN LISPRO 100 UNITS/ML SUBCUT SCH ×5 (05:30→23:24)
[2017-12-10] MEDS: BLOOD SUGAR DIAGNOSTIC STRIP TEST SCH ×5 (05:30→23:24)
[2017-12-10 06:23] LABS: BASOPHILS % 0.8 % (0.0-2.0); EOSINOPHILS % 3.1 % (0.0-5.0); HEMOGLOBIN. 10.1 g/dL (14.0-18.0); LYMPHOCYTES % 20.9 % (20.0-50.0); MEAN CORPUSCULAR HEMOGLOBIN 32.9 pg (28.0-32.0); MEAN CORPUSCULAR VOLUME 101.2 fL (80.0-94.0); MEAN PLATELET VOLUME 8.5 fl (7.4-10.4); MONOCYTES % 4.9 % (2.0-8.0); NEUTROPHILS % 70.3 % (40.0-76.0); PLATELET 185 x1000/uL (130-400); RED BLOOD CELL COUNT 3.06 mill/uL (4.7-6.1); RED CELL DISTRIBUTION WIDTH 16.1 % (11.6-14.6)
[2017-12-10] MEDS: OMEPRAZOLE 20MG CAPSULE EXTENDED RELEASE PO SCH (07:40)
[2017-12-10 08:22] LABS: PHOSPHORUS 5.5 mg/dL (2.5-4.9)
[2017-12-10] MEDS ORDERED: ENOXAPARIN 40MG/0.4ML SYR SUBCUT SCH (15:18)
[2017-12-10] MEDS: ENOXAPARIN 40MG/0.4ML SYR SUBCUT SCH (16:14)
[2017-12-10] MEDS: METOPROLOL TARTRATE 25MG TABLET PO SCH ×2 (16:15→23:19)
[2017-12-10] MEDS: ACETAMINOPHEN 325MG TABLET PO PRN (16:17)
[2017-12-10] MEDS: DIPHENHYDRAMINE 50MG/ML VIAL IV PRN (23:19)
[2017-12-11] VITALS: BP 127/74
[2017-12-11] MEDS: METOCLOPRAMIDE HCL 10MG/2ML VIAL IV SCH (01:22)
[2017-12-11 04:00] VITALS: BP 101/68
[2017-12-11] MEDS: LEVETIRACETAM 1000MG/100ML 100 ML IV SCH (05:10)
[2017-12-11] MEDS: MUPIROCIN 2% OINT 22GM TOP SCH ×2 (05:11→16:44)
[2017-12-11] MEDS: BLOOD SUGAR DIAGNOSTIC STRIP TEST SCH ×2 (05:11→12:40)
[2017-12-11] MEDS: INSULIN LISPRO 100 UNITS/ML SUBCUT SCH ×2 (05:11→12:00)
[2017-12-11 08:00] VITALS: BP 113/58
[2017-12-11] MEDS: METOPROLOL TARTRATE 25MG TABLET PO SCH (08:56)
[2017-12-11] MEDS: OMEPRAZOLE 20MG CAPSULE EXTENDED RELEASE PO SCH (08:56)
[2017-12-11] MEDS: HYDROCODONE/ACETAMINOPHEN 5/325MG TABLET PO PRN (08:59)
[2017-12-11 12:00] VITALS: BP 112/68
[2017-12-11] MEDS ORDERED: LEVETIRACETAM 500MG TABLET PO SCH (12:15)
[2017-12-11] MEDS ORDERED: METOCLOPRAMIDE HCL 5MG TABLET PO SCH (12:30)
[2017-12-11 16:00] VITALS: BP 121/69
[2017-12-11] MEDS: ENOXAPARIN 40MG/0.4ML SYR SUBCUT SCH (16:43)
[2017-12-11] MEDS ORDERED: HYDROCODONE/ACETAMINOPHEN 5/325MG TABLET PO PRN (16:45)
[2017-12-11 16:51] VITALS: BP 121/69
[2017-12-12] MEDS ORDERED: BLOOD SUGAR DIAGNOSTIC STRIP TEST SCH
== END 2017-12-11 17:00 | DRG 91 ==
LOC: ER 09:57 → 6WST 11:58 → EDBEDREQSVC 12:01 → EDBEDREQ 12:01 → ENRESERV 12:58 → SUPCPDRO 13:17 → 5EST 12-02 18:40 → 7WST 12-09 17:10
PROVIDERS: ADMIT Internal Medicine Nephrology; ATTEND Internal Medicine Nephrology
PROC: 5A1D70Z Performance of Urinary Filtration, Intermittent, Less than 6 Hours Per Day (ICD-10-PCS; principal; 2017-12-02)
PROC: 5A1D70Z Performance of Urinary Filtration, Intermittent, Less than 6 Hours Per Day (ICD-10-PCS; 2017-12-05)
PROC: 5A1D70Z Performance of Urinary Filtration, Intermittent, Less than 6 Hours Per Day (ICD-10-PCS; 2017-12-08)
PROC: 5A1D70Z Performance of Urinary Filtration, Intermittent, Less than 6 Hours Per Day (ICD-10-PCS; 2017-12-10)
DX: G92 Toxic encephalopathy (principal); N18.6 End stage renal disease; E11.22 Type 2 diabetes mellitus with diabetic chronic kidney disease; E11.43 Type 2 diabetes mellitus with diabetic autonomic (poly)neuropathy; K31.84 Gastroparesis; E44.1 Mild protein-calorie malnutrition; I47.1 Supraventricular tachycardia; I13.11 Hypertensive heart and chronic kidney disease without heart failure, with stage 5 chronic kidney disease, or end stage renal disease; I48.92 Unspecified atrial flutter; I69.354 Hemiplegia and hemiparesis following cerebral infarction affecting left non-dominant side; R13.10 Dysphagia, unspecified; G40.909 Epilepsy, unspecified, not intractable, without status epilepticus; D63.8 Anemia in other chronic diseases classified elsewhere; D63.1 Anemia in chronic kidney disease; L60.0 Ingrowing nail; L60.3 Nail dystrophy; I69.391 Dysphagia following cerebral infarction; Z93.1 Gastrostomy status; Z91.19 Patient's noncompliance with other medical treatment and regimen; Z99.2 Dependence on renal dialysis; Z98.2 Presence of cerebrospinal fluid drainage device; Z82.49 Family history of ischemic heart disease and other diseases of the circulatory system; Z79.82 Long term (current) use of aspirin; Z79.899 Other long term (current) drug therapy
CPT/HCPCS: 36415; 36600; 70450; 70551; 71045; 74018; 74230; 80048; 80053; 80076; 82140; 82375; 82607; 82746; 82805; 82962; 83036; 83605; 83735; 84100; 84439; 84443; 84481; 84484; 85025; 85610; 87040; 87804; 92523; 92610; 92611; 93005; 96374; 97112; 97116; 97163; 97167; 97530; 99285; A6261; C1893; G0482; J1200; J1650; J1815; J1953; J2270; J2405; J2765; J7030; J7040; J7050; J7620; J8597

== ENCOUNTER 2017-12-30 10:31 | Inpatient (IN) | payer MEDICARE, MEDICAID ==
[~2017-12-30] VITALS: Ht 167.6 cm; Wt 106.6 kg
[~2017-12-30 10:31] MED LIST changes: +ACET-2178 PO; +BACL-141 PO; +DIPH25CA83 PO; +DOCU-150 PO; +FAMO-134 PO; +GABA-290 PO; +KEPP500 PO; +LACT10SO6 PO; +LIDOCAINE PATCH 5% TOP; +LOV40 SQ; +ONDA4SOL2 PO
[2017-12-30 12:04] LABS: BASOPHILS % 0.4 % (0.0-2.0); EOSINOPHILS % 3.1 % (0.0-5.0); HEMATOCRIT. 29.3 % (42.0-52.0); HEMOGLOBIN. 9.6 g/dL (14.0-18.0); LYMPHOCYTES % 26.2 % (20.0-50.0); MEAN CORPUSCULAR HEMOGLOBIN 32.3 pg (28.0-32.0); MEAN CORPUSCULAR VOLUME 98.2 fL (80.0-94.0); MEAN PLATELET VOLUME 7.7 fl (7.4-10.4); MONOCYTES % 8.1 % (2.0-8.0); NEUTROPHILS % 62.2 % (40.0-76.0); PLATELET 207 x1000/uL (130-400); RED BLOOD CELL COUNT 2.99 mill/uL (4.7-6.1); RED CELL DISTRIBUTION WIDTH 15.4 % (11.6-14.6)
[2017-12-30 12:10] LABS: CHLORIDE 96 mEq/L (98-107)
[2017-12-30 12:12] LABS: INR 1.1; PROTHROMBIN TIME 11.2 sec (9.4-11.6)
[2017-12-30 17:00] VITALS: BP 168/74
[2017-12-30 17:10] VITALS: BP 168/74
[2017-12-30] MEDS ORDERED: ENOXAPARIN 40MG/0.4ML SYR SUBCUT SCH (17:45)
[2017-12-30] MEDS ORDERED: MAGNESIUM/ALUMINUM HYDROXIDE/SIMETHICONE 30ML UDC PO PRN (18:00)
[2017-12-30] MEDS ORDERED: HYDROMORPHONE HCL/PF 2MG/ML CPJ IV PRN (18:00)
[2017-12-30] MEDS ORDERED: LORAZEPAM 2MG/ML CPJ IV PRN (18:00)
[2017-12-30] MEDS ORDERED: ACETAMINOPHEN 325MG TABLET PO PRN (18:00)
[2017-12-30] MEDS ORDERED: ONDANSETRON HCL 4MG/2ML VIAL IV PRN (18:00)
[2017-12-30] MEDS ORDERED: CLONIDINE 0.1MG TABLET PO PRN (18:00)
[2017-12-30 20:00] VITALS: BP 187/74
[2017-12-30] MEDS ORDERED: DEXTROSE 50% WATER 50ML SYRINGE IV PRN (20:00)
[2017-12-30] MEDS: DEXT 5%/0.45% NACL 1000ML 1,000 ML IV SCH (20:10)
[2017-12-30] MEDS: ENOXAPARIN 30MG/0.3ML SYR SUBCUT SCH (20:11)
[2017-12-30] MEDS ORDERED: LEVETIRACETAM 1,000 MG in SODIUM CHLORIDE 0.9% 100 ML IV SCH (20:30)
[2017-12-30] MEDS ORDERED: LEVETIRACETAM 500MG PREMIX 100 ML IV SCH ×2 (20:30→21:00)
[2017-12-30] MEDS: INSULIN LISPRO 100 UNITS/ML SUBCUT SCH (21:00)
[2017-12-30] MEDS ORDERED: LEVETIRACETAM 500MG TABLET PO SCH (21:00)
[2017-12-30] MEDS: BLOOD SUGAR DIAGNOSTIC STRIP TEST SCH (21:00)
[2017-12-30] MEDS: LEVETIRACETAM 1000MG/100ML 100 ML IV SCH (21:27)
[2017-12-31] VITALS: BP 147/66
[2017-12-31] MEDS: BLOOD SUGAR DIAGNOSTIC STRIP TEST SCH ×4 (05:52→20:37)
[2017-12-31] MEDS: INSULIN LISPRO 100 UNITS/ML SUBCUT SCH ×4 (07:34→20:37)
[2017-12-31 08:00] VITALS: BP 197/76
[2017-12-31 09:00] VITALS: BP 154/72
[2017-12-31] MEDS: LEVETIRACETAM 1000MG/100ML 100 ML IV SCH ×2 (10:09→20:38)
[2017-12-31] MEDS ORDERED: ONDANSETRON HCL 4MG/2ML VIAL IV PRN (10:45)
[2017-12-31] MEDS ORDERED: IPRATROPIUM/ALBUTEROL 0.5-3(2.5)MG/3ML NEB INH PRN (11:00)
[2017-12-31] MEDS: PANTOPRAZOLE SODIUM 40 MG/VIAL IV SCH (11:10)
[2017-12-31 12:00] VITALS: BP 147/78
[2017-12-31] MEDS ORDERED: LORAZEPAM 2MG/ML CPJ IV PRN (14:00)
[2017-12-31 14:16] LABS: AMMONIA 15 uMol/L (<32)
[2017-12-31 16:00] VITALS: BP 171/71
[2017-12-31] MEDS: DEXT 5%/0.45% NACL 1000ML 1,000 ML IV SCH (17:51)
[2017-12-31] MEDS: ENOXAPARIN 30MG/0.3ML SYR SUBCUT SCH (17:51)
[2017-12-31] MEDS ORDERED: CEFTRIAXONE 1,000 MG in DEXTROSE 5% WATER 50 ML IV SCH (18:15)
[2017-12-31] MEDS ORDERED: CEFTRIAXONE 1 G PREMIX 50 ML IV SCH (20:00)
[2017-12-31 20:43] VITALS: BP 131/65
[2017-12-31] MEDS: CEFTRIAXONE 1 G PREMIX 50 ML IV SCH (21:00)
[2018-01-01 00:01] VITALS: BP 160/70
[2018-01-01 01:13] LABS: AMMONIA < 10 uMol/L (<32)
[2018-01-01 04:00] VITALS: BP 144/67
[2018-01-01 06:17] LABS: EOSINOPHILS % 2.6 % (0.0-5.0); HEMATOCRIT. 27.3 % (42.0-52.0); HEMOGLOBIN. 9.4 g/dL (14.0-18.0); LYMPHOCYTES % 23.2 % (20.0-50.0); MEAN CORPUSCULAR HEMOGLOBIN 33.4 pg (28.0-32.0); MEAN CORPUSCULAR VOLUME 97.1 fL (80.0-94.0); MEAN PLATELET VOLUME 8.1 fl (7.4-10.4); MONOCYTES % 7.2 % (2.0-8.0); PLATELET 191 x1000/uL (130-400); RED BLOOD CELL COUNT 2.81 mill/uL (4.7-6.1)
[2018-01-01 06:40] LABS: PHOSPHORUS 4.3 mg/dL (2.5-4.9)
[2018-01-01] MEDS: BLOOD SUGAR DIAGNOSTIC STRIP TEST SCH ×4 (06:44→21:08)
[2018-01-01 06:45] LABS: T4 FREE 1.18 ng/dL (0.76-1.46)
[2018-01-01 08:00] VITALS: BP 126/60
[2018-01-01] MEDS: INSULIN LISPRO 100 UNITS/ML SUBCUT SCH ×4 (08:10→21:00)
[2018-01-01] MEDS: LEVETIRACETAM 1000MG/100ML 100 ML IV SCH ×2 (08:31→21:01)
[2018-01-01] MEDS: PANTOPRAZOLE SODIUM 40 MG/VIAL IV SCH (08:31)
[2018-01-01 12:00] VITALS: BP 158/82
[2018-01-01] MEDS: AMLODIPINE 5MG TABLET PO SCH ×2 (12:29→21:00)
[2018-01-01 16:00] VITALS: BP 177/87
[2018-01-01] MEDS: DEXT 5%/0.45% NACL 1000ML 1,000 ML IV SCH (17:02)
[2018-01-01] MEDS: HYDRALAZINE 20MG/ML VIAL IV PRN (17:08)
[2018-01-01] MEDS: ENOXAPARIN 30MG/0.3ML SYR SUBCUT SCH (17:32)
[2018-01-01 20:00] VITALS: BP 167/71
[2018-01-01] MEDS ORDERED: LISINOPRIL 10MG TABLET PO SCH (21:00)
[2018-01-01] MEDS: CEFTRIAXONE 1 G PREMIX 50 ML IV SCH (21:58)
[2018-01-02] VITALS: BP 157/50
[2018-01-02 04:00] VITALS: BP 145/64
[2018-01-02 06:55] LABS: BASOPHILS % 1.1 % (0.0-2.0); EOSINOPHILS % 3.1 % (0.0-5.0); HEMATOCRIT. 27.7 % (42.0-52.0); HEMOGLOBIN. 9.4 g/dL (14.0-18.0); LYMPHOCYTES % 22.4 % (20.0-50.0); MEAN CORPUSCULAR HEMOGLOBIN 32.6 pg (28.0-32.0); MEAN CORPUSCULAR VOLUME 96.1 fL (80.0-94.0); MEAN PLATELET VOLUME 7.9 fl (7.4-10.4); MONOCYTES % 8.5 % (2.0-8.0); NEUTROPHILS % 64.9 % (40.0-76.0); PLATELET 205 x1000/uL (130-400); RED BLOOD CELL COUNT 2.88 mill/uL (4.7-6.1)
[2018-01-02] MEDS: BLOOD SUGAR DIAGNOSTIC STRIP TEST SCH ×4 (07:40→21:01)
[2018-01-02 08:00] VITALS: BP 167/75
[2018-01-02] MEDS: INSULIN LISPRO 100 UNITS/ML SUBCUT SCH ×4 (08:10→21:00)
[2018-01-02] MEDS: HYDRALAZINE 20MG/ML VIAL IV PRN (08:23)
[2018-01-02] MEDS: LEVETIRACETAM 1000MG/100ML 100 ML IV SCH ×2 (08:23→20:51)
[2018-01-02] MEDS: PANTOPRAZOLE SODIUM 40 MG/VIAL IV SCH (08:23)
[2018-01-02] MEDS: AMLODIPINE 5MG TABLET PO SCH ×2 (09:00→20:46)
[2018-01-02 12:00] VITALS: BP 166/76
[2018-01-02] MEDS: ENALAPRIL 1.25MG/ML VIAL 1ML IV SCH ×2 (13:14→17:52)
[2018-01-02] MEDS ORDERED: VANCOMYCIN 2,000 MG in SODIUM CHLORIDE 0.9% 500 ML IV SCH (15:00)
[2018-01-02 16:02] VITALS: BP 127/70
[2018-01-02 16:59] LABS: AMMONIA < 10 uMol/L (<32)
[2018-01-02] MEDS: ENOXAPARIN 30MG/0.3ML SYR SUBCUT SCH (17:52)
[2018-01-02] MEDS: DEXT 5%/0.45% NACL 1000ML 1,000 ML IV SCH (17:53)
[2018-01-02 20:00] VITALS: BP 159/69
[2018-01-02] MEDS: CEFTRIAXONE 1 G PREMIX 50 ML IV SCH (20:50)
[2018-01-03] VITALS: BP 160/62
[2018-01-03] MEDS: ENALAPRIL 1.25MG/ML VIAL 1ML IV SCH ×4 (01:43→17:42)
[2018-01-03 04:00] VITALS: BP 166/76
[2018-01-03] MEDS: INSULIN LISPRO 100 UNITS/ML SUBCUT SCH ×4 (06:09→21:00)
[2018-01-03] MEDS: BLOOD SUGAR DIAGNOSTIC STRIP TEST SCH ×4 (06:09→21:46)
[2018-01-03 07:39] LABS: BASOPHILS % 0.8 % (0.0-2.0); EOSINOPHILS % 3.5 % (0.0-5.0); HEMATOCRIT. 26.7 % (42.0-52.0); LYMPHOCYTES % 16.6 % (20.0-50.0); MEAN CORPUSCULAR HEMOGLOBIN 33.3 pg (28.0-32.0); MEAN CORPUSCULAR VOLUME 98.8 fL (80.0-94.0); MEAN PLATELET VOLUME 8.3 fl (7.4-10.4); NEUTROPHILS % 72.1 % (40.0-76.0); PLATELET 205 x1000/uL (130-400); RED CELL DISTRIBUTION WIDTH 15.2 % (11.6-14.6)
[2018-01-03 08:00] VITALS: BP 162/70
[2018-01-03] MEDS: LEVETIRACETAM 1000MG/100ML 100 ML IV SCH ×2 (08:31→21:38)
[2018-01-03] MEDS: PANTOPRAZOLE SODIUM 40 MG/VIAL IV SCH (08:31)
[2018-01-03 12:00] VITALS: BP 165/87
[2018-01-03 16:00] VITALS: BP 137/85
[2018-01-03] MEDS: ENOXAPARIN 30MG/0.3ML SYR SUBCUT SCH (17:36)
[2018-01-03] MEDS: DEXT 5%/0.45% NACL 1000ML 1,000 ML IV SCH (17:40)
[2018-01-03 20:00] VITALS: BP 157/77
[2018-01-03] MEDS: AMLODIPINE 5MG TABLET PO SCH (21:00)
[2018-01-03] MEDS: CEFTRIAXONE 1 G PREMIX 50 ML IV SCH (22:43)
[2018-01-04] VITALS (7 sets, daily range): BP systolic 123–171; BP diastolic 56–79
[2018-01-04] MEDS: ENALAPRIL 1.25MG/ML VIAL 1ML IV SCH ×4 (00:45→18:00)
[2018-01-04] MEDS: BLOOD SUGAR DIAGNOSTIC STRIP TEST SCH ×4 (06:45→20:41)
[2018-01-04] MEDS: INSULIN LISPRO 100 UNITS/ML SUBCUT SCH ×4 (08:10→20:41)
[2018-01-04] MEDS: AMLODIPINE 5MG TABLET PO SCH ×2 (08:52→21:22)
[2018-01-04] MEDS: HYDRALAZINE 20MG/ML VIAL IV PRN (08:58)
[2018-01-04] MEDS: PANTOPRAZOLE SODIUM 40 MG/VIAL IV SCH (08:58)
[2018-01-04] MEDS: LEVETIRACETAM 1000MG/100ML 100 ML IV SCH ×2 (09:00→21:22)
[2018-01-04] MEDS ORDERED: LACTULOSE 20G/30ML UDC PO PRN (13:45)
[2018-01-04] MEDS: DOCUSATE SODIUM 250MG CAPSULE PO SCH (13:45)
[2018-01-04] MEDS: ENOXAPARIN 30MG/0.3ML SYR SUBCUT SCH (19:02)
[2018-01-04] MEDS: LEVETIRACETAM 500MG/5ML CUP PO SCH (20:57)
[2018-01-04] MEDS: CEFTRIAXONE 1 G PREMIX 50 ML IV SCH (21:46)
[2018-01-04] MEDS: ZOLPIDEM TARTRATE 5MG TABLET PO PRN (22:05)
[2018-01-05] VITALS (7 sets, daily range): BP systolic 121–172; BP diastolic 58–86
[2018-01-05] MEDS: ENALAPRIL 1.25MG/ML VIAL 1ML IV SCH ×4 (00:30→18:55)
[2018-01-05] MEDS: BLOOD SUGAR DIAGNOSTIC STRIP TEST SCH ×4 (05:40→21:39)
[2018-01-05 06:58] LABS: BASOPHILS % 1.1 % (0.0-2.0); EOSINOPHILS % 3.4 % (0.0-5.0); HEMATOCRIT. 27.2 % (42.0-52.0); HEMOGLOBIN. 9.2 g/dL (14.0-18.0); LYMPHOCYTES % 24.2 % (20.0-50.0); MEAN CORPUSCULAR HEMOGLOBIN 32.8 pg (28.0-32.0); MEAN CORPUSCULAR VOLUME 97.3 fL (80.0-94.0); MEAN PLATELET VOLUME 8.3 fl (7.4-10.4); MONOCYTES % 8.1 % (2.0-8.0); NEUTROPHILS % 63.2 % (40.0-76.0); PLATELET 230 x1000/uL (130-400); RED CELL DISTRIBUTION WIDTH 15.4 % (11.6-14.6)
[2018-01-05] MEDS: INSULIN LISPRO 100 UNITS/ML SUBCUT SCH ×4 (07:51→21:00)
[2018-01-05] MEDS ORDERED: LIDOCAINE HCL/PF 1% 10 MG/ML 5ML VIAL ONE (08:15)
[2018-01-05] MEDS ORDERED: SODIUM BICARBONATE 4% (2.4MEQ) 5ML VIAL IV ONE (08:15)
[2018-01-05] MEDS: AMLODIPINE 5MG TABLET PO SCH ×2 (09:00→21:55)
[2018-01-05] MEDS: DOCUSATE SODIUM 250MG CAPSULE PO SCH (09:00)
[2018-01-05] MEDS: OMEPRAZOLE 20MG CAPSULE EXTENDED RELEASE PO SCH (09:40)
[2018-01-05] MEDS: LEVETIRACETAM 500MG/5ML CUP PO SCH ×2 (09:40→21:55)
[2018-01-05] MEDS ORDERED: VANCOMYCIN 1,500 MG in DEXT 5% WATER 500 ML IV NR (12:00)
[2018-01-05] MEDS ORDERED: DIPHENHYDRAMINE 50MG/ML VIAL IV PRN (12:45)
[2018-01-05] MEDS ORDERED: DIPHENHYDRAMINE 50MG/ML VIAL IV NR (13:00)
[2018-01-05] MEDS: ENOXAPARIN 30MG/0.3ML SYR SUBCUT SCH (18:55)
[2018-01-05] MEDS: CEFTRIAXONE 1 G PREMIX 50 ML IV SCH (21:55)
[2018-01-05] MEDS: ZOLPIDEM TARTRATE 5MG TABLET PO PRN (22:18)
[2018-01-06 00:17] VITALS: BP 136/61
[2018-01-06] MEDS: ENALAPRIL 1.25MG/ML VIAL 1ML IV SCH ×3 (00:27→12:00)
[2018-01-06 04:00] VITALS: BP 117/66
[2018-01-06] MEDS: OMEPRAZOLE 20MG CAPSULE EXTENDED RELEASE PO SCH ×2 (07:40→09:08)
[2018-01-06 08:00] VITALS: BP 124/82
[2018-01-06] MEDS: BLOOD SUGAR DIAGNOSTIC STRIP TEST SCH ×2 (08:05→13:36)
[2018-01-06] MEDS: INSULIN LISPRO 100 UNITS/ML SUBCUT SCH ×2 (08:05→13:10)
[2018-01-06] MEDS: DOCUSATE SODIUM 250MG CAPSULE PO SCH ×2 (09:00→09:08)
[2018-01-06] MEDS: LEVETIRACETAM 500MG/5ML CUP PO SCH (09:08)
[2018-01-06] MEDS: AMLODIPINE 5MG TABLET PO SCH (09:09)
[2018-01-06] MEDS ORDERED: METOPROLOL TARTRATE 25MG TABLET PO SCH (11:00)
[2018-01-06 12:00] VITALS: BP 111/68
[2018-01-06 13:58] VITALS: BP 111/63
[2018-01-06 16:31] VITALS: BP 136/63
[2018-01-06] MEDS ORDERED: ATORVASTATIN CALCIUM 10MG TABLET PO SCH (21:00)
[2018-01-07] MEDS ORDERED: DIPHENHYDRAMINE 50MG/ML VIAL IV PRN (13:00)
== END 2018-01-06 15:40 | DRG 91 ==
LOC: ER 11:05 → 7WST 14:19 → ENRESERV 15:28 → 7WST 12-31 04:32
PROVIDERS: ADMIT Family Medicine Adult Medicine; ATTEND Family Medicine Adult Medicine
PROC: 5A1D70Z Performance of Urinary Filtration, Intermittent, Less than 6 Hours Per Day (ICD-10-PCS; principal; 2017-12-31)
PROC: 5A1D70Z Performance of Urinary Filtration, Intermittent, Less than 6 Hours Per Day (ICD-10-PCS; 2018-01-02)
PROC: 5A1D70Z Performance of Urinary Filtration, Intermittent, Less than 6 Hours Per Day (ICD-10-PCS; 2018-01-03)
DX: G92 Toxic encephalopathy (principal); E43 Unspecified severe protein-calorie malnutrition; E11.22 Type 2 diabetes mellitus with diabetic chronic kidney disease; E11.43 Type 2 diabetes mellitus with diabetic autonomic (poly)neuropathy; G90.8 Other disorders of autonomic nervous system; I47.1 Supraventricular tachycardia; N18.6 End stage renal disease; I13.11 Hypertensive heart and chronic kidney disease without heart failure, with stage 5 chronic kidney disease, or end stage renal disease; R47.01 Aphasia; G40.909 Epilepsy, unspecified, not intractable, without status epilepticus; G81.10 Spastic hemiplegia affecting unspecified side; K31.84 Gastroparesis; D63.1 Anemia in chronic kidney disease; E78.5 Hyperlipidemia, unspecified; R13.10 Dysphagia, unspecified; Z79.4 Long term (current) use of insulin; Z79.899 Other long term (current) drug therapy; Z87.891 Personal history of nicotine dependence; Z99.2 Dependence on renal dialysis; Z91.19 Patient's noncompliance with other medical treatment and regimen; Z93.1 Gastrostomy status; Z79.82 Long term (current) use of aspirin; Z68.37 Body mass index [BMI] 37.0-37.9, adult
CPT/HCPCS: 36415; 70450; 70551; 71045; 80048; 80051; 80053; 80061; 80202; 82140; 82962; 83721; 83735; 83880; 84100; 84439; 84443; 84481; 84484; 85025; 85610; 92523; 92610; 93005; 93970; 97116; 97163; 97166; 97530; 99285; A6261; C1893; C9113; J0360; J0696; J1200; J1650; J1953; J2405; J3370; J3490; J7030; J7040; J7050; J7060

== ENCOUNTER 2018-07-15 15:41 | Emergency (ER) | payer MEDICARE, MEDICAID ==
[~2018-07-15] VITALS: Ht 172.7 cm; Wt 118.0 kg
[~2018-07-15 15:41] MED LIST changes: -ASPI-1158 PO; +HYDR-4001 PO; +INSLIS SUBCUT; -LOV40 SQ; +METO5TAB86 PO; -ONDA4SOL2 PO; +SIME80TA15 PO; -TRAZ-129 PO; +TRAZ-212 PO; +[UNRECOGNIZED DRUG - CODE] ID
[2018-07-15 16:54] LABS: BASOPHILS % 1.1 % (0.0-2.0); EOSINOPHILS % 3.6 % (0.0-5.0); HEMATOCRIT. 33.9 % (42.0-52.0); HEMOGLOBIN. 10.9 g/dL (14.0-18.0); LYMPHOCYTES % 25.2 % (20.0-50.0); MEAN CORPUSCULAR HEMOGLOBIN 29.1 pg (28.0-32.0); MEAN CORPUSCULAR VOLUME 90.4 fL (80.0-94.0); MEAN PLATELET VOLUME 7.2 fl (7.4-10.4); MONOCYTES % 6.9 % (2.0-8.0); NEUTROPHILS % 63.2 % (40.0-76.0); PLATELET 172 x1000/uL (130-400); RED BLOOD CELL COUNT 3.75 mill/uL (4.7-6.1); RED CELL DISTRIBUTION WIDTH 19.1 % (11.6-14.6)
[2018-07-15 17:03] LABS: CHLORIDE 98 mEq/L (98-107)
[2018-07-15 20:48] VITALS: BP 133/56
== END 2018-07-15 21:00 | disposition home or self-care (01) ==
LOC: ER 15:41
DX: R11.2 Nausea with vomiting, unspecified (principal); I12.0 Hypertensive chronic kidney disease with stage 5 chronic kidney disease or end stage renal disease; E11.22 Type 2 diabetes mellitus with diabetic chronic kidney disease; N18.6 End stage renal disease; Z99.2 Dependence on renal dialysis; G40.909 Epilepsy, unspecified, not intractable, without status epilepticus; Z86.73 Personal history of transient ischemic attack (TIA), and cerebral infarction without residual deficits
CPT/HCPCS: 36415; 71045; 74176; 83880; 84484; 93005; 99285